=== PATIENT | male | born 1940 | race Caucasian/White ===

== ENCOUNTER 2017-03-29 06:37 | Observation (INO) ==
[2017-03-29] MEDS ORDERED: LACTATED RINGERS 1,000 ML IV ONE (06:59)
--- NOTE | 2017-03-29 07:03 | Emergency Department Note ---
Nausea/Vomiting/Diarrhea HPI - General Chief complaint: Nausea/Vomiting/Diarrhea Stated complaint: Nausea/Vomting since yesterday. Time Seen by Provider: 03/29/17 07:00 Source: patient Mode of arrival: EMS Limitations: no limitations - History of Present Illness HPI Narrative: Patient had 2 episodes of emesis last night. He also had a few episodes of vomiting the night before. He ate a good breakfast yesterday morning but then was more fatigued yesterday during the day, then last night vomited again. He is brought in by ambulance today, brother called EMS when he checked on him early this morning. He had vomited around his mouth and on his clothes. No diarrhea. 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.e denies abdominal pain, denies diarrhea, no fevers or chills, no chest pain or shortness of breath MD complaint: nausea, vomiting - Related Data Home Medications Medication Instructions Recorded Confirmed aspirin 81 mg tablet,delayed 81 mg PO QDAY tab 03/06/15 12/22/16 release cholecalciferol (vitamin D3) 1,000 1,000 unit PO QDAY cap 03/06/15 12/22/16 unit capsule clopidogrel 75 mg tablet 75 mg PO QDAY tab 03/06/15 12/22/16 finasteride 5 mg tablet 5 mg PO QDAY tab 03/06/15 12/22/16 levothyroxine 50 mcg capsule 50 mcg PO QDAY cap 03/06/15 12/22/16 multivitamin tablet 1 tab PO QDAY tab 03/06/15 12/22/16 nitroglycerin 0.4 mg sublingual 0.4 mg SUBLINGUAL Q5MIN PRN tab 03/06/15 tablet sitagliptin 100 mg tablet 100 mg PO QDAY tab 03/06/15 12/22/16 tamsulosin 0.4 mg capsule 0.4 mg PO QDAY cap 03/06/15 12/22/16 gabapentin 100 mg capsule 100 mg PO BID cap 05/14/15 12/22/16 insulin aspart 100 unit/mL 8 unit SUB-Q TID ml 05/14/15 12/22/16 subcutaneous solution insulin glargine 100 unit/mL 35 unit SUB-Q QDAY ml 05/14/15 12/22/16 subcutaneous solution pantoprazole 40 mg tablet,delayed PO 90 Days 12/22/16 12/22/16 release Previous Rx's Medication Instructions Recorded HYDROcodone/APAP 5/325MG [[place] 1 - 2 tab PO Q4HP PRN #30 tab 09/22/15 5/325Mg] furosemide 40 mg tablet 40 mg PO BID #180 tab 12/22/16 Allergies Allergy/AdvReac Type Severity Reaction Status Date / Time clindamycin Allergy Rash Verified 02/20/17 09:27 Review of Systems All systems ED: reviewed and negative except as stated. Constitutional: Denies: fever, chills Cardiovascular: Reports: dyspnea on exertion. Denies: chest pain, palpitations Respiratory: Denies: cough Gastrointestinal: Reports: nausea, vomiting. Denies: abdominal pain, diarrhea, constipation Genitourinary: Denies: as per HPI, dysuria Musculoskeletal: Reports: as per HPI. Denies: back pain Neurological: Reports: weakness. Denies: confusion Endocrine: Reports: fatigue Hematological/Lymphatic: Denies: easy bleeding Allergic/Immunologic: Denies: facial swelling Past Medical History - Past Medical History Source: old records reviewed Medical history: Reports: arthritis, coronary artery disease, diabetes, hyperlipidemia, hypertension, renal disease, thyroid disease, other Surgical history ED: Reports: coronary bypass (CABG), orthopedic, other Psychiatric history: Reports: no psych history Family history: Reports: no significant family history - Social History smoking status: Former smoker Alcohol use: Reports: Rarely Drug use: Reports: none Physical Exam - General Limitations: no limitations General appearance: alert, in no apparent distress - Head Head exam: atraumatic, normocephalic, normal inspection - Eye Eye exam: Present: normal appearance, PERRL, EOMI - ENT ENT exam: normal exam, normal oropharynx, mucous membranes moist - Neck Neck exam: Present: normal inspection, full ROM, trachea midline. Absent: tenderness, meningismus, thyromegaly - Chest Chest inspection: Present: normal inspection, symmetric chest wall rise - Respiratory Respiratory exam: Present: normal lung sounds bilaterally. Absent: respiratory distress, wheezes - Cardiovascular Cardiovascular exam: Present: regular rate, normal heart sounds - Abdominal Exam Abdominal exam: Present: soft, distention, tenderness, normal bowel sounds. Absent: guarding, rebound, rigidity Abdominal tenderness: Present: RUQ, mild - exam: Present: normal inspection - Extremities Exam Extremities exam: Present: normal inspection - Back Exam Back exam: Present: normal inspection, full ROM. Absent: CVA tenderness (R), CVA tenderness (L) - Neurological Exam Neurological exam: Present: alert, oriented X3, CN II-XII intact - Psychiatric Psychiatric exam: Present: normal affect - Skin Skin exam: Present: warm, dry, intact. Absent: rash, cyanosis, pallor Course - Reevaluation(s) Reevaluation #1: The gallbladder ultrasound appears to show acute cholecystitis with a lot of sludge in the gallbladder and thickening of the gallbladder wall. Also a little bit of fluid around the gallbladder. Impression is acute cholecystitis. I talked with Dr. Medellin and he will be admitted to the hospital on IV antibiotics. Vital Signs Temperature 98.4 F 03/29/17 06:38 Pulse Rate 54 L 03/29/17 06:38 Respiratory Rate 18 03/29/17 06:38 Blood Pressure 164/80 03/29/17 06:38 Pulse Oximetry (%) 99 03/29/17 06:38 Temperature 98.4 F 03/29/17 06:38 Pulse Rate 81 03/29/17 07:47 Respiratory Rate 18 03/29/17 06:38 Blood Pressure 168/82 03/29/17 08:17 Pulse Oximetry (%) 97 03/29/17 07:47 Nausea/Vomiting/Diarrhea - [facility] Narrative Medical decision making narrative: impression is acute cholecystitis - Lab Data Result diagrams: 03/29/17 07:14 03/29/17 07:14 Lab Results 03/29/17 03/29/17 Range/Units 07:14 07:14 WBC 14.8 H (4.5-11.0) K/mcL RBC 3.84 L (4.50-5.90) M/mcL Hgb 11.4 L (13.5-16.5) g/dL Hct 33.9 L (41.0-55.0) % MCV 88.3 (80.0-100.0) fL MCH 29.7 (26.0-34.0) pg MCHC 33.6 (31.0-36.0) g/dL RDW 16.2 H (11.5-14.5) % Plt Count 119 L (140-440) K/mcL MPV 9.7 (7.4-10.4) fL Gran % 88.3 H (38.0-78.0) % Lymph % (Auto) 4.9 L (15.5-49.0) % [place] % (Auto) 6.7 (1.0-12.0) % Eos % (Auto) 0 (0.0-7.0) % Baso % (Auto) 0.1 (0.0-2.0) % Gran # 13.1 H (1.8-8.0) K/mcL Lymph # (Auto) 0.7 L (1.5-4.8) K/mcL [place] # (Auto) 1.0 H (0.1-0.9) K/mcL Eos # (Auto) 0 (0.0-0.7) K/mcL Baso # (Auto) 0 (0.0-0.3) K/mcL Sodium 134 (133-145) mmol/L Potassium 4.3 (3.3-5.1) mmol/L Chloride 96 (96-108) mmol/L Carbon Dioxide 20 L (22-30) mmol/L Anion Gap 18.0 H (8-16) BUN 56 H (8-23) mg/dl Creatinine 2.0 H (0.7-1.2) mg/dl GFR Calculation 32 Glucose 335 H (70-105) mg/dL Calcium 8.9 (8.6-10.4) mg/dl Total Bilirubin 0.9 (0.0-1.0) mg/dL AST 14 (0-37) U/l ALT 12 (0-40) U/l Alkaline Phosphatase 72 (39-117) U/L C-Reactive Protein 7.7 H (0.0-0.8) mg/dl Total Protein 6.6 (5.9-8.4) gm/dL Albumin 3.7 (3.2-5.2) gm/dL Globulin 2.9 (2.2-3.7) gm/dL Albumin/Globulin Ratio 1.3 (1.0-2.3) Lipase 16 (7-60) U/L Disposition Pt seen by [facility]MAN/PA only: No Clinical Impression: Acute cholecystitis Disposition: Xfer As Outpt/Obs ([facility]) Condition: Fair Referrals: Regan Cannon MD [Primary Care Provider] -
[2017-03-29] MEDS ORDERED: ONDANSETRON 4 MG/2 ML VIAL IV ONE (07:05)
[2017-03-29 07:40] LABS: Basophils # (Auto) 0 K/mcL (0.0-0.3); Basophils % (Auto) 0.1 % (0.0-2.0); Eosinophils # (Auto) 0 K/mcL (0.0-0.7); Eosinophils % (Auto) 0 % (0.0-7.0); Granulocytes % (Auto) 88.3 % (38.0-78.0); Lymphocytes # (Auto) 0.7 K/mcL (1.5-4.8); Lymphocytes % (Auto) 4.9 % (15.5-49.0); Mean Cell Volume 88.3 fL (80.0-100.0); Mean Corpuscular HGB Conc 33.6 g/dL (31.0-36.0); Mean Corpuscular Hemoglobin 29.7 pg (26.0-34.0); Monocytes % (Auto) 6.7 % (1.0-12.0); Platelet Count 119 K/mcL (140-440); RBC 3.84 M/mcL (4.50-5.90); Red Cell Distribution Width 16.2 % (11.5-14.5)
[2017-03-29 07:58] LABS: ALT/SGPT 12 U/l (0-40); Albumin 3.7 gm/dL (3.2-5.2); Albumin/Globulin Ratio 1.3 (1.0-2.3); Alkaline Phosphatase 72 U/L (39-117); Blood Urea Nitrogen 56 mg/dl (8-23); C-Reactive Protein 7.7 mg/dl (0.0-0.8); Lipase 16 U/L (7-60)
[2017-03-29] MEDS ORDERED: ONDANSETRON 4 MG/2 ML VIAL IV PRN (08:52)
--- NOTE | 2017-03-29 09:07 | Ultrasound Report ---
CLINICAL INFORMATION: Right upper quadrant pain. Nausea and vomiting. TECHNIQUE: Grayscale and color flow Doppler spectral imaging COMPARISON: 09/18/2015 FINDINGS: Abnormal gallbladder. There is a large amount of echogenic material within the gallbladder lumen consistent with stones and sludge. There is some acoustic shadowing. There is no vascular mass. Gallbladder wall is thickened and measures 5 to 6 mm. There is mild pericholecystic fluid. No significantly dilated bile ducts. No intrahepatic bile duct dilatation. Common bile duct measures 6 mm maximally. Negative liver. No focal intrahepatic abnormality. Normal smooth liver contour. No evidence for cirrhosis. No ascites. Normal hepatopedal portal venous flow. Visualized portions of the pancreas are negative. IMPRESSION: 1. Abnormal gallbladder. Stones and sludge are identified. There is gallbladder wall thickening and mild pericholecystic fluid. Findings are consistent with cholecystitis 2. Interval worsening since 09/18/2015 Interpreted and Authenticated by: Cristian Byrd 03/29/17
[2017-03-29] MEDS: PIPERACILLIN SODIUM/TAZOBACTAM 3.375 GM in DEXTROSE 5% IN WATER 50 ML IV SCH ×3 (10:01→21:44)
[2017-03-29] MEDS ORDERED: DEXTROSE 50% 50 ML VIAL IV PRN (11:12)
[2017-03-29] MEDS: INSULIN LISPRO 1 UNIT/0.01 ML UNIT SQ SCH ×4 (11:35→23:57)
[2017-03-29] MEDS: LACTATED RINGERS 1,000 ML IV SCH ×4 (12:05→23:57)
--- NOTE | 2017-03-29 12:25 | XRay Report ---
CLINICAL INFORMATION: Preoperative chest x-ray TECHNIQUE: Semierect AP portable chest x-ray COMPARISON: 10/21/2016, 04/08/2016 FINDINGS: Previous median sternotomy Cardiomegaly. This is stable. No pulmonary edema. No pulmonary congestion. No focal pulmonary parenchymal infiltrate or mass. Lungs are negative. IMPRESSION: 1. Cardiomegaly. No pulmonary congestion or congestive heart failure 2. No acute abnormality. No interval change since 10/21/2016 Interpreted and Authenticated by: Cristian Byrd 03/29/17
[2017-03-29 15:30] LABS: Hemoglobin A1C 7.5 % HGB (4.0-6.0)
--- NOTE | 2017-03-29 16:29 | General Surg History&Physical ---
History of Present Illness Patient information: Note initiated : 03/29/17 at 4:27 pm Service Date, if different from initiated Date: [] Patient: Doni Ramirez 76 y/o M admitted on 03/29/17 for Nausea/Vomting since yesterday.. Chief Complaint: [] HPI: Mr. Ramirez is a 76 year old M admitted with a 2 day history of nausea and vomiting. He had multiple episodes of emesis of bile and food over the past 2 days. He has been unable to keep any food down. He had some epigastric and right upper quadrant pain which was exacerbated by eating. He has known gallstones from previous evaluation. Ultrasound done today confirms the presence of large volume of sludge and gallstones. He also has a thickened gallbladder wall and pericholecystic fluid with white blood count of 14,000. He has cholecystitis and is admitted for treatment. He also has significant dehydration in combination with chronic renal failure and will need rehydration prior to operative therapy. Review of Systems - Constitutional anorexia, fatigue, lethargy, malaise, weakness - EENT Eyes: bilateral: blurred vision, decreased vision Ears: bilateral: decreased hearing Nose, mouth and throat: abnormal hearing, dizziness, headache(s), neck pain - Cardiovascular dyspnea, edema, irregular heart rhythm, leg edema, leg ulcers, palpatations, pedal edema, slow heart rate - Respiratory dyspnea on exertion, chest congestion - Gastrointestinal abdominal pain, bloating, constipation, heartburn, nausea, vomiting - Genitourinary change in urinary stream, difficulty urinating, post void dribbling, urinary hesitancy, urinary incontinence - Musculoskeletal abnormal gait, back pain, joint swelling, muscle cramps, myalgias, numbness, radiating pain into limb, stiffness, tingling - Integumentary alopecia, dry skin, rash, skin ulcer, no changing lesions, no new lesions - Neurological abnormal hearing, numbness, sensory deficit, tingling, weakness - Psychiatric anxiety, depression - Endocrine fatigue - Hematologic/Lymphatic easy bleeding, easy bruising, no lymphadenopathy - Allergic/Immunologic no tongue swelling, no throat swelling, no uticaria, no wheezing, no lip swelling Past History Past medical history: Chronic atrial fibrillation Chronic bradycardia Coronary artery disease Diabetes mellitus type 2 Hypertension Severe peripheral vascular disease Chronic kidney disease stage III Splenomegaly Chronic anemia Thrombocytopenia Chronic ulcers right knee and left plantar surface Chronic urinary retention due to BPH Past surgical history: Angioplasty thrombolysis and stenting left lower extremity 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 Split thickness skin graft left foot and right lower extremity OTIF left hip ORIF right femur Appendectomy Coronary artery bypass graft 6 Past family history: Strong history of coronary artery disease Past social history: Former smoker Occasional alcohol use Denies drug use Medications and Allergies Home Medications Medication Instructions Recorded Confirmed Type aspirin 81 mg tablet,delayed 81 mg PO QDAY tab 03/06/15 03/29/17 History release cholecalciferol (vitamin D3) 1,000 1,000 unit PO QDAY cap 03/06/15 03/29/17 History unit capsule clopidogrel 75 mg tablet 75 mg PO QDAY tab 03/06/15 03/29/17 History finasteride 5 mg tablet 5 mg PO QDAY tab 03/06/15 03/29/17 History levothyroxine 50 mcg capsule 50 mcg PO QDAY cap 03/06/15 03/29/17 History multivitamin tablet 1 tab PO QDAY tab 03/06/15 03/29/17 History nitroglycerin 0.4 mg sublingual 0.4 mg SUBLINGUAL Q5MIN PRN tab 03/06/15 History tablet sitagliptin 100 mg tablet 100 mg PO QDAY tab 03/06/15 03/29/17 History tamsulosin 0.4 mg capsule 0.4 mg PO QDAY cap 03/06/15 03/29/17 History gabapentin 100 mg capsule 100 mg PO BID cap 05/14/15 03/29/17 History insulin aspart 100 unit/mL 8 unit SUB-Q TID ml 05/14/15 03/29/17 History subcutaneous solution insulin glargine 100 unit/mL 35 unit SUB-Q QDAY ml 05/14/15 03/29/17 History subcutaneous solution HYDROcodone/APAP 5/325MG [[place] 1 - 2 tab PO Q4HP PRN #30 tab 09/22/15 03/29/17 Rx 5/325Mg] furosemide 40 mg tablet 40 mg PO BID #180 tab 12/22/16 03/29/17 Rx pantoprazole 40 mg tablet,delayed 40 mg PO QDAY 90 Days 12/22/16 03/29/17 History release Carvedilol [Coreg] 3.125 mg PO BID 03/29/17 03/29/17 History Lisinopril [Zestril] 2.5 mg PO BID 03/29/17 03/29/17 History Allergies Allergy/AdvReac Type Severity Reaction Status Date / Time clindamycin Allergy Rash Verified 02/20/17 09:27 Exam Temp Pulse Resp BP Pulse Ox 97.6 F 58 L 20 142/83 95 03/29/17 16:00 03/29/17 10:02 03/29/17 16:00 03/29/17 16:00 03/29/17 16:00 - General physical appearance well developed, moderate distress, moderate pain, chronically ill, obese - Eyes normal ocular movement, other (Operative changes of both eyes) - ENT normal pinna, normal nares, normal mucosa, no hearing loss, no congestion, decreased hearing - Head Head exam IM: Present: atraumatic, normal inspection, normocephalic - Neck no masses, no bruits, trachea midline, no lymphadectomy, no venous distension, other (No bruit) - Cardiovascular Cardiovascular exam IM: Present: irregular rhythm, +S1, +S2, systolic murmur. Absent: JVD Intensity IM: 09/19 Cardiovascular: Absent peripheral pulses in upper extremities and lower extremities bilaterally - Respiratory normal expansion, normal respiratory effort, clear to percussion, clear to auscultation - Abdomen Abdomen: Present: soft, tender, bowel sounds, distended (Distended with right upper quadrant tenderness and epigastric tenderness) Hernia: Present: none, umbilical (Large umbilical hernia reducible) - Genitourinary Present: normal penis with no external lesions - Integumentary Present: no rash, no growths, no abnormal pigmentation, other (Chronic superficial ulcerations of both lower extremities in various stages of healing; open poorly healing ulceration right anterior knee; open ulceration distal aspect of transmetatarsal amputation on plantar surface with some purulent drainage) - Neurologic Present: normal coordination, other (Decreased sensation left leg) - Musculoskeletal Present: other (Transmetatarsal amputation left lower extremity below the knee amputation right lower extremity;) - Psychiatric Present: oriented to time, oriented to person, oriented to place, speech is normal, memory intact, other ( very flat affect and poor to respond ;somewhat withdrawn;) Assessment and Plan (1) Cholelithiasis and acute cholecystitis without obstruction will need operative therapy after dehydration has been stabilized Status: Acute (2) Chronic kidney disease, stage III (moderate) Exacerbation of chronic kidney disease due to recurrent nausea vomiting, antihypertensive medications, diuretics. And the patient will be slowly rehydrated; diuretics will be withheld prior to surgery Status: Chronic (3) Coronary artery disease Echocardiogram will be ordered Status: Chronic Qualifiers: Coronary Disease-Associated Artery/Lesion type: [place] artery [place] vs. transplanted heart: [place] heart Associated angina: without angina Qualified Code(s): I25.10 - Atherosclerotic heart disease of [place] coronary artery without angina pectoris (4) Diabetes mellitus Status: Chronic Comment: type 2 Qualifiers: Diabetes mellitus type: type 2 Diabetes mellitus complication status: with circulatory complication Diabetes mellitus complication detail: with other circulatory complications Diabetes mellitus terminal operations supervisor insulin use: unspecified mcc insulin use status Qualified Code(s): E11.59 - Type 2 diabetes mellitus with other circulatory complications (5) Hypertensive renal disease Status: Chronic Qualifiers: Hypertensive chronic kidney disease stage: stage 1-4 or unspecified chronic kidney disease Qualified Code(s): I12.9 - Hypertensive chronic kidney disease with stage 1 through stage 4 chronic kidney disease, or unspecified chronic kidney disease (6) PVD (peripheral vascular disease) Status: Chronic
[2017-03-29 20:19] LABS: Blood Urea Nitrogen 54 mg/dl (8-23)
[2017-03-30 01:56] LABS: Appearance,Urine HAZY; Bacteria,Urine FEW /hpf (0); Bilirubin,Urine NEG (NEG); Color,Urine YELLOW; Glucose,Urine (UA) 50 mg/dL (NEG); Leukocyte Esterase,Urine 500 /uL (NEG); Nitrate,Urine NEG (NEG); Protein,Urine 100 mg/dL (NEG); Specific Gravity,Urine 1.019 (1.000-1.035); Urine Blood 0.2 mg/dL (<0.03); Urine Budding Yeast FEW /hpf (0); Urine RBC 14 /hpf (0-1); Urine Squamous Epithelial Cell 8 /hpf (0-4); Urine Transitional Epi Cells < 1 /hpf (0-2); Urine WBC 86 /hpf (0-4); Urobilinogen,Urine NEG (NEG)
[2017-03-30] MEDS: LACTATED RINGERS 1,000 ML IV SCH ×7 (02:07→23:20)
[2017-03-30] MEDS: PIPERACILLIN SODIUM/TAZOBACTAM 3.375 GM in DEXTROSE 5% IN WATER 50 ML IV SCH ×3 (05:57→22:00)
[2017-03-30] MEDS ORDERED: DEXTROSE 50% 50 ML VIAL IV PRN (06:28)
[2017-03-30 07:01] LABS: Blood Urea Nitrogen 50 mg/dl (8-23)
[2017-03-30] MEDS: INSULIN LISPRO 1 UNIT/0.01 ML UNIT SQ SCH ×5 (09:42→21:09)
--- NOTE | 2017-03-30 16:39 | General Surgery Progress Note ---
Subjective Patient reports: feels better, still having pain, pain is less, tolerating liquids well, flatus, bowel movement, afebrile Narrative: Note initiated : 03/30/17 at 4:37 pm Service Date, if different from initiated Date: [] Patient: Doni Ramirez 76 y/o M admitted on 03/29/17 for Nausea/Vomting since yesterday.. Chief Complaint: [Patient feels much better. He has had minimal nausea and his pain has resolved. He has been afebrile. His urine output is decreased but his BUN and creatinine are improving. He does not complain of any shortness of breath or chest pain. His surgery has been delayed until tomorrow morning] Objective Temp Pulse Resp BP Pulse Ox 98.0 F 41 L 20 131/80 96 03/30/17 16:00 03/30/17 04:00 03/30/17 16:00 03/30/17 16:00 03/30/17 16:00 - Additional Data Intake & Output - Last 24 hours: Intake & Output 03/28/17 03/29/17 03/30/17 03/31/17 05:59 05:59 05:59 05:59 Intake Total 2420 / 3420 1120 / 1120 Output Total 2 / Balance 2413 / 3413 1118 / 1118 Weight 198 lb 198 lb - General physical appearance no distress, no pain, chronically ill, obese - Eyes PERRL - ENT no congestion - Neck no venous distension - Cardiovascular Cardiovascular exam: Present: bradycardia, irregular rhythm, +S1, +S2. Absent: JVD - Abdomen soft, non tender, bowel sounds, distended (Obese abdomen but nondistended; good active bowel sounds; nontender in epigastrium and right upper quadrant) - Integumentary no rash, no growths, no abnormal pigmentation - Neurologic normal coordination, normal sensation - Psychiatric oriented to time, oriented to person, oriented to place, speech is normal, memory intact - Labs 03/29/17 07:14 03/30/17 05:18 Diabetes panel 03/29/17 03/30/17 Range/Units 19:00 05:18 Sodium 135 135 (133-145) mmol/L Potassium 4.2 4.2 (3.3-5.1) mmol/L Chloride 99 100 (96-108) mmol/L Carbon Dioxide 22 24 (22-30) mmol/L BUN 54 H 50 H (8-23) mg/dl Creatinine 1.9 H 1.8 H (0.7-1.2) mg/dl Glucose 194 H 150 H (70-105) mg/dL Calcium 8.7 8.5 L (8.6-10.4) mg/dl Calcium panel 03/29/17 03/30/17 Range/Units 19:00 05:18 Calcium 8.7 8.5 L (8.6-10.4) mg/dl Pituitary panel 03/29/17 03/30/17 Range/Units 19:00 05:18 Sodium 135 135 (133-145) mmol/L Potassium 4.2 4.2 (3.3-5.1) mmol/L Chloride 99 100 (96-108) mmol/L Carbon Dioxide 22 24 (22-30) mmol/L BUN 54 H 50 H (8-23) mg/dl Creatinine 1.9 H 1.8 H (0.7-1.2) mg/dl Glucose 194 H 150 H (70-105) mg/dL Calcium 8.7 8.5 L (8.6-10.4) mg/dl Adrenal panel 03/29/17 03/30/17 Range/Units 19:00 05:18 Sodium 135 135 (133-145) mmol/L Potassium 4.2 4.2 (3.3-5.1) mmol/L Chloride 99 100 (96-108) mmol/L Carbon Dioxide 22 24 (22-30) mmol/L BUN 54 H 50 H (8-23) mg/dl Creatinine 1.9 H 1.8 H (0.7-1.2) mg/dl Glucose 194 H 150 H (70-105) mg/dL Calcium 8.7 8.5 L (8.6-10.4) mg/dl Assessment and Plan (1) Cholelithiasis and acute cholecystitis without obstruction Status: Acute Assessment and plan: We will proceed with laparoscopic cholecystectomy in the morning Current Visit: Yes (2) Chronic kidney disease, stage III (moderate) Status: Chronic Assessment and plan: BUN and creatinine have improved with rehydration Current Visit: No (3) Coronary artery disease Status: Chronic Current Visit: No (4) Diabetes mellitus Problem details: type 2 Status: Chronic Current Visit: No (5) Hypertensive renal disease Status: Chronic Current Visit: No (6) PVD (peripheral vascular disease) Status: Chronic Current Visit: No - Time Spent With Patient Total time spent is greater than 50% in coordination of care (as documented) at patient's floor/unit and/or counseling patient:
[2017-03-31 05:52] LABS: Basophils # (Auto) 0 K/mcL (0.0-0.3); Basophils % (Auto) 0.3 % (0.0-2.0); Eosinophils # (Auto) 0.2 K/mcL (0.0-0.7); Granulocytes % (Auto) 70.5 % (38.0-78.0); Lymphocytes # (Auto) 1.5 K/mcL (1.5-4.8); Lymphocytes % (Auto) 19.5 % (15.5-49.0); Mean Cell Volume 89.9 fL (80.0-100.0); Mean Corpuscular HGB Conc 33.4 g/dL (31.0-36.0); Monocytes # (Auto) 0.6 K/mcL (0.1-0.9); Monocytes % (Auto) 7.7 % (1.0-12.0); Platelet Count 109 K/mcL (140-440); RBC 3.69 M/mcL (4.50-5.90); Red Cell Distribution Width 16.1 % (11.5-14.5)
[2017-03-31] MEDS: PIPERACILLIN SODIUM/TAZOBACTAM 3.375 GM in DEXTROSE 5% IN WATER 50 ML IV SCH ×3 (06:00→21:09)
[2017-03-31 06:21] LABS: ALT/SGPT 13 U/l (0-40); Albumin/Globulin Ratio 1.2 (1.0-2.3); Alkaline Phosphatase 62 U/L (39-117); Bilirubin,Direct < 0.2 mg/dL (0.0-0.3); Blood Urea Nitrogen 38 mg/dl (8-23); Gamma Glutamyl Transpeptidase 18 U/L (8-61); Magnesium 1.9 mg/dL (1.6-2.5); Uric Acid 7.6 mg/dL (2.5-8.0)
[2017-03-31] MEDS ORDERED: GLYCOPYRROLATE 0.2 MG/ML VIAL IV ONE (07:55)
[2017-03-31] MEDS ORDERED: LIDOCAINE HCL/PF 100 MG/5 ML SYRINGE IV ONE (07:55)
[2017-03-31] MEDS ORDERED: SUCCINYLCHOLINE 20 MG/ML ML IV ONE (07:55)
[2017-03-31] MEDS ORDERED: ROCURONIUM 10 MG/ML ML IV ONE (07:55)
[2017-03-31] MEDS ORDERED: ETOMIDATE 20 MG/10 ML VIAL IV ONE (07:55)
[2017-03-31] MEDS ORDERED: ONDANSETRON 4 MG/2 ML VIAL IV ONE (07:55)
[2017-03-31] MEDS ORDERED: KETAMINE 100 MG/ML ML IV ONE (07:55)
[2017-03-31] MEDS ORDERED: MIDAZOLAM 2 MG/2 ML VIAL IV ONE (07:55)
[2017-03-31] MEDS ORDERED: EPINEPHrine 1 MG/ML (1:1000) VIAL IV ONE (07:55)
[2017-03-31] MEDS ORDERED: PROPOFOL 200 MG/20 ML VIAL IV ONE (07:55)
[2017-03-31] MEDS ORDERED: fentaNYL 250 MCG/5 ML VIAL IV ONE (07:55)
[2017-03-31] MEDS ORDERED: DEXAMETHASONE 10 MG/ML VIAL IV ONE (07:55)
[2017-03-31] MEDS ORDERED: BENZOCAINE/MENTHOL 1 LOZENGE PO PRN (08:19)
[2017-03-31] MEDS ORDERED: IPRATROPIUM/ALBUTEROL 3 ML AMPUL.NEB NEB PRN (08:19)
[2017-03-31] MEDS ORDERED: PROMETHAZINE 25 MG/ML VIAL IV PRN (08:19)
[2017-03-31] MEDS ORDERED: LACTATED RINGERS 250 ML IV PRN (08:19)
[2017-03-31] MEDS ORDERED: FLUMAZENIL 0.1 MG/ML ML IV PRN (08:19)
[2017-03-31] MEDS ORDERED: diphenhydrAMINE 50 MG/ML VIAL IV PRN (08:19)
[2017-03-31] MEDS ORDERED: HYDROmorphone 2 MG/ML SYRINGE IV PRN ×2 (08:19→13:23)
[2017-03-31] MEDS ORDERED: METHOCARBAMOL 1,000 MG/10 ML VIAL IV PRN (08:19)
[2017-03-31] MEDS ORDERED: ONDANSETRON 4 MG/2 ML VIAL IV PRN ×2 (08:19→10:01)
[2017-03-31] MEDS ORDERED: ATROPINE SULFATE 0.4 MG/ML VIAL IV PRN (08:19)
[2017-03-31] MEDS ORDERED: fentaNYL 100 MCG/2 ML VIAL IV PRN (08:19)
[2017-03-31] MEDS ORDERED: ePHEDrine 50 MG/ML AMPUL IV PRN (08:19)
[2017-03-31] MEDS ORDERED: MEPERIDINE 25 MG/ML SYRINGE IV PRN (08:19)
[2017-03-31] MEDS ORDERED: NALOXONE HCL 0.4 MG/ML VIAL IV PRN (08:19)
[2017-03-31] MEDS ORDERED: LACTATED RINGERS 1,000 ML IV SCH ×2 (08:30→18:45)
--- NOTE | 2017-03-31 08:50 | Brief Operative Note ---
Date of procedure: 03/31/17 Pre-op diagnosis: acute cholecystitis with cholelithiasis Post-op diagnosis: same Procedure: laparoscopic cholecystectomy Grafts/Implants: No Anesthesia: GETA Findings: severe inflammation with thickened gallbladder Complications: none Surgeon: Joseph Medellin Estimated blood loss (cc): 10 Specimens Removed/Pathology: other (gallbladder) Condition: stable Disposition: PACU
[2017-03-31] MEDS ORDERED: DEXTROSE 50% 50 ML VIAL IV PRN ×2 (10:01)
[2017-03-31] MEDS: LACTATED RINGERS 1,000 ML IV SCH ×4 (10:05→18:38)
[2017-03-31] MEDS: INSULIN LISPRO 1 UNIT/0.01 ML UNIT SQ SCH ×4 (10:06→21:08)
[2017-03-31] MEDS ORDERED: chlordiazePOXIDE 25 MG CAPSULE PO PRN (13:23)
[2017-03-31] MEDS: CARVEDILOL 3.125 MG TABLET PO SCH (18:09)
--- NOTE | 2017-03-31 18:44 | General Surgery Consult Note ---
History of Present Illness Patient information: Note initiated : 03/31/17 at 6:42 pm Service Date, if different from initiated Date: [] Patient: Doni Ramirez 76 y/o M admitted on 03/29/17 for Nausea/Vomting since yesterday.. Chief Complaint: [] Consult date: 03/31/17 Requesting physician: Joseph Medellin (wound care) History of present illness: I know this patient from before. He is well established with the wound care clinic. Currently, patient has an open wound on the anterior aspect of his right knee AND left foot plantar neuropathic ulcer. Patient has had all toes amputated. this time around, and was admitted to the hospital with acute abdominal pain and cholecystitis. He subsequently, underwent laparoscopic cholecystectomy. Patient's right anterior knee and left plantar ulcers are stable. I concur with ongoing treatment for same. I have reviewed his records, seen him before and after his cholecystectomy. I spoke at length with patient and his brother . Plan on seeing h im for f/u at the wound care clinic after his recovery from this operation, Medications and Allergies Home Medications Medication Instructions Recorded Confirmed Type aspirin 81 mg tablet,delayed 81 mg PO QDAY tab 03/06/15 03/29/17 History release cholecalciferol (vitamin D3) 1,000 1,000 unit PO QDAY cap 03/06/15 03/29/17 History unit capsule clopidogrel 75 mg tablet 75 mg PO QDAY tab 03/06/15 03/29/17 History finasteride 5 mg tablet 5 mg PO QDAY tab 03/06/15 03/29/17 History levothyroxine 50 mcg capsule 50 mcg PO QDAY cap 03/06/15 03/29/17 History multivitamin tablet 1 tab PO QDAY tab 03/06/15 03/29/17 History nitroglycerin 0.4 mg sublingual 0.4 mg SUBLINGUAL Q5MIN PRN tab 03/06/15 History tablet sitagliptin 100 mg tablet 100 mg PO QDAY tab 03/06/15 03/29/17 History tamsulosin 0.4 mg capsule 0.4 mg PO QDAY cap 03/06/15 03/29/17 History gabapentin 100 mg capsule 100 mg PO BID cap 05/14/15 03/29/17 History insulin aspart 100 unit/mL 8 unit SUB-Q TID ml 05/14/15 03/29/17 History subcutaneous solution insulin glargine 100 unit/mL 35 unit SUB-Q QDAY ml 05/14/15 03/29/17 History subcutaneous solution HYDROcodone/APAP 5/325MG [[place] 1 - 2 tab PO Q4HP PRN #30 tab 09/22/15 03/29/17 Rx 5/325Mg] furosemide 40 mg tablet 40 mg PO BID #180 tab 12/22/16 03/29/17 Rx pantoprazole 40 mg tablet,delayed 40 mg PO QDAY 90 Days 12/22/16 03/29/17 History release Carvedilol [Coreg] 3.125 mg PO BID 03/29/17 03/29/17 History Lisinopril [Zestril] 2.5 mg PO BID 03/29/17 03/29/17 History Allergies Allergy/AdvReac Type Severity Reaction Status Date / Time clindamycin Allergy Mild Rash Verified 03/31/17 13:40 Exam Temp Pulse Resp BP Pulse Ox 97.7 F 58 L 20 160/71 96 03/31/17 16:00 03/31/17 09:50 03/31/17 16:00 03/31/17 16:00 03/31/17 16:00 Results - Labs 04/01/17 03:45 04/01/17 06:13 Abnormal lab results 03/31/17 03/31/17 Range/Units 04:51 04:51 RBC 3.69 L (4.50-5.90) M/mcL Hgb 11.1 L (13.5-16.5) g/dL Hct 33.1 L (41.0-55.0) % RDW 16.1 H (11.5-14.5) % Plt Count 109 L (140-440) K/mcL BUN 38 H (8-23) mg/dl Creatinine 1.6 H (0.7-1.2) mg/dl Glucose 134 H (70-105) mg/dL Calcium 8.5 L (8.6-10.4) mg/dl Total Protein 5.5 L (5.9-8.4) gm/dL Albumin 3.0 L (3.2-5.2) gm/dL Diabetes panel 03/31/17 Range/Units 04:51 Sodium 138 (133-145) mmol/L Potassium 3.9 (3.3-5.1) mmol/L Chloride 102 (96-108) mmol/L Carbon Dioxide 23 (22-30) mmol/L BUN 38 H (8-23) mg/dl Creatinine 1.6 H (0.7-1.2) mg/dl Glucose 134 H (70-105) mg/dL Calcium 8.5 L (8.6-10.4) mg/dl AST 15 (0-37) U/l ALT 13 (0-40) U/l Alkaline Phosphatase 62 (39-117) U/L Total Protein 5.5 L (5.9-8.4) gm/dL Albumin 3.0 L (3.2-5.2) gm/dL Triglycerides 124 (<150) mg/dl Calcium panel 03/31/17 Range/Units 04:51 Calcium 8.5 L (8.6-10.4) mg/dl Phosphorus 2.8 (2.7-4.5) mg/dL Albumin 3.0 L (3.2-5.2) gm/dL Pituitary panel 03/31/17 Range/Units 04:51 Sodium 138 (133-145) mmol/L Potassium 3.9 (3.3-5.1) mmol/L Chloride 102 (96-108) mmol/L Carbon Dioxide 23 (22-30) mmol/L BUN 38 H (8-23) mg/dl Creatinine 1.6 H (0.7-1.2) mg/dl Glucose 134 H (70-105) mg/dL Calcium 8.5 L (8.6-10.4) mg/dl Adrenal panel 03/31/17 Range/Units 04:51 Sodium 138 (133-145) mmol/L Potassium 3.9 (3.3-5.1) mmol/L Chloride 102 (96-108) mmol/L Carbon Dioxide 23 (22-30) mmol/L BUN 38 H (8-23) mg/dl Creatinine 1.6 H (0.7-1.2) mg/dl Glucose 134 H (70-105) mg/dL Calcium 8.5 L (8.6-10.4) mg/dl Total Bilirubin 0.5 (0.0-1.0) mg/dL AST 15 (0-37) U/l ALT 13 (0-40) U/l Alkaline Phosphatase 62 (39-117) U/L Total Protein 5.5 L (5.9-8.4) gm/dL Albumin 3.0 L (3.2-5.2) gm/dL All other labs normal. Assessment and Plan (1) Osteomyelitis of ankle or foot Status: Chronic Priority: Medium Comment: Wound care / dressings and IV antibiotics. 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
[2017-03-31] MEDS: HYDROmorphone 2 MG/ML SYRINGE IM PRN (20:38)
[2017-03-31] MEDS: GABAPENTIN 100 MG CAPSULE PO SCH (20:47)
[2017-04-01] MEDS: HYDROmorphone 2 MG/ML SYRINGE IM PRN (03:27)
[2017-04-01 05:53] LABS: Mean Cell Volume 90.6 fL (80.0-100.0); Mean Corpuscular HGB Conc 33.5 g/dL (31.0-36.0); Mean Corpuscular Hemoglobin 30.3 pg (26.0-34.0); Platelet Count 135 K/mcL (140-440); RBC 3.63 M/mcL (4.50-5.90); Red Cell Distribution Width 16.4 % (11.5-14.5)
[2017-04-01] MEDS ORDERED: HYDROcodone/APAP 5/325MG TABLET PO PRN ×2 (06:26→15:00)
[2017-04-01] MEDS ORDERED: LEVOFLOXACIN 750 MG TABLET PO ONE (06:30)
[2017-04-01 06:33] LABS: Anisocytosis 1+ (NONE SEEN); Band Neutrophils % 2 % (0-10); Basophils % (Manual) 1 % (0-2); Lymphocytes % 15 % (15-49); Monocytes % (Manual) 7 % (1-12); Ovalocytes 1+ (NONE SEEN); Platelet Estimate DECREASED (NORMAL); RBC Morphology ABNORM (NORMAL); Segmented Neutrophils % 75 % (38-78)
[2017-04-01 07:26] LABS: ALT/SGPT 19 U/l (0-40); Albumin 2.7 gm/dL (3.2-5.2); Alkaline Phosphatase 53 U/L (39-117); Bilirubin,Direct < 0.2 mg/dL (0.0-0.3); Blood Urea Nitrogen 34 mg/dl (8-23); Gamma Glutamyl Transpeptidase 17 U/L (8-61); Magnesium 1.9 mg/dL (1.6-2.5); Uric Acid 7.5 mg/dL (2.5-8.0)
[2017-04-01] MEDS ORDERED: PANTOPRAZOLE 40 MG TABLET PO SCH (07:30)
[2017-04-01] MEDS ORDERED: LEVOTHYROXINE 50 MCG TABLET PO SCH (07:30)
[2017-04-01] MEDS ORDERED: TAMSULOSIN 0.4 MG CAPSULE PO SCH (09:00)
[2017-04-01] MEDS ORDERED: FINASTERIDE 5 MG TABLET PO SCH (09:00)
[2017-04-01] MEDS ORDERED: CLOPIDOGREL 75 MG TABLET PO SCH (09:00)
--- NOTE | 2017-04-01 13:38 | Surgical Pathology Report ---
HISTOLOGY SPECIMEN MICROSCOPIC DIAGNOSIS GALLBLADDER, CHOLECYSTECTOMY: -- ACUTE AND CHRONIC CHOLECYSTITIS WITH CHOLELITHIASIS. -- SEROSAL ADHESIONS. ([facility]) CLINICAL HISTORY Vomiting. PROCEDURAL IMPRESSION Cholecystitis; cholelithiasis. GROSS DESCRIPTION Received in formalin labeled gallbladder, is a purple-[place] gallbladder with an overlying layer of fat. It is 7.0 x 2.4 x 2.3 cm. There are multiple metal clips identified; however, there is not a clip on the duct. The specimen contains black-brown sludge consisting of stones from less than 0.1 to 0.1 cm in greatest dimension. The mucosa is scott and rough surfaced. The wall is up to 0.3 cm thick. Procurement Buyer sections submitted - one cassette. ([facility]) Electronically Signed by: Violeta Busby D.O.
[2017-04-01] MEDS: GABAPENTIN 100 MG CAPSULE PO SCH (13:46)
[2017-04-01] MEDS: CARVEDILOL 3.125 MG TABLET PO SCH (13:48)
[2017-04-01] MEDS: INSULIN LISPRO 1 UNIT/0.01 ML UNIT SQ SCH ×2 (13:48→16:11)
[2017-04-01] MEDS ORDERED: NITROGLYCERIN 0.4 MG TAB.SUBL SL PRN (15:00)
--- NOTE | 2017-04-01 15:14 | General Surgery Progress Note ---
Subjective Patient reports: feels better, still having pain, tolerating a regular diet, flatus, bowel movement, afebrile Narrative: Note initiated : 04/01/17 at 3:11 pm Service Date, if different from initiated Date: [] Patient: Doni Ramirez 76 y/o M admitted on 03/29/17 for Nausea/Vomting since yesterday.. Chief Complaint: [Patient is stable. He appears to be more agitated than usual but his vital signs are stable. He complains of shortness of breath but his oxygen saturation is 94-96% on room air and his respiratory rate is 16-18 lying flat in bed. He does not have any rales rhonchi or wheezes. He denies abdominal pain and he has tolerated his diet without difficulty.] Objective Temp Pulse Resp BP Pulse Ox 97.7 F 44 L 20 160/75 94 04/01/17 12:00 04/01/17 04:00 04/01/17 12:00 04/01/17 12:00 04/01/17 12:00 - Additional Data Intake & Output - Last 24 hours: Intake & Output 03/30/17 03/31/17 04/01/17 04/02/17 05:59 05:59 05:59 05:59 Intake Total 2420 / 3420 3507 / 3507 1775 / 1775 120 / 120 Output Total 1075 / 1075 Balance 2413 / 3413 3504 / 3504 700 / 700 120 / 120 Weight 198 lb 199 lb 202 lb - General physical appearance no distress, moderate pain - Eyes PERRL - ENT no congestion - Neck no venous distension - Respiratory clear to auscultation - Cardiovascular Cardiovascular exam: Present: irregular rhythm, +S1, +S2. Absent: JVD - Abdomen soft, distended (Abdomen is mildly distended but soft; he has good active bowel sounds. His incisions look good) Hernia: umbilical - Integumentary no rash, no growths, no abnormal pigmentation - Psychiatric oriented to time, oriented to person, oriented to place, speech is normal, memory intact - Labs 04/01/17 03:45 04/01/17 06:13 Diabetes panel 04/01/17 04/01/17 Range/Units 03:45 06:13 Sodium Not Reportable 137 Potassium Not Reportable 4.3 Chloride Not Reportable 103 Carbon Dioxide Not Reportable 23 BUN Not Reportable 34 H Creatinine Not Reportable 1.7 H Glucose TNP 180 H Calcium Not Reportable 8.5 L AST Not Reportable 19 ALT Not Reportable 19 Alkaline Phosphatase Not Reportable 53 Total Protein Not Reportable 5.3 L Albumin Not Reportable 2.7 L Triglycerides Not Reportable 99 Calcium panel 04/01/17 04/01/17 Range/Units 03:45 06:13 Calcium Not Reportable 8.5 L Phosphorus Not Reportable 2.9 Albumin Not Reportable 2.7 L Pituitary panel 04/01/17 04/01/17 Range/Units 03:45 06:13 Sodium Not Reportable 137 Potassium Not Reportable 4.3 Chloride Not Reportable 103 Carbon Dioxide Not Reportable 23 BUN Not Reportable 34 H Creatinine Not Reportable 1.7 H Glucose TNP 180 H Calcium Not Reportable 8.5 L Adrenal panel 04/01/17 04/01/17 Range/Units 03:45 06:13 Sodium Not Reportable 137 Potassium Not Reportable 4.3 Chloride Not Reportable 103 Carbon Dioxide Not Reportable 23 BUN Not Reportable 34 H Creatinine Not Reportable 1.7 H Glucose TNP 180 H Calcium Not Reportable 8.5 L Total Bilirubin Not Reportable 0.6 AST Not Reportable 19 ALT Not Reportable 19 Alkaline Phosphatase Not Reportable 53 Total Protein Not Reportable 5.3 L Albumin Not Reportable 2.7 L Assessment and Plan (1) Cholelithiasis and acute cholecystitis without obstruction Status: Acute Assessment and plan: Patient is stable for discharge home Current Visit: Yes (2) Chronic kidney disease, stage III (moderate) Status: Chronic Assessment and plan: BUN and creatinine have improved with rehydration Current Visit: No (3) Coronary artery disease Status: Chronic Current Visit: No (4) Diabetes mellitus Problem details: type 2 Status: Chronic Current Visit: No (5) Hypertensive renal disease Status: Chronic Current Visit: No (6) PVD (peripheral vascular disease) Status: Chronic Current Visit: No - Time Spent With Patient Total time spent is greater than 50% in coordination of care (as documented) at patient's floor/unit and/or counseling patient:
[2017-04-01] MEDS ORDERED: PNEUMOCOCCAL 23-VAL P-SAC VAC 0.5 ML VIAL IM ONE (15:45)
[2017-04-01] MEDS ORDERED: INSULIN LISPRO 1 UNIT/0.01 ML UNIT SQ SCH (17:30)
[2017-04-01] MEDS ORDERED: LISINOPRIL 5 MG TABLET PO SCH (21:00)
[2017-04-01] MEDS ORDERED: FUROSEMIDE 40 MG TABLET PO SCH (21:00)
[2017-04-02] MEDS ORDERED: FINASTERIDE 5 MG TABLET PO SCH (09:00)
[2017-04-02] MEDS ORDERED: VITAMIN D3 1,000 UNIT TABLET PO SCH (09:00)
[2017-04-02] MEDS ORDERED: INSULIN GLARGINE, HUMAN 1 UNIT/0.01 ML SQ SCH (09:00)
[2017-04-02] MEDS ORDERED: ASPIRIN 81 MG TAB.CHEW PO SCH (09:00)
[2017-04-02] MEDS ORDERED: sitaGLIPtin 100 MG TABLET PO SCH (09:00)
[2017-04-02] MEDS ORDERED: MULTIVIT,THER IRON,CA,FA & MIN 1 TABLET PO SCH (09:00)
== END 2017-04-01 16:55 | disposition home or self-care (01) ==
LOC: MEDSUR 06:37 → ED 06:37 → MEDSUR 10:00
PROVIDERS: ADMIT Family Medicine Adult Medicine; ATTEND Family Medicine Adult Medicine

== ENCOUNTER 2017-06-05 09:29 | Inpatient (IN) ==
[2017-06-05] MEDS ORDERED: MAGNESIUM SULFATE 2 GM/50 ML BAG IV ONE (09:39)
[2017-06-05] MEDS ORDERED: PIPERACILLIN SODIUM/TAZOBACTAM 4.5 GM in DEXTROSE 5% IN WATER 50 ML IV ONE (09:42)
--- NOTE | 2017-06-05 09:46 | Emergency Department Note ---
Altered Mental Status HPI - General Chief Complaint: Altered Mental Status Stated Complaint: altered mental Source: EMS Mode of arrival: EMS Limitations: no limitations - History of Present Illness HPI Narrative: Patient presents from home, currently under the care of his brother. Currently receiving antibiotic therapy for left foot infection. Patient apparently increasingly confused and weak, unable to care for self at home. Incontinent of urine. Patient unable to give history, mumbling. Brought in by ambulance - Related Data Home Medications Medication Instructions Recorded Confirmed aspirin 81 mg tablet,delayed 81 mg PO QDAY tab 03/06/15 04/14/17 release cholecalciferol (vitamin D3) 1,000 1,000 unit PO QDAY cap 03/06/15 04/14/17 unit capsule clopidogrel 75 mg tablet 75 mg PO QDAY tab 03/06/15 04/14/17 finasteride 5 mg tablet 5 mg PO QDAY tab 03/06/15 04/14/17 levothyroxine 50 mcg capsule 50 mcg PO QDAY cap 03/06/15 04/14/17 multivitamin tablet 1 tab PO QDAY tab 03/06/15 04/14/17 nitroglycerin 0.4 mg sublingual 0.4 mg SUBLINGUAL Q5MIN PRN tab 03/06/15 tablet sitagliptin 100 mg tablet 100 mg PO QDAY tab 03/06/15 04/14/17 tamsulosin 0.4 mg capsule 0.4 mg PO QDAY cap 03/06/15 04/14/17 gabapentin 100 mg capsule 100 mg PO BID cap 05/14/15 04/14/17 insulin aspart 100 unit/mL 8 unit SUB-Q TID ml 05/14/15 04/14/17 subcutaneous solution insulin glargine 100 unit/mL 35 unit SUB-Q QDAY ml 05/14/15 04/14/17 subcutaneous solution pantoprazole 40 mg tablet,delayed 40 mg PO QDAY 90 Days 12/22/16 04/14/17 release ferrous sulfate 325 mg (65 mg 325 mg PO QDAY 04/14/17 04/14/17 iron) tablet Previous Rx's Medication Instructions Recorded HYDROcodone/APAP 5/325MG [[place] 1 - 2 tab PO Q4HP PRN #30 tab 09/22/15 5/325Mg] furosemide 40 mg tablet 40 mg PO BID #180 tab 04/10/17 Allergies Allergy/AdvReac Type Severity Reaction Status Date / Time clindamycin Allergy Mild Rash Verified 04/14/17 08:43 Review of Systems All systems ED: reviewed and negative except as stated. Past Medical History - Past Medical History Attestation: Yes: The following information was validated with the patient. Source: old records reviewed Medical history: Reports: arthritis, coronary artery disease, diabetes, hyperlipidemia, hypertension, renal disease, thyroid disease, other Surgical history ED: Reports: coronary bypass (CABG), orthopedic, other Psychiatric history: Reports: no psych history - Social History smoking status: Never smoker Alcohol use: Reports: Rarely Drug use: Reports: none Physical Exam - General Limitations: no limitations General appearance: obtunded - Head Head exam: atraumatic, normocephalic - Eye Eye exam: Present: normal appearance, PERRL - ENT ENT exam: normal exam, mucous membranes moist - Neck Neck exam: Present: normal inspection. Absent: lymphadenopathy - Chest Chest inspection: Present: normal inspection - Respiratory Respiratory exam: Present: normal lung sounds bilaterally. Absent: respiratory distress - Cardiovascular Cardiovascular exam: Present: regular rate, irregular rhythm - Abdominal Exam Abdominal exam: Present: soft, hernia (periumbilical, soft). Absent: tenderness - Extremities Exam Extremities exam: Present: other (right BKA; right midfoot amputation, bandaged with dried blood, pretibial with warmth erythema, 2+ edema, numerous shallow ulcers, several superficial abrasions hemostatic) - Back Exam Back exam: Present: normal inspection - Neurological Exam Neurological exam: Absent: alert, oriented X3 - Skin Skin exam: Absent: cyanosis, mottled Course - Reevaluation(s) Reevaluation #1: more alert,interactive.; POLST form completed, DNR with limited discussed with , willing for admission Time: 12:28 Vital Signs Temperature 101.3 F H 06/05/17 09:31 Pulse Rate 113 H 06/05/17 09:31 Respiratory Rate 27 H 06/05/17 09:31 Blood Pressure 173/74 06/05/17 09:31 Pulse Oximetry (%) 92 06/05/17 09:31 Temperature 100.2 F H 06/05/17 12:19 Pulse Rate 65 06/05/17 12:19 Respiratory Rate 30 H 06/05/17 12:19 Blood Pressure 148/66 06/05/17 12:19 Pulse Oximetry (%) 95 06/05/17 12:19 Altered Mental Status - Lab Data Result diagrams: 06/05/17 09:40 06/05/17 09:40 Lab Results 06/05/17 06/05/17 06/05/17 Range/Units 09:40 09:40 09:40 WBC 14.9 H (4.5-11.0) K/mcL RBC 3.90 L (4.50-5.90) M/mcL Hgb 11.2 L (13.5-16.5) g/dL Hct 33.8 L (41.0-55.0) % POC Hct 36.0 L (41.0-55.0) % MCV 86.7 (80.0-100.0) fL MCH 28.7 (26.0-34.0) pg MCHC 33.1 (31.0-36.0) g/dL RDW 17.8 H (11.5-14.5) % Plt Count 162 (140-440) K/mcL MPV 9.2 (7.4-10.4) fL Gran % 89.6 H (38.0-78.0) % Lymph % (Auto) 3.8 L (15.5-49.0) % [place] % (Auto) 4.8 (1.0-12.0) % Eos % (Auto) 1.8 (0.0-7.0) % Baso % (Auto) 0 (0.0-2.0) % Gran # 13.4 H (1.8-8.0) K/mcL Lymph # (Auto) 0.6 L (1.5-4.8) K/mcL [place] # (Auto) 0.7 (0.1-0.9) K/mcL Eos # (Auto) 0.3 (0.0-0.7) K/mcL Baso # (Auto) 0 (0.0-0.3) K/mcL ABG Methemoglobin (0.4-1.5) % VBG pH (7.32-7.42) U VBG pCO2 (41.0-51.0) mmHg VBG pO2 (25-40) mmHg VBG HCO3 (24.0-28.0) mmol/L VBG Total CO2 (25.0-29.0) mmol/L VBG O2 Saturation (40.0-70.0) % VBG Base Excess (-2.0-2.0) VBG Lactic Acid 2.0 (0.5-2.2) mmol/L Carboxyhemoglobin (0.0-1.5) % THgb Total Hemoglobin (13.5-16.5) gm/dL O2 Delivery Level POC Sodium 140 (133-145) mmol/L Sodium 140 (133-145) mmol/L POC Potassium 3.9 (3.3-5.1) mmol/L Potassium 3.9 (3.3-5.1) mmol/L POC Chloride 106 (96-108) mmol/L Chloride 102 (96-108) mmol/L Carbon Dioxide 18 L (22-30) mmol/L POC Total CO2 20 L (22-30) mmol/L Anion Gap 20.0 H (8-16) POC BUN 36 H (8-23) mg/dl BUN 41 H (8-23) mg/dl Creatinine 1.8 H (0.7-1.2) mg/dl POC Creatinine 1.7 H (0.7-1.2) mg/dl GFR Calculation 36 Glucose 355 H (70-105) mg/dL POC Glucose 341 H (70-105) mg/dL Calcium 8.9 (8.6-10.4) mg/dl POC WB Ioniz Calcium 1.15 L (1.16-1.32) mmol/L Total Bilirubin 1.0 (0.0-1.0) mg/dL AST 15 (0-37) U/l ALT 12 (0-40) U/l Alkaline Phosphatase 72 (39-117) U/L Troponin T (0-0.03) ng/ml Total Protein 7.0 (5.9-8.4) gm/dL Albumin 3.6 (3.2-5.2) gm/dL Globulin 3.4 (2.2-3.7) gm/dL Albumin/Globulin Ratio 1.1 (1.0-2.3) Urine Color Urine Appearance Urine pH (5.0-9.0) Ur Specific [place] (1.000-1.035) Urine Protein (NEG) mg/dL Urine Glucose (UA) (NEG) mg/dL Urine Ketones (NEG) mg/dL Urine Occult Blood (<0.03) mg/dL Urine Nitrate (NEG) Urine Bilirubin (NEG) mg/dL Urine Urobilinogen (NEG) mg/dL Ur Leukocyte Esterase (NEG) /uL Urine RBC (0-1) /hpf Urine WBC (0-4) /hpf Ur Squamous Epith Cells (0-4) /hpf Urine Bacteria (0) /hpf Urine Mucus (0) /hpf Ur Culture Indicated? 06/05/17 06/05/17 06/05/17 Range/Units 09:40 10:20 11:37 WBC (4.5-11.0) K/mcL RBC (4.50-5.90) M/mcL Hgb (13.5-16.5) g/dL Hct (41.0-55.0) % POC Hct (41.0-55.0) % MCV (80.0-100.0) fL MCH (26.0-34.0) pg MCHC (31.0-36.0) g/dL RDW (11.5-14.5) % Plt Count (140-440) K/mcL MPV (7.4-10.4) fL Gran % (38.0-78.0) % Lymph % (Auto) (15.5-49.0) % [place] % (Auto) (1.0-12.0) % Eos % (Auto) (0.0-7.0) % Baso % (Auto) (0.0-2.0) % Gran # (1.8-8.0) K/mcL Lymph # (Auto) (1.5-4.8) K/mcL [place] # (Auto) (0.1-0.9) K/mcL Eos # (Auto) (0.0-0.7) K/mcL Baso # (Auto) (0.0-0.3) K/mcL ABG Methemoglobin 0.3 L (0.4-1.5) % VBG pH 7.45 H (7.32-7.42) U VBG pCO2 25.8 L (41.0-51.0) mmHg VBG pO2 122 H (25-40) mmHg VBG HCO3 17.7 L (24.0-28.0) mmol/L VBG Total CO2 18.5 L (25.0-29.0) mmol/L VBG O2 Saturation 93.2 H (40.0-70.0) % VBG Base Excess -5.0 L (-2.0-2.0) VBG Lactic Acid (0.5-2.2) mmol/L Carboxyhemoglobin 5.2 H (0.0-1.5) % THgb Total Hemoglobin 10.8 L (13.5-16.5) gm/dL O2 Delivery Level Not Reportable POC Sodium (133-145) mmol/L Sodium (133-145) mmol/L POC Potassium (3.3-5.1) mmol/L Potassium (3.3-5.1) mmol/L POC Chloride (96-108) mmol/L Chloride (96-108) mmol/L Carbon Dioxide (22-30) mmol/L POC Total CO2 (22-30) mmol/L Anion Gap (8-16) POC BUN (8-23) mg/dl BUN (8-23) mg/dl Creatinine (0.7-1.2) mg/dl POC Creatinine (0.7-1.2) mg/dl GFR Calculation Glucose (70-105) mg/dL POC Glucose (70-105) mg/dL Calcium (8.6-10.4) mg/dl POC WB Ioniz Calcium (1.16-1.32) mmol/L Total Bilirubin (0.0-1.0) mg/dL AST (0-37) U/l ALT (0-40) U/l Alkaline Phosphatase (39-117) U/L Troponin T 0.05 H* (0-0.03) ng/ml Total Protein (5.9-8.4) gm/dL Albumin (3.2-5.2) gm/dL Globulin (2.2-3.7) gm/dL Albumin/Globulin Ratio (1.0-2.3) Urine Color Yellow Urine Appearance Hazy Urine pH 5.0 (5.0-9.0) Ur Specific [place] 1.016 (1.000-1.035) Urine Protein >=500 A (NEG) mg/dL Urine Glucose (UA) >=500 A (NEG) mg/dL Urine Ketones Neg (NEG) mg/dL Urine Occult Blood 0.2 A (<0.03) mg/dL Urine Nitrate Neg (NEG) Urine Bilirubin Neg (NEG) mg/dL Urine Urobilinogen Neg (NEG) mg/dL Ur Leukocyte Esterase Neg (NEG) /uL Urine RBC 7 H (0-1) /hpf Urine WBC 2 (0-4) /hpf Ur Squamous Epith Cells < 1 (0-4) /hpf Urine Bacteria 0 (0) /hpf Urine Mucus Few (0) /hpf Ur Culture Indicated? No - Radiology Data Radiology results reviewed: Yes I reviewed the patient's radiology results. no acute findings on chest x-ray - EKG Data EKG attestation: Yes I reviewed and interpreted this EKG. EKG results narrative: runs of PVCs Critical Care Time Critical Care Time: Yes Total Critical Care Time: 60 (acute delirium consistent with early sepsis, ectopy) Disposition Pt seen by [facility] only: No Clinical Impression: SIRS (systemic inflammatory response syndrome), Acute delirium Cellulitis Qualifiers: Site of cellulitis: extremity Site of cellulitis of extremity: lower extremity Laterality: left Qualified Code(s): L03.116 - Cellulitis of left lower limb Summary: patient high risk for doing poorly, already on daptomycin and failing; cultures ordered prior to antibiotics; considered for vancomycin, deferred to admitting physician Disposition: Xfer As Inpt ([facility]) Condition: Serious Referrals: Regan Cannon MD [Primary Care Provider] -
--- NOTE | 2017-06-05 10:04 | XRay Report ---
CLINICAL INFORMATION: CHF COMPARISON: 06/03/2017 FINDINGS: The heart is mildly enlarged - decreased slightly. Mediastinum is unremarkable. Pulmonary vessels have returned to near normal in caliber. There is only minimal residual interstitial edema. No infiltrates or effusions IMPRESSION: Near complete resolution in CHF Interpreted and Authenticated by: Cristian Johnson 06/05/17
[2017-06-05 10:20] LABS: Basophils # (Auto) 0 K/mcL (0.0-0.3); Basophils % (Auto) 0 % (0.0-2.0); Eosinophils # (Auto) 0.3 K/mcL (0.0-0.7); Eosinophils % (Auto) 1.8 % (0.0-7.0); Granulocytes % (Auto) 89.6 % (38.0-78.0); Lymphocytes # (Auto) 0.6 K/mcL (1.5-4.8); Lymphocytes % (Auto) 3.8 % (15.5-49.0); Mean Cell Volume 86.7 fL (80.0-100.0); Mean Corpuscular HGB Conc 33.1 g/dL (31.0-36.0); Mean Corpuscular Hemoglobin 28.7 pg (26.0-34.0); Monocytes # (Auto) 0.7 K/mcL (0.1-0.9); Monocytes % (Auto) 4.8 % (1.0-12.0); Platelet Count 162 K/mcL (140-440); Red Cell Distribution Width 17.8 % (11.5-14.5)
[2017-06-05] MEDS ORDERED: 0.9 % SODIUM CHLORIDE 1,000 ML IV ONE (10:37)
[2017-06-05 10:46] LABS: ALT/SGPT 12 U/l (0-40); Albumin 3.6 gm/dL (3.2-5.2); Albumin/Globulin Ratio 1.1 (1.0-2.3); Alkaline Phosphatase 72 U/L (39-117); Blood Urea Nitrogen 41 mg/dl (8-23)
[2017-06-05 10:46] LABS: ABG Methemoglobin 0.3 % (0.4-1.5); VBG HCO3 17.7 mmol/L (24.0-28.0); VBG Oxygen Saturation 93.2 % (40.0-70.0); VBG PCO2 25.8 mmHg (41.0-51.0); VBG PH 7.45 U (7.32-7.42); VBG PO2 122 mmHg (25-40); VBG Total CO2 18.5 mmol/L (25.0-29.0)
[2017-06-05 12:09] LABS: Appearance,Urine HAZY; Bacteria,Urine 0 /hpf (0); Bilirubin,Urine NEG (NEG); Color,Urine YELLOW; Glucose,Urine (UA) >=500 mg/dL (NEG); Leukocyte Esterase,Urine NEG /uL (NEG); Mucus,Urine FEW /hpf (0); Nitrate,Urine NEG (NEG); Protein,Urine >=500 mg/dL (NEG); Specific Gravity,Urine 1.016 (1.000-1.035); Urine Blood 0.2 mg/dL (<0.03); Urine RBC 7 /hpf (0-1); Urine Squamous Epithelial Cell < 1 /hpf (0-4); Urine WBC 2 /hpf (0-4); Urobilinogen,Urine NEG (NEG)
[2017-06-05] MEDS: GENTAMICIN SULFATE 40 MG, CLINDAMYCIN 300 MG, BACITRACIN 25,000 UNIT in SODIUM CHLORIDE... IRR SCH ×3 (13:35→21:18)
--- NOTE | 2017-06-05 14:40 | Internal Med History&Physical ---
Medical - H&P: HPI Patient information: Note initiated : 06/05/17 at 2:32 pm Service Date, if different from initiated Date: [] Patient: Doni Ramirez 77 y/o M admitted on for altered mental. Chief Complaint: [] History of present illness: Mr. Ramirez is a 77 year old with a history of type 2 diabetes, hypertension, chronic kidney disease, peripheral vascular disease, coronary disease who was treated recently for cellulitis. He also had a laparoscopic cholecystectomy in March. He has a chronic right knee ulcer as well as a left foot plantar neuropathic ulcer. He is generally followed at wound care. Today, his brother had him brought to the emergency room, for increasing confusion and high fever. ER evaluation showed leukocytosis, confusion, fever, consistent with SIRS syndrome. Patient is now admitted for further evaluation and treatment. By the time I got to see the patient, his brother had unfortunately gone home. The patient remains fairly lethargic and unable to answer most questions. On arrival, he was complaining of left-sided chest discomfort, which she could not really describe very well. He was given 2 sublingual nitroglycerin, after which he said the pain resolved. He is unable otherwise to tell me if he has recently had fever or chills, cough , chest pain or palpitations, shortness of breath, GI or symptoms. While he was in the emergency room he was noted to have lots of ectopy on his heart monitor. Medical History Arthritis of left wrist (Acute) Cholecystitis, acute (Acute) Colvin catheter in place prior to arrival (Acute) Fracture of femur (Acute) s/p IM nguyen right femur. wound care consult for wound management to right anterior knee (existing wound on admit) as well as chronic wound managment to left lower extremity. . Gallstones (Acute) w/out mention of obstruction Hyperkalemia (Acute) Incomplete bladder emptying (Acute) 10/02/14 Splenomegaly (Acute) UTI (urinary tract infection), bacterial (Acute) Urinary incontinence (Acute) Anemia (Chronic) Hb above threshold for VENESSA monitor Chronic kidney disease, stage III (moderate) (Chronic) Most recent s.creat is 1.8 which equals to egfr of 37ml/min per MDRD equation Baseline s.creat is 1.2-1.3-1.5-1.6-1.4-1.6-1.8 he has near nephrotic range proteinuria he has h/o uncontrolled DM type 2 with secondary complications as risk factor for renal disease Coronary artery disease (Chronic) Diabetes mellitus (Chronic) type 2 Edema (Chronic) Gross hematuria (Chronic) Hyperlipidemia (Chronic) Hypertension (Chronic) Hypothyroidism (acquired) (Chronic) PVD (peripheral vascular disease) (Chronic) Secondary hyperparathyroidism of renal origin (Chronic) Urinary retention (Chronic) 06/29/14--Dr. Lincoln Abdominal pain (Resolved) Anemia (Resolved) Fluid overload (Resolved) Hip fracture (Resolved) Surgical History Amputated toe (Acute) bilateral toes H/O knee surgery (Acute) History of appendectomy (Acute) H/O coronary artery bypass surgery (Chronic) 6 coronary bypasses Medication List aspirin 81 mg PO QDAY cholecalciferol (vitamin D3) 1,000 units PO QDAY clopidogrel 75 mg PO QDAY finasteride 5 mg PO QDAY furosemide 40 mg PO BID gabapentin 100 mg PO BID hydrocodone-acetaminophen 5-325 mg 1 - 2 tabs PO Q4HP PRN insulin aspart 8 units Sub-Q TID insulin glargine 35 units Sub-Q QDAY levothyroxine 50 mcg PO QDAY multivitamin tablet 1 tab PO QDAY nitroglycerin 0.4 mg Sublingual Q5MIN PRN pantoprazole 40 mg PO 90 days sitagliptin 100 mg PO QDAY tamsulosin 0.4 mg PO QDAY Ferrous sulfate 325 mg daily Allergies/Adverse Reaction clindamycin Allergy (Verified 02/20/17 09:27) Rash Family History Father Myocardial Infarction Mother Myocardial Infarction Social history: Patient reportedly lives with his brother who also has his POA.. He was a previous smoker, but quit in 1976. He does not use alcohol. Medical - H&P: Meds Home Medications Medication Instructions Recorded Confirmed Type aspirin 81 mg tablet,delayed 81 mg PO QDAY tab 03/06/15 06/05/17 History release cholecalciferol (vitamin D3) 1,000 1,000 unit PO QDAY cap 03/06/15 06/05/17 History unit capsule clopidogrel 75 mg tablet 75 mg PO QHS tab 03/06/15 06/05/17 History finasteride 5 mg tablet 5 mg PO QDAY tab 03/06/15 06/05/17 History levothyroxine 50 mcg capsule 50 mcg PO QDAY cap 03/06/15 06/05/17 History multivitamin tablet 1 tab PO QDAY tab 03/06/15 06/05/17 History nitroglycerin 0.4 mg sublingual 0.4 mg SUBLINGUAL Q5MIN PRN tab 03/06/15 History tablet sitagliptin 100 mg tablet 100 mg PO QDAY tab 03/06/15 06/05/17 History tamsulosin 0.4 mg capsule 0.4 mg PO QDAY cap 03/06/15 06/05/17 History gabapentin 100 mg capsule 100 mg PO BID cap 05/14/15 06/05/17 History insulin aspart 100 unit/mL 8 unit SUB-Q ACHS ml 05/14/15 06/05/17 History subcutaneous solution insulin glargine 100 unit/mL 35 unit SUB-Q QDAY ml 05/14/15 06/05/17 History subcutaneous solution HYDROcodone/APAP 5/325MG [[place] 1 - 2 tab PO Q4HP PRN #30 tab 09/22/15 06/05/17 Rx 5/325Mg] furosemide 40 mg tablet 40 mg PO BID #180 tab 12/22/16 06/05/17 Rx pantoprazole 40 mg tablet,delayed 40 mg PO QDAY 90 Days 12/22/16 06/05/17 History release ferrous sulfate 325 mg (65 mg 325 mg PO QDAY 04/14/17 06/05/17 History iron) tablet Allergies Allergy/AdvReac Type Severity Reaction Status Date / Time clindamycin Allergy Mild Rash Verified 04/14/17 08:43 Medical - H&P: Exam - Constitutional Vitals: Temp Pulse Resp BP Pulse Ox 98.6 F 64 31 H 147/92 100 06/05/17 14:01 06/05/17 14:01 06/05/17 14:01 06/05/17 14:01 06/05/17 14:01 On arrival, temperature 101.3, heart rate 113, respiratory rate 16-27, blood pressure 173/74, O2 saturation 92% on room air On exam, he is a fairly lethargic elderly man, who will sometimes give 1 word answers when questioned, but otherwise keeps his eyes closed and grimaces. Head: Normocephalic atraumatic. Eyes: Pupils are pinpoint, EOMI, anicteric. Ears: Canals are occluded by cerumen bilaterally. Pharynx: Mucosa is markedly dry. He is edentulous. Neck: Appears supple, without obvious JVD, thyromegaly, bruits, lymphadenopathy. Cardiac exam: Shows regular rate and rhythm with normal S1 and S2. No murmurs, rubs, gallops are noted. lungs: Are clear to auscultation, without obvious rales, rhonchi, wheezes. Abdomen: Is soft, without apparent tenderness. Bowel sounds are active. No masses are appreciated. Abdomen is protuberant. 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 This was just recently bandaged. There is apparently a depression bandage to help shrink the stump, placed by or so. Left lower extremity: The foot is bandaged. Wounds were extensively examined, irrigated, and then redressed by in the emergency room. His are not unwrapped. neurologic exam: Patient is fairly attended. He does not answer questions well enough to ascertain his mental status. Motor exam appears grossly nonfocal. Medical - H&P: Reslt - Labs CBC & Chem 7: 06/05/17 09:40 06/05/17 09:40 Labs: Short CBC 06/05/17 Range/Units 09:40 WBC 14.9 H (4.5-11.0) K/mcL Hgb 11.2 L (13.5-16.5) g/dL Hct 33.8 L (41.0-55.0) % Plt Count 162 (140-440) K/mcL BMP 06/05/17 09:40 Sodium 140 Potassium 3.9 Chloride 102 Carbon Dioxide 18 L BUN 41 H Creatinine 1.8 H Glucose 355 H Calcium 8.9 Cardiac Enzymes 06/05/17 Range/Units 09:40 Troponin T 0.05 H* (0-0.03) ng/ml Liver Function 06/05/17 Range/Units 09:40 Total Bilirubin 1.0 (0.0-1.0) mg/dL AST 15 (0-37) U/l ALT 12 (0-40) U/l Alkaline Phosphatase 72 (39-117) U/L Albumin 3.6 (3.2-5.2) gm/dL Urine 06/05/17 Range/Units 11:37 Urine Color Yellow Urine Appearance Hazy Urine pH 5.0 (5.0-9.0) Ur Specific [place] 1.016 (1.000-1.035) Urine Protein >=500 A (NEG) mg/dL Urine Glucose (UA) >=500 A (NEG) mg/dL June 05: CBC: White blood cell count 14,900, hemoglobin 11, hematocrit 33.8, RDW 17, absolute granulocyte count 13,400, lymphocyte count 600 Venous blood gas: PH 7.45 CO2 25, PO2 122, lactic acid normal at 2.0 Chemistry panel: Bicarb is low at 18, anion gap elevated at 20, BUN 41, creatinine 1.8, glucose 355, ionized calcium low at 1.15 Troponin is elevated at 0.05 Urinalysis: Shows greater than 500 mg of protein, greater than 500 glucose, negative nitrites and negative leukocyte esterase. Chest x-ray shows mild cardiomegaly. CHF seen on June 03, shows near complete resolution. Next EKG: Is probable atrial fibrillation at a rate of 72, left axis deviation, probable old anteroseptal TX, PVCs noted, no significant ST-T changes when compared to his last EKG from March 30, 2017. Frequent ventricular ectopy was noted on arrival to the emergency room. - ABG Interpretation ABG results: 06/05/17 10:20 ABG Methemoglobin 0.3 L VBG pH 7.45 H VBG pCO2 25.8 L VBG pO2 122 H VBG HCO3 17.7 L VBG Total CO2 18.5 L VBG O2 Saturation 93.2 H VBG Base Excess -5.0 L Medical - H&P: A/P - Narrative A/P Narrative: #1. Infectious disease. Patient presents with signs and symptoms of SIRS syndrome, presumably due to ongoing left diabetic foot infection. He also presents with medical delirium. -blood and wound cultures pending. -Cover with Zosyn and vancomycin, regarding diabetic foot infection. would also like to continue with daptomycin. -Presenting lactic acid is normal. Check follow-up pro-calcitonin. -Wound care consult, with wound care to follow regarding irrigations and dressings. Infection is likely due to ongoing wounds of both lower extremities , complicated by peripheral vascular disease and diabetes. 2. Neurologic. Patient appears to be suffering with medical delirium. 3. Endocrine. History of type 2 diabetes. Patient presents with hyperglycemia. -IV fluids. -Accu-Cheks and sliding scale insulin. -hypothyroidism. Continue levothyroxine. 4. Cardiac. History of coronary artery disease. Probable recent CHF. -Coronary artery disease. Patient has chest pain on arrival. This resolves after 2 sublingual nitroglycerin. Believe he has a history of intermittent angina at home. Second troponin did bump a little, but again is unclear how to interpret this in the setting of his renal failure. I have added nitroglycerin paste, and 1 loading dose of Lovenox. He will continue with aspirin and Plavix. He is not currently on a beta-ilia, apparently had some difficulties with bradycardia in the past. We may need to retry a beta-ilia if he continues to have ectopy and/or angina. EKG does not appear to show acute changes. -Hypertension. Continue aspirin. Resume Lasix once blood pressure is stable and renal function is to baseline. 5. Vascular. Known vascular disease, likely contributing to poor wound healing. Continue Plavix and aspirin. 6. Renal. History of stage III kidney disease, followed by Dr. Brown. Creatinine is slightly elevated over his baseline. Also previous history of hyperkalemia. -IV fluids. Continue to monitor. -Patient also has secondary hyperparathyroidism. 7. . History of urine retention. Also history of UTI. Next line check post void residuals, and/or place a Colvin catheter. 8. DVT prophylaxis: Continue aspirin and Plavix. Consider adding low-dose heparin until more mobile. 9. CODE STATUS: The patient's brother apparently signed a post form asking for DNR today. 10. GI. Status post recent laparoscopic cholecystectomy March 29, 2017. Approximately 75 minutes has been spent so far today, reviewing the patient's case with the ER MD, interviewing and examining him, reviewing test results and ordering more tests, and reviewing plan of care with staff.
--- NOTE | 2017-06-05 15:47 | General Surgery Consult Note ---
History of Present Illness Patient information: Note initiated : 06/05/17 at 3:41 pm Service Date, if different from initiated Date: [] Patient: Doni Ramirez 77 y/o M admitted on for altered mental. Chief Complaint: [] Consult date: 06/05/17 (Wound care consult. ) Requesting physician: Harshad Lincoln (SEPSIS, Cellulitis Left foot and leg. ) History of present illness: I saw Mr. Doni Pruitt in the ER along with ALEXANDER Salinas, caring for this patient. Patient is well known to staff at this hospital. He is currently seen in ER for SEPSIS with cellulitis of Left for ulcers at site of TMA and proximal lower leg. He is status post RIGHT anterior knee ( BKA Stump ) wound related plastic surgery at [facility] in [place], [place] by Dr. Lilly. Patient is an insulin dependent diabetic. He recently underwent Debridement of LEFT foot and leg wounds in the wound center. He was started on IV Daptomycin after insertion of a MED line. Patient was admitted via ER with SEPSIS syndrome with low grade fever and leukocytosis. Zosyn was added to IV antibiotic regime od Daptomycin. Patient admitted to ICU for management of other medical problems and on going wound care treatment. Medications and Allergies Home Medications Medication Instructions Recorded Confirmed Type aspirin 81 mg tablet,delayed 81 mg PO QDAY tab 03/06/15 06/05/17 History release cholecalciferol (vitamin D3) 1,000 1,000 unit PO QDAY cap 03/06/15 06/05/17 History unit capsule clopidogrel 75 mg tablet 75 mg PO QHS tab 03/06/15 06/05/17 History finasteride 5 mg tablet 5 mg PO QDAY tab 03/06/15 06/05/17 History levothyroxine 50 mcg capsule 50 mcg PO QDAY cap 03/06/15 06/05/17 History multivitamin tablet 1 tab PO QDAY tab 03/06/15 06/05/17 History nitroglycerin 0.4 mg sublingual 0.4 mg SUBLINGUAL Q5MIN PRN tab 03/06/15 History tablet sitagliptin 100 mg tablet 100 mg PO QDAY tab 03/06/15 06/05/17 History tamsulosin 0.4 mg capsule 0.4 mg PO QDAY cap 03/06/15 06/05/17 History gabapentin 100 mg capsule 100 mg PO BID cap 05/14/15 06/05/17 History insulin aspart 100 unit/mL 8 unit SUB-Q ACHS ml 05/14/15 06/05/17 History subcutaneous solution insulin glargine 100 unit/mL 35 unit SUB-Q QDAY ml 05/14/15 06/05/17 History subcutaneous solution HYDROcodone/APAP 5/325MG [[place] 1 - 2 tab PO Q4HP PRN #30 tab 09/22/15 06/05/17 Rx 5/325Mg] furosemide 40 mg tablet 40 mg PO BID #180 tab 12/22/16 06/05/17 Rx pantoprazole 40 mg tablet,delayed 40 mg PO QDAY 90 Days 12/22/16 06/05/17 History release ferrous sulfate 325 mg (65 mg 325 mg PO QDAY 04/14/17 06/05/17 History iron) tablet Allergies Allergy/AdvReac Type Severity Reaction Status Date / Time clindamycin Allergy Mild Rash Verified 04/14/17 08:43 Exam Temp Pulse Resp BP Pulse Ox 100.8 F H 63 32 H 143/67 98 06/05/17 15:01 06/05/17 15:31 06/05/17 15:31 06/05/17 15:31 06/05/17 15:31 - General physical appearance well developed, well nourished, moderate distress, no pain - Eyes PERRL, normal ocular movement - ENT normal pinna, normal nares, normal mucosa, nasal discharge, other (Stuffy nose.) - Head Head exam IM: Present: atraumatic, normal inspection, normocephalic - Neck no masses, no bruits, trachea midline, no lymphadectomy, no venous distension - Cardiovascular Cardiovascular exam IM: Present: bradycardia - Respiratory normal expansion, normal respiratory effort, other (Decreased AE at the bases) - Abdomen Abdomen: Present: soft, non tender, bowel sounds - Genitourinary Present: normal penis with no external lesions, other (Colvin catheter draining light yellow urine. ) - Integumentary Present: other (Cellulitis LEFT leg with thick callosity around ulcer site of LEFT TMA amputation. Cellulitis extends up to mid third of leg. ) - Neurologic Present: normal coordination, other (Right BK amputation and diabetic neuroathy) - Musculoskeletal Present: other (RIght BKA and LEFT foot TMA with open neuropathic / pressure ulcer mid portion of scar, Adherent eschar and Grade 2 Velazquez Ulcer dorsal surface of left foot and lulcer lower anterior Left leg) - Psychiatric Present: oriented to time, oriented to person, oriented to place, speech is normal, memory intact Results - Labs 06/06/17 04:00 06/06/17 04:00 Abnormal lab results 06/05/17 06/05/17 06/05/17 Range/Units 09:40 09:40 09:40 WBC 14.9 H (4.5-11.0) K/mcL RBC 3.90 L (4.50-5.90) M/mcL Hgb 11.2 L (13.5-16.5) g/dL Hct 33.8 L (41.0-55.0) % POC Hct 36.0 L (41.0-55.0) % RDW 17.8 H (11.5-14.5) % Gran % 89.6 H (38.0-78.0) % Lymph % (Auto) 3.8 L (15.5-49.0) % Gran # 13.4 H (1.8-8.0) K/mcL Lymph # (Auto) 0.6 L (1.5-4.8) K/mcL ABG Methemoglobin (0.4-1.5) % VBG pH (7.32-7.42) U VBG pCO2 (41.0-51.0) mmHg VBG pO2 (25-40) mmHg VBG HCO3 (24.0-28.0) mmol/L VBG Total CO2 (25.0-29.0) mmol/L VBG O2 Saturation (40.0-70.0) % VBG Base Excess (-2.0-2.0) Carboxyhemoglobin (0.0-1.5) % THgb Total Hemoglobin (13.5-16.5) gm/dL Carbon Dioxide 18 L (22-30) mmol/L POC Total CO2 20 L (22-30) mmol/L Anion Gap 20.0 H (8-16) POC BUN 36 H (8-23) mg/dl BUN 41 H (8-23) mg/dl Creatinine 1.8 H (0.7-1.2) mg/dl POC Creatinine 1.7 H (0.7-1.2) mg/dl Glucose 355 H (70-105) mg/dL POC Glucose 341 H (70-105) mg/dL POC WB Ioniz Calcium 1.15 L (1.16-1.32) mmol/L Troponin T 0.05 H* (0-0.03) ng/ml Urine Protein (NEG) mg/dL Urine Glucose (UA) (NEG) mg/dL Urine Occult Blood (<0.03) mg/dL Urine RBC (0-1) /hpf 06/05/17 06/05/17 Range/Units 10:20 11:37 WBC (4.5-11.0) K/mcL RBC (4.50-5.90) M/mcL Hgb (13.5-16.5) g/dL Hct (41.0-55.0) % POC Hct (41.0-55.0) % RDW (11.5-14.5) % Gran % (38.0-78.0) % Lymph % (Auto) (15.5-49.0) % Gran # (1.8-8.0) K/mcL Lymph # (Auto) (1.5-4.8) K/mcL ABG Methemoglobin 0.3 L (0.4-1.5) % VBG pH 7.45 H (7.32-7.42) U VBG pCO2 25.8 L (41.0-51.0) mmHg VBG pO2 122 H (25-40) mmHg VBG HCO3 17.7 L (24.0-28.0) mmol/L VBG Total CO2 18.5 L (25.0-29.0) mmol/L VBG O2 Saturation 93.2 H (40.0-70.0) % VBG Base Excess -5.0 L (-2.0-2.0) Carboxyhemoglobin 5.2 H (0.0-1.5) % THgb Total Hemoglobin 10.8 L (13.5-16.5) gm/dL Carbon Dioxide (22-30) mmol/L POC Total CO2 (22-30) mmol/L Anion Gap (8-16) POC BUN (8-23) mg/dl BUN (8-23) mg/dl Creatinine (0.7-1.2) mg/dl POC Creatinine (0.7-1.2) mg/dl Glucose (70-105) mg/dL POC Glucose (70-105) mg/dL POC WB Ioniz Calcium (1.16-1.32) mmol/L Troponin T (0-0.03) ng/ml Urine Protein >=500 A (NEG) mg/dL Urine Glucose (UA) >=500 A (NEG) mg/dL Urine Occult Blood 0.2 A (<0.03) mg/dL Urine RBC 7 H (0-1) /hpf Diabetes panel 06/05/17 Range/Units 09:40 Sodium 140 (133-145) mmol/L Potassium 3.9 (3.3-5.1) mmol/L Chloride 102 (96-108) mmol/L Carbon Dioxide 18 L (22-30) mmol/L BUN 41 H (8-23) mg/dl Creatinine 1.8 H (0.7-1.2) mg/dl Glucose 355 H (70-105) mg/dL Calcium 8.9 (8.6-10.4) mg/dl AST 15 (0-37) U/l ALT 12 (0-40) U/l Alkaline Phosphatase 72 (39-117) U/L Total Protein 7.0 (5.9-8.4) gm/dL Albumin 3.6 (3.2-5.2) gm/dL Calcium panel 06/05/17 Range/Units 09:40 Calcium 8.9 (8.6-10.4) mg/dl Albumin 3.6 (3.2-5.2) gm/dL Pituitary panel 06/05/17 Range/Units 09:40 Sodium 140 (133-145) mmol/L Potassium 3.9 (3.3-5.1) mmol/L Chloride 102 (96-108) mmol/L Carbon Dioxide 18 L (22-30) mmol/L BUN 41 H (8-23) mg/dl Creatinine 1.8 H (0.7-1.2) mg/dl Glucose 355 H (70-105) mg/dL Calcium 8.9 (8.6-10.4) mg/dl Adrenal panel 06/05/17 Range/Units 09:40 Sodium 140 (133-145) mmol/L Potassium 3.9 (3.3-5.1) mmol/L Chloride 102 (96-108) mmol/L Carbon Dioxide 18 L (22-30) mmol/L BUN 41 H (8-23) mg/dl Creatinine 1.8 H (0.7-1.2) mg/dl Glucose 355 H (70-105) mg/dL Calcium 8.9 (8.6-10.4) mg/dl Total Bilirubin 1.0 (0.0-1.0) mg/dL AST 15 (0-37) U/l ALT 12 (0-40) U/l Alkaline Phosphatase 72 (39-117) U/L Total Protein 7.0 (5.9-8.4) gm/dL Albumin 3.6 (3.2-5.2) gm/dL All other labs normal. Assessment and Plan (1) SIRS (systemic inflammatory response syndrome) Assessment: SIRS CSSSI left foot and leg with cellulitis and DM Velazquez 2 DFU. Other co morbid medical problems, IDDM, CRF, ASHD Bed/ wheelchair confinement Plan: IV antibiotics, Local wound care. Dressing changes TID GCB dressings along with MIST therpy using VASHE. Treatment plan discussed with Hospitalist Dr. Ramos and nursing staff. Following patient along with Hospitalist Physician. Status: Acute Priority: High Comment: SIRS, OPEN wounds Left foot DM Velazquez 2 TMA stump and dorsal surfqce of left foot and ulcer up to sub cuatneous adipoe tissue anterior lower leg . CELLULITIS foot and leg
[2017-06-05] MEDS ORDERED: MAGNESIUM HYDROXIDE 30 ML ORAL.SUSP PO PRN (17:26)
[2017-06-05] MEDS ORDERED: DEXTROSE 31 GM ORAL.SUSP PO PRN (17:26)
[2017-06-05] MEDS ORDERED: NITROGLYCERIN 0.4 MG TAB.SUBL SL PRN (17:26)
[2017-06-05] MEDS ORDERED: ALBUTEROL SULFATE 2.5 MG/3 ML NEBULIZER NEB PRN (17:26)
[2017-06-05] MEDS ORDERED: ONDANSETRON 4 MG/2 ML VIAL IV PRN (17:26)
[2017-06-05] MEDS ORDERED: DEXTROSE 50% 50 ML VIAL IV PRN (17:26)
[2017-06-05] MEDS ORDERED: POTASSIUM CHLORIDE 20 MEQ in 0.9 % SODIUM CHLORIDE 1,000 ML IV SCH (17:26)
[2017-06-05] MEDS ORDERED: INSULIN ASPART SUB-Q SCH (17:26)
[2017-06-05] MEDS ORDERED: DOCUSATE SODIUM 100 MG CAPSULE PO PRN (17:26)
[2017-06-05] MEDS ORDERED: VANCOMYCIN PER PHARMACY IV ONE (17:26)
[2017-06-05] MEDS ORDERED: NALOXONE HCL 0.4 MG/ML VIAL IV PRN (17:26)
[2017-06-05] MEDS ORDERED: NITROGLYCERIN 0.4 MG TAB.SUBL SL ONE ×3 (17:30→20:03)
[2017-06-05] MEDS: INSULIN LISPRO 1 UNIT/0.01 ML UNIT SQ SCH ×2 (18:53→21:28)
[2017-06-05] MEDS: PIPERACILLIN SODIUM/TAZOBACTAM 3.375 GM in DEXTROSE 5% IN WATER 50 ML IV SCH (18:53)
[2017-06-05] MEDS ORDERED: NITROGLYCERIN 1 GM OINT.TOP TD ONE (19:29)
[2017-06-05] MEDS ORDERED: ENOXAPARIN 100 MG/ML SYRINGE SQ ONE (19:30)
[2017-06-05] MEDS ORDERED: VANCOMYCIN 1,500 MG in 0.9 % SODIUM CHLORIDE 500 ML IV ONE (20:30)
[2017-06-05] MEDS ORDERED: VANCOMYCIN 500 MG VIAL ONE (20:34)
[2017-06-05] MEDS: NACL 0.9% W/KCL 20MEQ 1,000 ML IV SCH (21:17)
[2017-06-05] MEDS: CLOPIDOGREL 75 MG TABLET PO SCH (21:18)
[2017-06-05] MEDS: GABAPENTIN 100 MG CAPSULE PO SCH (21:18)
[2017-06-05] MEDS: ACETAMINOPHEN 325 MG TABLET PO PRN (22:37)
[2017-06-05] MEDS ORDERED: PIPERACILLIN SODIUM/TAZOBACTAM 3.375 GM VIAL IV ONE (23:52)
[2017-06-06] MEDS: PIPERACILLIN SODIUM/TAZOBACTAM 3.375 GM in DEXTROSE 5% IN WATER 50 ML IV SCH ×4 (00:12→20:06)
[2017-06-06] MEDS: NACL 0.9% W/KCL 20MEQ 1,000 ML IV SCH ×3 (04:25→17:09)
[2017-06-06] MEDS ORDERED: PIPERACILLIN SODIUM/TAZOBACTAM 3.375 GM VIAL IV ONE (04:45)
[2017-06-06 05:14] LABS: Basophils # (Auto) 0 K/mcL (0.0-0.3); Basophils % (Auto) 0.2 % (0.0-2.0); Eosinophils # (Auto) 0.5 K/mcL (0.0-0.7); Eosinophils % (Auto) 4.8 % (0.0-7.0); Granulocytes % (Auto) 77.7 % (38.0-78.0); Lymphocytes % (Auto) 10.7 % (15.5-49.0); Mean Cell Volume 86.8 fL (80.0-100.0); Mean Corpuscular HGB Conc 32.9 g/dL (31.0-36.0); Mean Corpuscular Hemoglobin 28.6 pg (26.0-34.0); Monocytes # (Auto) 0.6 K/mcL (0.1-0.9); Monocytes % (Auto) 6.6 % (1.0-12.0); Platelet Count 122 K/mcL (140-440); RBC 3.39 M/mcL (4.50-5.90)
[2017-06-06 05:27] LABS: ALT/SGPT 13 U/l (0-40); Albumin < 1.0 gm/dL (3.2-5.2); Albumin/Globulin Ratio 0.2 (1.0-2.3); Alkaline Phosphatase < 5 U/L (39-117); Bilirubin,Direct 0.3 mg/dL (0.0-0.3); Blood Urea Nitrogen 43 mg/dl (8-23); Gamma Glutamyl Transpeptidase 20 U/L (8-61); Magnesium 2.2 mg/dL (1.6-2.5); Uric Acid 9.3 mg/dL (2.5-8.0)
[2017-06-06] MEDS ORDERED: VANCOMYCIN PER PHARMACY IV SCH (07:15)
[2017-06-06] MEDS: LEVOTHYROXINE 50 MCG TABLET PO SCH (07:30)
[2017-06-06] MEDS: INSULIN LISPRO 1 UNIT/0.01 ML UNIT SQ SCH ×4 (09:50→20:21)
[2017-06-06] MEDS: ASPIRIN 81 MG TAB.CHEW PO SCH (09:51)
[2017-06-06] MEDS: sitaGLIPtin 50 MG TABLET PO SCH (09:51)
[2017-06-06] MEDS: TAMSULOSIN 0.4 MG CAPSULE PO SCH (09:51)
[2017-06-06] MEDS: FERROUS SULFATE 325 MG TABLET PO SCH (09:51)
[2017-06-06] MEDS: HEPARIN 5,000 UNIT/ML VIAL SQ SCH ×2 (09:51→20:21)
[2017-06-06] MEDS: MULTIVIT,THER IRON,CA,FA & MIN 1 TABLET PO SCH (09:51)
[2017-06-06] MEDS: VITAMIN D3 1,000 UNIT TABLET PO SCH (09:52)
[2017-06-06] MEDS: GABAPENTIN 100 MG CAPSULE PO SCH ×2 (09:52→20:20)
[2017-06-06] MEDS: FINASTERIDE 5 MG TABLET PO SCH (09:52)
[2017-06-06] MEDS: INSULIN GLARGINE, HUMAN 1 UNIT/0.01 ML SQ SCH (09:52)
[2017-06-06] MEDS: GENTAMICIN SULFATE 40 MG, CLINDAMYCIN 300 MG, BACITRACIN 25,000 UNIT in SODIUM CHLORIDE... IRR SCH ×3 (09:53→21:05)
--- NOTE | 2017-06-06 13:03 | General Surgery Progress Note ---
Subjective Narrative: Note initiated : 06/06/17 at 1:00 pm Service Date, if different from initiated Date: [] Patient: Doni Ramirez 77 y/o M admitted on 06/05/17 for altered mental. Chief Complaint: [] Patient seen in ICU 120 / D Progress reviewed with Kaylee MUNOZ and Dr. Ramos Hospitalist . Objective Temp Pulse Resp BP Pulse Ox 99.1 F H 65 22 147/65 99 06/06/17 12:20 06/05/17 20:05 06/06/17 12:20 06/06/17 12:20 06/06/17 12:29 T max 99.1 F, Bradycardia, O2 sat 92 % BP Stable , Clear urine Dressings Right BKA stump and left foot and leg are CDI. Wound care and dressings per scheduled protocol. Labs checked: Leucocytosis improving , Cr 2.2 , Elevated troponin ( Monitored ) - Additional Data Intake & Output - Last 24 hours: Intake & Output 06/04/17 06/05/17 06/06/17 06/07/17 05:59 05:59 05:59 05:59 Intake Total 1510 / 2610 Output Total 250 / 250 Balance 1260 / 2360 Weight 198 lb 3.2 oz - Labs 06/06/17 04:00 06/06/17 04:00 Diabetes panel 06/06/17 Range/Units 04:00 Sodium 135 (133-145) mmol/L Potassium 4.3 (3.3-5.1) mmol/L Chloride 101 (96-108) mmol/L Carbon Dioxide 18 L (22-30) mmol/L BUN 43 H (8-23) mg/dl Creatinine 2.2 H (0.7-1.2) mg/dl Glucose 375 H (70-105) mg/dL Calcium 8.1 L (8.6-10.4) mg/dl AST 17 (0-37) U/l ALT 13 (0-40) U/l Alkaline Phosphatase < 5 L (39-117) U/L Total Protein 5.9 (5.9-8.4) gm/dL Albumin < 1.0 L (3.2-5.2) gm/dL Triglycerides 79 (<150) mg/dl Calcium panel 06/06/17 Range/Units 04:00 Calcium 8.1 L (8.6-10.4) mg/dl Phosphorus 3.3 (2.7-4.5) mg/dL Albumin < 1.0 L (3.2-5.2) gm/dL Pituitary panel 06/06/17 Range/Units 04:00 Sodium 135 (133-145) mmol/L Potassium 4.3 (3.3-5.1) mmol/L Chloride 101 (96-108) mmol/L Carbon Dioxide 18 L (22-30) mmol/L BUN 43 H (8-23) mg/dl Creatinine 2.2 H (0.7-1.2) mg/dl Glucose 375 H (70-105) mg/dL Calcium 8.1 L (8.6-10.4) mg/dl Adrenal panel 06/06/17 Range/Units 04:00 Sodium 135 (133-145) mmol/L Potassium 4.3 (3.3-5.1) mmol/L Chloride 101 (96-108) mmol/L Carbon Dioxide 18 L (22-30) mmol/L BUN 43 H (8-23) mg/dl Creatinine 2.2 H (0.7-1.2) mg/dl Glucose 375 H (70-105) mg/dL Calcium 8.1 L (8.6-10.4) mg/dl Total Bilirubin 0.9 (0.0-1.0) mg/dL AST 17 (0-37) U/l ALT 13 (0-40) U/l Alkaline Phosphatase < 5 L (39-117) U/L Total Protein 5.9 (5.9-8.4) gm/dL Albumin < 1.0 L (3.2-5.2) gm/dL Assessment and Plan (1) SIRS (systemic inflammatory response syndrome) Problem details: SIRS, OPEN wounds Left foot DM Velazquez 2 TMA stump and dorsal surfqce of left foot and ulcer up to sub cuatneous adipoe tissue anterior lower leg . CELLULITIS foot and leg Status: Acute Current Visit: Yes - Time Spent With Patient Total time spent is greater than 50% in coordination of care (as documented) at patient's floor/unit and/or counseling patient: Assessment: Patient is stable from wound care point of view. Plan: Continue with current antibiotics and local wound care. f 15 - 24 minutes
--- NOTE | 2017-06-06 13:24 | Internal Med Progress Note ---
Medical - PN: Subj Patient information: Note initiated : 06/06/17 at 1:24 pm Patient: Doni Ramirez 77 y/o M admitted on 06/05/17 for altered mental. Interval history: June 05, 2017: History of present illness: Mr. Ramirez is a 77 year old with a history of type 2 diabetes, hypertension, chronic kidney disease, peripheral vascular disease, coronary disease who was treated recently for cellulitis. He also had a laparoscopic cholecystectomy in March. He has a chronic right knee ulcer as well as a left foot plantar neuropathic ulcer. He is generally followed at wound care. Today, his brother had him brought to the emergency room, for increasing confusion and high fever. ER evaluation showed leukocytosis, confusion, fever, consistent with SIRS syndrome. Patient is now admitted for further evaluation and treatment. By the time I got to see the patient, his brother had unfortunately gone home. The patient remains fairly lethargic and unable to answer most questions. On arrival, he was complaining of left-sided chest discomfort, which she could not really describe very well. He was given 2 sublingual nitroglycerin, after which he said the pain resolved. He is unable otherwise to tell me if he has recently had fever or chills, cough , chest pain or palpitations, shortness of breath, GI or symptoms. While he was in the emergency room he was noted to have lots of ectopy on his heart monitor. June 06: This morning, the patient is much more awake and alert. He says he is feeling much better. His brother is in the room with him, and says he seems almost back to normal. The brother tells me that at home the patient was running a fever, had poor appetite, and became quite confused yesterday. He tells me that they have been fighting ulcers on his right knee as well as his left foot for several months. The right knee ulcer is being managed by plastic surgery, and is now casted with a compression dressing. The brother says that has been looking really good lately. The left foot, has an ulcer of the foot stump, at the site of the previous amputation. This ulcer has had more drainage and redness lately. There is also a shallow ulcer on the foot dorsum as well as a shallow ulcer on the craig, which have been clean, but also not healing. The patient's brother states that the patient uses this left foot to bear all of his weight to stand and pivot, to help him with transfers. He agrees that this is probably preventing healing. The brother acts as the full-time caregiver. Today, the patient is awake and alert. He says he is feeling much better, and is hungry. He denies headaches or dizziness, sore throat or cough, chest pain or palpitations, shortness of breath, GI or symptoms. - Constitutional Vitals: Vital Signs Temp Pulse Resp BP Pulse Ox 99.1 F H 65 22 147/65 99 06/06/17 12:20 06/05/17 20:05 06/06/17 12:20 06/06/17 12:20 06/06/17 12:29 Period Temp Pulse Resp BP Sys/Idxon Pulse Ox Last 24 Hr 98.7 F-100.3 F 52-71 20-22 111-152/44-96 93-100 Intake and Output 06/05/17 06/06/17 06/06/17 21:59 05:59 13:59 Intake Total 1510 / 1510 Output Total 250 / 250 Balance 1260 / 1260 Weight 198 lb 3.2 oz Intake & Output: Intake & Output 06/05/17 06/06/17 06/06/17 21:59 05:59 13:59 Intake Total 1510 / 1510 Output Total 250 / 250 Balance 1260 / 1260 Weight 198 lb 3.2 oz Intake: IV 1510 / 1510 Vancomycin 1,500 mg In 500 / 500 Sodium Chloride 0.9% 500 ml @ 333.3 mls/hr IV ONCE ONE Rx#:[id number] Output: Urine Catheter Amount 250 / 250 The patient is sitting up in bed, eating breakfast. T-max last night was 100.8. Current temperature is 97.8. Heart rate dips down into the 30s during sleep, and tends to run in the 50s while awake. He does not appear to have symptoms related to this. Respiratory rate is 20. Blood pressure 156/80. O2 saturation is 100% on 1.5 L O2. On exam, neck shows no obvious lymphadenopathy or JVD. Cardiac exam shows regular rate and rhythm. Lungs appear clear to auscultation. Abdomen: Is soft and nontender without obvious masses. 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 It has a soft cast in place. Left leg, is undressed. There is a large ulcer at the site of the previous metatarsal amputation. There is yellowish white tissue noted in the wound. There is no obvious drainage. The distal foot is somewhat pink. There is a second ulcer on the left foot dorsum, which is shallow, and appears clean and dry. There is a third ulcer on the left craig, which is also fairly shallow, clean and dry. Neurologic: The patient is awake and alert. He answers questions appropriately , but does not appear quite as engaged as he should be. His brother does most of the talking. Medical - PN: Obj Da - Labs CBC & Chem 7: 06/06/17 04:00 06/06/17 04:00 Labs: Abnormal Lab Results 06/06/17 06/06/17 06/06/17 04:00 04:00 04:00 RBC 3.39 L Hgb 9.7 L Hct 29.4 L RDW 18.0 H Plt Count 122 L Lymph % (Auto) 10.7 L Lymph # (Auto) 1.0 L Carbon Dioxide 18 L BUN 43 H Creatinine 2.2 H Glucose 375 H Uric Acid 9.3 H Calcium 8.1 L Alkaline Phosphatase < 5 L Troponin T 0.10 H* Albumin < 1.0 L Globulin 4.9 H Albumin/Globulin Ratio 0.2 L 06/05/17 17:33 RBC Hgb Hct RDW Plt Count Lymph % (Auto) Lymph # (Auto) Carbon Dioxide BUN Creatinine Glucose Uric Acid Calcium Alkaline Phosphatase Troponin T 0.07 H* Albumin Globulin Albumin/Globulin Ratio June 06: Blood cultures are negative so far. June 05: CBC: White blood cell count 14,900, hemoglobin 11, hematocrit 33.8, RDW 17, absolute granulocyte count 13,400, lymphocyte count 600 Venous blood gas: PH 7.45 CO2 25, PO2 122, lactic acid normal at 2.0 Chemistry panel: Bicarb is low at 18, anion gap elevated at 20, BUN 41, creatinine 1.8, glucose 355, ionized calcium low at 1.15 Troponin is elevated at 0.05 Urinalysis: Shows greater than 500 mg of protein, greater than 500 glucose, negative nitrites and negative leukocyte esterase. Chest x-ray shows mild cardiomegaly. CHF seen on June 03, shows near complete resolution. Next EKG: Is probable atrial fibrillation at a rate of 72, left axis deviation, probable old anteroseptal MN, PVCs noted, no significant ST-T changes when compared to his last EKG from March 30, 2017. Frequent ventricular ectopy was noted on arrival to the emergency room. Meds: Medications Acetaminophen (Tylenol) 650 mg PO Q6HP PRN PRN Reason: PAIN/FEVER > 101 Last Admin: 06/05/17 22:37 Dose: 650 mg Albuterol Sulfate (Ventolin) 2.5 mg NEB Q4HRT PRN PRN Reason: Shortness Of Breath Or Wheezing Aspirin (Aspirin) 81 mg PO DAILY [facility] Last Admin: 06/06/17 09:51 Dose: 81 mg Clopidogrel Bisulfate (Plavix) 75 mg PO QHS [facility] Last Admin: 06/05/17 21:18 Dose: Not Given Dextrose (Dextrose 50%) 0 ml IV UD PRN PRN Reason: Hypoglycemia Diagnostic Test (Pha) (Accu-Chek) 1 each FS ACHS [facility] Last Admin: 06/06/17 08:38 Dose: 1 each Docusate Sodium (Colace) 100 mg PO BID PRN PRN Reason: Constipation Ferrous Sulfate (Ferrous Sulfate) 325 mg PO [facility] Last Admin: 06/06/17 09:51 Dose: 325 mg Finasteride (Proscar) 5 mg PO QDAY [facility] Last Admin: 06/06/17 09:52 Dose: 5 mg Gabapentin (Neurontin) 100 mg PO BID [facility] Last Admin: 06/06/17 09:52 Dose: 100 mg Glucose (Insta-Glucose) 15 gm PO PRN PRN PRN Reason: Hypoglycemia Heparin Sodium (Porcine) (Heparin) 5,000 unit SQ Q12 [facility] Last Admin: 06/06/17 09:51 Dose: 5,000 unit Gentamicin Sulfate 40 mg/Clindamycin Phosphate 300 mg/Bacitracin 25,000 unit/ Sodium Chloride 503 mls @ 500 mls/hr IRR TID [facility] Last Admin: 06/06/17 09:53 Dose: 500 mls/hr Piperacillin Sod/Tazobactam (Sod 3.375 gm/ Dextrose) 50 mls @ 100 mls/hr IV Q6H [facility] Last Admin: 06/06/17 05:14 Dose: Not Given Potassium Chloride/Sodium Chloride (Nacl 0.9% W/Kcl 20meq 1000ml) 1,000 mls @ 100 mls/hr IV .Q10H [facility] Last Admin: 06/06/17 06:14 Dose: Not Given Insulin Glargine (Lantus) 35 unit SQ QDAY [facility] Last Admin: 06/06/17 09:52 Dose: 35 unit Insulin Human Lispro (Humalog) 0 unit SQ ACHS [facility] PRN Reason: Protocol Last Admin: 06/06/17 09:50 Dose: 8 unit Iron Carb/Multivit/[place]/Folic Acid (Multivitamin W/Minerals) 1 tab PO DAILY [facility] Last Admin: 06/06/17 09:51 Dose: 1 tab Levothyroxine Sodium (Synthroid) 50 mcg PO QAMAC [facility] Last Admin: 06/06/17 07:30 Dose: 50 mcg Magnesium Hydroxide (Milk Of Magnesia) 30 ml PO DAILYP PRN PRN Reason: Constipation Morphine Sulfate (Morphine) 2 mg IV Q1HP PRN PRN Reason: Pain Naloxone HCl (Narcan) 0.1 mg IV Q2MIN PRN PRN Reason: Opiate Reversal Nitroglycerin (Nitrostat) 0.4 mg SL Q5MIN PRN PRN Reason: chest pain Last Admin: 06/05/17 17:30 Dose: 0.4 mg Ondansetron HCl (Zofran) 4 mg IV Q4HP PRN PRN Reason: Nausea And Vomiting Last Admin: 06/06/17 06:14 Dose: 4 mg Sitagliptin Phosphate (Januvia) 50 mg PO DAILY [facility] Last Admin: 06/06/17 09:51 Dose: 50 mg Tamsulosin HCl (Flomax) 0.4 mg PO QDAY [facility] Last Admin: 06/06/17 09:51 Dose: 0.4 mg Vancomycin HCl (Vancomycin Per Pharmacy) 1 order IV UD [facility] Vitamin D (Vitamin D3) 1,000 unit PO DAILY [facility] Last Admin: 06/06/17 09:52 Dose: 1,000 unit Medical - PN: A/P - Time Spent With Patient Total time spent is greater than 50% in coordination of care (as documented) at patient's floor/unit and/or counseling patient: Greater than 35 minutes - Narrative A/P Narrative: #1. Infectious disease. Patient presents with signs and symptoms of SIRS syndrome, presumably due to ongoing left diabetic foot infection. He also presents with medical delirium. -Clinically he is markedly improved today. Confusion seems to be mostly cleared. Fever is decreasing. -Continue IV Zosyn and vancomycin. - of wound care is following as well. We are to continue with local wound care, until he decides about debridement, although patient may need further amputation. Infection is likely due to ongoing wounds of both lower extremities, complicated by peripheral vascular disease and diabetes. 2. Neurologic. Medical delirium is clearing. 3. Endocrine. History of type 2 diabetes. Patient presents with hyperglycemia. -IV fluids. Accu-Cheks continue to run rather high, ranging from 225-88. Increase sliding scale. Continue Lantus and Januvia. -hypothyroidism. Continue levothyroxine. 4. Cardiac. History of coronary artery disease. Probable recent CHF. -Coronary artery disease. Patient has chest pain on arrival. This resolved after 2 sublingual nitroglycerin. Believe he has a history of intermittent angina at home. Second and third troponin did trend upwards, but again is unclear how to interpret this in the setting of his renal failure. I have added nitroglycerin paste, and 1 loading dose of Lovenox. He will continue with aspirin and Plavix. He is not currently on a beta-ilia, apparently had some difficulties with bradycardia in the past. He does not appear to be having any more angina today. I reviewed with the patient and with his brother that he may have had a small cardiac events, or unstable angina, last night. Clinically he appears stable today. The brother does say though, that if the patient becomes unstable from a cardiac standpoint , that they would still want him to be transferred somewhere where arnp could do any procedures that might be necessary to keep him going. He says they are really not at the point of wanting to withdraw care in any way. -We discussed that with his bradycardia, he will likely need a pacemaker, to allow us to reinstitute a beta-ilia, to give him further cardiac protection. -Continue to monitor heart rhythm tonight. If he has further cardiac symptoms, I will need to call another hospital for a cardiac consult. EKG does not appear to show acute changes. -Hypertension. Continue aspirin. Resume Lasix once blood pressure is stable and renal function is to baseline. 5. Vascular. Known vascular disease, likely contributing to poor wound healing. Continue Plavix and aspirin. 6. Renal. History of stage III kidney disease, followed by Dr. Brown. Creatinine is slightly elevated over his baseline. Also previous history of hyperkalemia. -IV fluids. Continue to monitor. -Patient also has secondary hyperparathyroidism. 7. . History of urine retention. Also history of UTI. check post void residuals, and/or place a Colvin catheter. 8. DVT prophylaxis: Continue aspirin and Plavix. Consider adding low-dose heparin until more mobile. 9. CODE STATUS: The patient's brother apparently signed a post form asking for DNR today. 10. GI. Status post recent laparoscopic cholecystectomy March 29, 2017. Medical - PN: Qual - VTE Deep Vein Thrombosis/Pulmonary Embolism Present on Admission: No
[2017-06-06] MEDS: CLOPIDOGREL 75 MG TABLET PO SCH (20:20)
[2017-06-06] MEDS ORDERED: VANCOMYCIN 500 MG VIAL ONE (20:51)
[2017-06-06] MEDS ORDERED: VANCOMYCIN 1,000 MG in 0.9 % SODIUM CHLORIDE 250 ML IV ONE (21:00)
[2017-06-07] MEDS: PIPERACILLIN SODIUM/TAZOBACTAM 3.375 GM in DEXTROSE 5% IN WATER 50 ML IV SCH ×3 (00:03→12:08)
[2017-06-07] MEDS: NACL 0.9% W/KCL 20MEQ 1,000 ML IV SCH ×4 (04:20→16:39)
[2017-06-07 05:36] LABS: Basophils # (Auto) 0 K/mcL (0.0-0.3); Basophils % (Auto) 0.3 % (0.0-2.0); Eosinophils # (Auto) 0.5 K/mcL (0.0-0.7); Eosinophils % (Auto) 6.3 % (0.0-7.0); Granulocytes % (Auto) 69.2 % (38.0-78.0); Lymphocytes # (Auto) 1.2 K/mcL (1.5-4.8); Lymphocytes % (Auto) 16.9 % (15.5-49.0); Mean Cell Volume 87.9 fL (80.0-100.0); Mean Corpuscular HGB Conc 32.3 g/dL (31.0-36.0); Mean Corpuscular Hemoglobin 28.4 pg (26.0-34.0); Monocytes # (Auto) 0.5 K/mcL (0.1-0.9); Monocytes % (Auto) 7.3 % (1.0-12.0); Platelet Count 124 K/mcL (140-440); RBC 3.37 M/mcL (4.50-5.90); Red Cell Distribution Width 18.3 % (11.5-14.5)
[2017-06-07 06:01] LABS: ALT/SGPT 42 U/l (0-40); Albumin 2.8 gm/dL (3.2-5.2); Albumin/Globulin Ratio 0.9 (1.0-2.3); Alkaline Phosphatase 49 U/L (39-117); Bilirubin,Direct 0.2 mg/dL (0.0-0.3); Blood Urea Nitrogen 55 mg/dl (8-23); Gamma Glutamyl Transpeptidase 18 U/L (8-61); Magnesium 2.3 mg/dL (1.6-2.5)
[2017-06-07] MEDS: INSULIN LISPRO 1 UNIT/0.01 ML UNIT SQ SCH ×4 (08:22→21:15)
[2017-06-07] MEDS: LEVOTHYROXINE 50 MCG TABLET PO SCH (08:23)
[2017-06-07] MEDS: ASPIRIN 81 MG TAB.CHEW PO SCH (09:54)
[2017-06-07] MEDS: GABAPENTIN 100 MG CAPSULE PO SCH ×2 (09:54→21:14)
[2017-06-07] MEDS: FINASTERIDE 5 MG TABLET PO SCH (09:54)
[2017-06-07] MEDS: FERROUS SULFATE 325 MG TABLET PO SCH (09:54)
[2017-06-07] MEDS: TAMSULOSIN 0.4 MG CAPSULE PO SCH (09:54)
[2017-06-07] MEDS: VITAMIN D3 1,000 UNIT TABLET PO SCH (09:54)
[2017-06-07] MEDS: sitaGLIPtin 50 MG TABLET PO SCH (09:54)
[2017-06-07] MEDS: HEPARIN 5,000 UNIT/ML VIAL SQ SCH ×2 (09:55→21:14)
[2017-06-07] MEDS: MULTIVIT,THER IRON,CA,FA & MIN 1 TABLET PO SCH (09:55)
[2017-06-07] MEDS: INSULIN GLARGINE, HUMAN 1 UNIT/0.01 ML SQ SCH (09:55)
[2017-06-07] MEDS: GENTAMICIN SULFATE 40 MG, CLINDAMYCIN 300 MG, BACITRACIN 25,000 UNIT in SODIUM CHLORIDE... IRR SCH ×3 (10:00→21:20)
--- NOTE | 2017-06-07 11:59 | Internal Med Progress Note ---
Medical - PN: Subj Patient information: Note initiated : 06/07/17 at 11:58 am Patient: Doni Ramirez 77 y/o M admitted on 06/05/17 for altered mental. Interval history: June 05, 2017: History of present illness: Mr. Ramirez is a 77 year old with a history of type 2 diabetes, hypertension, chronic kidney disease, peripheral vascular disease, coronary disease who was treated recently for cellulitis. He also had a laparoscopic cholecystectomy in March. He has a chronic right knee ulcer as well as a left foot plantar neuropathic ulcer. He is generally followed at wound care. Today, his brother had him brought to the emergency room, for increasing confusion and high fever. ER evaluation showed leukocytosis, confusion, fever, consistent with SIRS syndrome. Patient is now admitted for further evaluation and treatment. By the time I got to see the patient, his brother had unfortunately gone home. The patient remains fairly lethargic and unable to answer most questions. On arrival, he was complaining of left-sided chest discomfort, which she could not really describe very well. He was given 2 sublingual nitroglycerin, after which he said the pain resolved. He is unable otherwise to tell me if he has recently had fever or chills, cough , chest pain or palpitations, shortness of breath, GI or symptoms. While he was in the emergency room he was noted to have lots of ectopy on his heart monitor. June 06: This morning, the patient is much more awake and alert. He says he is feeling much better. His brother is in the room with him, and says he seems almost back to normal. The brother tells me that at home the patient was running a fever, had poor appetite, and became quite confused yesterday. He tells me that they have been fighting ulcers on his right knee as well as his left foot for several months. The right knee ulcer is being managed by plastic surgery, and is now casted with a compression dressing. The brother says that has been looking really good lately. The left foot, has an ulcer of the foot stump, at the site of the previous amputation. This ulcer has had more drainage and redness lately. There is also a shallow ulcer on the foot dorsum as well as a shallow ulcer on the craig, which have been clean, but also not healing. The patient's brother states that the patient uses this left foot to bear all of his weight to stand and pivot, to help him with transfers. He agrees that this is probably preventing healing. The brother acts as the full-time caregiver. Today, the patient is awake and alert. He says he is feeling much better, and is hungry. He denies headaches or dizziness, sore throat or cough, chest pain or palpitations, shortness of breath, GI or symptoms. June 07: Today, the patient says he is feeling quite well. He denies significant pain in his foot. He has not had any further chest pain. He otherwise denies fever chills, chest pain or cough, palpitations, abdominal pain, nausea or vomiting, diarrhea or constipation. He still has his Colvin catheter in place, and says he would like to keep that in place, so he does not have to get in and out of bed so often, regarding his foot ulcer. - Constitutional Vitals: Vital Signs Temp Pulse Resp BP Pulse Ox 97.5 F 42 L 20 132/84 100 06/07/17 08:00 06/07/17 04:00 06/07/17 08:00 06/07/17 08:00 06/07/17 09:07 Period Temp Pulse Resp BP Sys/Dixon Pulse Ox Last 24 Hr 96.3 F-99.1 F 42-52 17-22 132-156/65-84 95-100 Intake and Output 06/06/17 06/07/17 06/07/17 21:59 05:59 13:59 Intake Total 1640 / 1640 1200 / 1200 280 / 280 Output Total 175 / 175 300 / 300 Balance 1465 / 1465 900 / 900 280 / 280 Weight 204 lb 204 lb Patient Weight 06/08/17 05:59 Weight 204 lb Intake & Output: Intake & Output 06/06/17 06/07/17 06/07/17 21:59 05:59 13:59 Intake Total 1640 / 1640 1200 / 1200 280 / 280 Output Total 175 / 175 300 / 300 Balance 1465 / 1465 900 / 900 280 / 280 Weight 204 lb 204 lb Intake: IV 1100 / 1100 1050 / 1050 NaCl 0.9% W/KCl 20Meq 1000 / 1000 1000 / 1000 1000ML 1,000 ml @ 100 mls /hr IV .Q10H [facility] Rx#: [id number] Zosyn 3.375 gm In 100 / 100 50 / 50 Dextrose 5% in Water 50 ml @ 100 mls/hr IV Q6H [facility] Rx#:[id number] Oral 540 / 540 150 / 150 280 / 280 Output: Urine Catheter Amount 175 / 175 300 / 300 Other: Meal Breakfast Percent of Meal Consumed 100% Feeding Ability Independent Respiratory rate ranges from 20-28. Blood pressure 145/77. O2 saturation 97% on 2 L. During sleep, cut patient continues to drop his heart rate into the 30s. A 1.99 second pause was noted on telemetry last night. Intake and output show that he is about 5 L ahead on fluids. He is awake and alert, and quite pleasant. Neck is supple without obvious lymphadenopathy or JVD. Cardiac exam shows regular rate and rhythm. Lungs are essentially clear to auscultation. Abdomen: Is soft and nontender. Extremities: Right lower extremity remains casted. Distal stump looks fine. Left foot was just re-bandaged by the nurse. Dressing is clean and dry. No significant erythema is noted today. Neurologic: Patient is alert and appears more oriented and more engaged today. Motor exam is grossly nonfocal. Medical - PN: Obj Da - Labs CBC & Chem 7: 06/07/17 04:00 06/07/17 04:00 Labs: Abnormal Lab Results 06/07/17 06/07/17 06/06/17 04:00 04:00 13:55 RBC 3.37 L Hgb 9.6 L Hct 29.6 L RDW 18.3 H Plt Count 124 L Lymph % (Auto) Lymph # (Auto) 1.2 L Carbon Dioxide 20 L BUN 55 H Creatinine 3.3 H Glucose 124 H Uric Acid 9.0 H Calcium 8.2 L ALT 42 H Alkaline Phosphatase Troponin T Albumin 2.8 L Globulin Albumin/Globulin Ratio 0.9 L Random Vancomycin 11.0 H 06/06/17 06/06/17 06/06/17 04:00 04:00 04:00 RBC 3.39 L Hgb 9.7 L Hct 29.4 L RDW 18.0 H Plt Count 122 L Lymph % (Auto) 10.7 L Lymph # (Auto) 1.0 L Carbon Dioxide 18 L BUN 43 H Creatinine 2.2 H Glucose 375 H Uric Acid 9.3 H Calcium 8.1 L ALT Alkaline Phosphatase < 5 L Troponin T 0.10 H* Albumin < 1.0 L Globulin 4.9 H Albumin/Globulin Ratio 0.2 L Random Vancomycin 06/05/17 17:33 RBC Hgb Hct RDW Plt Count Lymph % (Auto) Lymph # (Auto) Carbon Dioxide BUN Creatinine Glucose Uric Acid Calcium ALT Alkaline Phosphatase Troponin T 0.07 H* Albumin Globulin Albumin/Globulin Ratio Random Vancomycin June 07: Left foot wound Gram stain: Shows a few polys, no organisms. June 06: Blood cultures are negative so far. June 05: CBC: White blood cell count 14,900, hemoglobin 11, hematocrit 33.8, RDW 17, absolute granulocyte count 13,400, lymphocyte count 600 Venous blood gas: PH 7.45 CO2 25, PO2 122, lactic acid normal at 2.0 Chemistry panel: Bicarb is low at 18, anion gap elevated at 20, BUN 41, creatinine 1.8, glucose 355, ionized calcium low at 1.15 Troponin is elevated at 0.05, 0.07, 0.10 Urinalysis: Shows greater than 500 mg of protein, greater than 500 glucose, negative nitrites and negative leukocyte esterase. Chest x-ray shows mild cardiomegaly. CHF seen on June 03, shows near complete resolution. EKG: Is probable atrial fibrillation at a rate of 72, left axis deviation, probable old anteroseptal AK, PVCs noted, no significant ST-T changes when compared to his last EKG from March 30, 2017. Frequent ventricular ectopy was noted on arrival to the emergency room. Meds: Medications Acetaminophen (Tylenol) 650 mg PO Q6HP PRN PRN Reason: PAIN/FEVER > 101 Last Admin: 06/05/17 22:37 Dose: 650 mg Hydrocodone Bitart/Acetaminophen ([place] 5/325mg) 1 tab PO Q4HP PRN PRN Reason: Pain Albuterol Sulfate (Ventolin) 2.5 mg NEB Q4HRT PRN PRN Reason: Shortness Of Breath Or Wheezing Aspirin (Aspirin) 81 mg PO DAILY [facility] Last Admin: 06/07/17 09:54 Dose: 81 mg Clopidogrel Bisulfate (Plavix) 75 mg PO QHS [facility] Last Admin: 06/06/17 20:20 Dose: 75 mg Dextrose (Dextrose 50%) 0 ml IV UD PRN PRN Reason: Hypoglycemia Diagnostic Test (Pha) (Accu-Chek) 1 each FS ACHS [facility] Last Admin: 06/07/17 08:22 Dose: 1 each Docusate Sodium (Colace) 100 mg PO BID PRN PRN Reason: Constipation Ferrous Sulfate (Ferrous Sulfate) 325 mg PO QAMCC [facility] Last Admin: 06/07/17 09:54 Dose: 325 mg Finasteride (Proscar) 5 mg PO QDAY [facility] Last Admin: 06/07/17 09:54 Dose: 5 mg Furosemide (Lasix) 40 mg PO BID [facility] Gabapentin (Neurontin) 100 mg PO BID [facility] Last Admin: 06/07/17 09:54 Dose: 100 mg Glucose (Insta-Glucose) 15 gm PO PRN PRN PRN Reason: Hypoglycemia Heparin Sodium (Porcine) (Heparin) 5,000 unit SQ Q12 [facility] Last Admin: 06/07/17 09:55 Dose: 5,000 unit Gentamicin Sulfate 40 mg/Clindamycin Phosphate 300 mg/Bacitracin 25,000 unit/ Sodium Chloride 503 mls @ 500 mls/hr IRR TID [facility] Last Admin: 06/06/17 21:05 Dose: 500 mls/hr Piperacillin Sod/Tazobactam (Sod 3.375 gm/ Dextrose) 50 mls @ 100 mls/hr IV Q6H [facility] Last Admin: 06/07/17 05:10 Dose: 100 mls/hr Potassium Chloride/Sodium Chloride (Nacl 0.9% W/Kcl 20meq 1000ml) 1,000 mls @ 100 mls/hr IV .Q10H [facility] Last Admin: 06/07/17 04:20 Dose: 100 mls/hr Insulin Glargine (Lantus) 35 unit SQ QDAY [facility] Last Admin: 06/07/17 09:55 Dose: 35 unit Insulin Human Lispro (Humalog) 0 unit SQ [facility] PRN Reason: Protocol Last Admin: 06/07/17 08:22 Dose: Not Given Iron Carb/Multivit/Leshara/Folic Acid (Multivitamin W/Minerals) 1 tab PO DAILY [facility] Last Admin: 06/07/17 09:55 Dose: 1 tab Levothyroxine Sodium (Synthroid) 50 mcg PO QAMAC [facility] Last Admin: 06/07/17 08:23 Dose: 50 mcg Magnesium Hydroxide (Milk Of Magnesia) 30 ml PO DAILYP PRN PRN Reason: Constipation Morphine Sulfate (Morphine) 2 mg IV Q1HP PRN PRN Reason: Pain Naloxone HCl (Narcan) 0.1 mg IV Q2MIN PRN PRN Reason: Opiate Reversal Nitroglycerin (Nitrostat) 0.4 mg SL Q5MIN PRN PRN Reason: chest pain Last Admin: 06/05/17 17:30 Dose: 0.4 mg Ondansetron HCl (Zofran) 4 mg IV Q4HP PRN PRN Reason: Nausea And Vomiting Last Admin: 06/06/17 06:14 Dose: 4 mg Pantoprazole Sodium (Protonix) 40 mg PO ACB [facility] Sitagliptin Phosphate (Januvia) 50 mg PO DAILY [facility] Last Admin: 06/07/17 09:54 Dose: 50 mg Tamsulosin HCl (Flomax) 0.4 mg PO QDAY [facility] Last Admin: 06/07/17 09:54 Dose: 0.4 mg Vancomycin HCl (Vancomycin Per Pharmacy) 1 order IV UD [facility] Vitamin D (Vitamin D3) 1,000 unit PO DAILY [facility] Last Admin: 06/07/17 09:54 Dose: 1,000 unit Medical - PN: A/P - Time Spent With Patient Total time spent is greater than 50% in coordination of care (as documented) at patient's floor/unit and/or counseling patient: 25 - 35 minutes - Narrative A/P Narrative: #1. Infectious disease. Patient presents with signs and symptoms of SIRS syndrome, presumably due to ongoing left diabetic foot infection. He also presents with medical delirium. -Clinically he is markedly improved today. Confusion seems to be mostly cleared. Fever resolved. -Continue IV Zosyn and vancomycin. - of wound care is following as well. We are to continue with local wound care, until he decides about debridement, although patient may need further amputation. Infection is likely due to ongoing wounds of both lower extremities, complicated by peripheral vascular disease and diabetes. 2. Neurologic. Medical delirium is clearing. 3. Endocrine. History of type 2 diabetes. Patient presents with hyperglycemia. -IV fluids. Accu-Cheks continue to run rather high, ranging from 225-88. Increase sliding scale. Continue Lantus and Januvia. -hypothyroidism. Continue levothyroxine. 4. Cardiac. History of coronary artery disease. Probable recent CHF. -Coronary artery disease. Patient had chest pain on arrival. This resolved after 2 sublingual nitroglycerin. Believe he has a history of intermittent angina at home. Second and third troponin did trend upwards, but again is unclear how to interpret this in the setting of his renal failure. . He will continue with aspirin and Plavix. -Consider checking follow-up echocardiogram tomorrow, to see if he has new wall motion abnormalities are significantly depressed ejection fraction. He is not currently on a beta-ilia, apparently had some difficulties with bradycardia in the past. He continues to have bradycardia, particularly during sleep. I will try to touch base with his liner roll changer tomorrow, about whether or not we should go ahead with a pacemaker, so that we could add back a beta-ilia for coronary ischemia issues. (The brother does say that if the patient becomes unstable from a cardiac standpoint, that they would still want him to be transferred somewhere where liner roll changer could do any procedures that might be necessary to keep him going. He says they are really not at the point of wanting to withdraw care in any way. We discussed that with his bradycardia, he will likely need a pacemaker, to allow us to reinstitute a beta-ilia, to give him further cardiac protection.) -Continue to monitor heart rhythm tonight. If he has further cardiac symptoms, I will need to call another hospital for a cardiac consult. -Hypertension. Continue aspirin. Resume Lasix once blood pressure is stable and renal function is to baseline. 5. Vascular. Known vascular disease, likely contributing to poor wound healing. Continue Plavix and aspirin. 6. Renal. History of stage III kidney disease, followed by Dr. Brown. Renal function looks worse again today. He has received quite a bit of fluid resuscitation. I will repeat this in the morning, and if creatinine continues to trend up, ask for nephrology consult. -Patient also has secondary hyperparathyroidism. 7. . History of urine retention. Also history of UTI. Colvin catheter is in place, and patient requests that we leave it in place, so that he does not have to get up and down to urinate. He would like to keep his foot elevated, and I suspect would prefer that he stay nonweightbearing. 8. DVT prophylaxis: Continue aspirin and Plavix. Added low-dose heparin until more mobile. 9. CODE STATUS: The patient's brother apparently signed a polst form asking for DNR . 10. GI. Status post recent laparoscopic cholecystectomy March 29, 2017. Medical - PN: Qual - VTE Deep Vein Thrombosis/Pulmonary Embolism Present on Admission: No
[2017-06-07] MEDS: ACETAMINOPHEN 325 MG TABLET PO PRN (16:14)
[2017-06-07] MEDS: PIPERACILLIN SODIUM/TAZOBACTAM 2.25 GM in DEXTROSE 5% IN WATER 50 ML IV SCH (17:30)
[2017-06-07] MEDS ORDERED: VANCOMYCIN 500 MG in 0.9 % SODIUM CHLORIDE 100 ML IV ONE (21:00)
[2017-06-07] MEDS: CLOPIDOGREL 75 MG TABLET PO SCH (21:14)
[2017-06-07] MEDS: FUROSEMIDE 40 MG TABLET PO SCH (21:18)
[2017-06-08] MEDS: PIPERACILLIN SODIUM/TAZOBACTAM 2.25 GM in DEXTROSE 5% IN WATER 50 ML IV SCH ×5 (00:20→23:39)
[2017-06-08] MEDS: HYDROcodone/APAP 5/325MG TABLET PO PRN ×2 (00:53→15:40)
[2017-06-08 06:57] LABS: Basophils # (Auto) 0 K/mcL (0.0-0.3); Basophils % (Auto) 0.3 % (0.0-2.0); Eosinophils # (Auto) 0.6 K/mcL (0.0-0.7); Granulocytes % (Auto) 67.7 % (38.0-78.0); Lymphocytes # (Auto) 1.2 K/mcL (1.5-4.8); Lymphocytes % (Auto) 15.7 % (15.5-49.0); Mean Cell Volume 86.7 fL (80.0-100.0); Mean Corpuscular HGB Conc 32.9 g/dL (31.0-36.0); Mean Corpuscular Hemoglobin 28.5 pg (26.0-34.0); Monocytes # (Auto) 0.6 K/mcL (0.1-0.9); Monocytes % (Auto) 8.3 % (1.0-12.0); Platelet Count 138 K/mcL (140-440); RBC 3.39 M/mcL (4.50-5.90); Red Cell Distribution Width 17.6 % (11.5-14.5)
[2017-06-08 07:17] LABS: ALT/SGPT 36 U/l (0-40); Alkaline Phosphatase 45 U/L (39-117); Bilirubin,Direct < 0.2 mg/dL (0.0-0.3); Blood Urea Nitrogen 56 mg/dl (8-23); Gamma Glutamyl Transpeptidase 18 U/L (8-61); Magnesium 2.3 mg/dL (1.6-2.5); Uric Acid 8.1 mg/dL (2.5-8.0)
[2017-06-08] MEDS: PANTOPRAZOLE 40 MG TABLET PO SCH (07:20)
[2017-06-08] MEDS: INSULIN LISPRO 1 UNIT/0.01 ML UNIT SQ SCH ×4 (07:34→20:31)
[2017-06-08] MEDS: LEVOTHYROXINE 50 MCG TABLET PO SCH (07:41)
[2017-06-08] MEDS: INSULIN GLARGINE, HUMAN 1 UNIT/0.01 ML SQ SCH (09:37)
[2017-06-08] MEDS: HEPARIN 5,000 UNIT/ML VIAL SQ SCH ×2 (09:37→20:32)
[2017-06-08] MEDS: GABAPENTIN 100 MG CAPSULE PO SCH ×2 (09:38→20:31)
[2017-06-08] MEDS: FINASTERIDE 5 MG TABLET PO SCH (09:38)
[2017-06-08] MEDS: MULTIVIT,THER IRON,CA,FA & MIN 1 TABLET PO SCH (09:38)
[2017-06-08] MEDS: sitaGLIPtin 50 MG TABLET PO SCH (09:43)
[2017-06-08] MEDS: FERROUS SULFATE 325 MG TABLET PO SCH (09:44)
[2017-06-08] MEDS: TAMSULOSIN 0.4 MG CAPSULE PO SCH (09:44)
[2017-06-08] MEDS: VITAMIN D3 1,000 UNIT TABLET PO SCH (09:44)
[2017-06-08] MEDS: ASPIRIN 81 MG TAB.CHEW PO SCH (09:44)
[2017-06-08] MEDS: FUROSEMIDE 40 MG TABLET PO SCH ×2 (09:44→20:31)
[2017-06-08] MEDS: GENTAMICIN SULFATE 40 MG, CLINDAMYCIN 300 MG, BACITRACIN 25,000 UNIT in SODIUM CHLORIDE... IRR SCH ×3 (11:30→21:18)
[2017-06-08] MEDS: COLLAGENASE TOP OINT TUBE 30GM TOPICAL SCH (11:30)
--- NOTE | 2017-06-08 13:17 | General Surgery Progress Note ---
Subjective Patient reports: other (Tired and sleepy at times. No other complaints. Wound dressings done daily. ) Narrative: Note initiated : 06/08/17 at 1:05 pm Service Date, if different from initiated Date: [] Patient: Doni Ramirez 77 y/o M admitted on 06/05/17 for Altered Mental/Left Diabetic Foot Infection. Chief Complaint: [] Objective Temp Pulse Resp BP Pulse Ox 98.0 F 51 L 20 149/51 96 06/08/17 11:25 06/08/17 04:00 06/08/17 11:25 06/08/17 11:25 06/08/17 11:25 No fever VSS. Bradycardia and juanita gain with some SOB but NO orthopnea, Decreased lung sounds at bases. Wounds examined with Isabel MUNOZ. Wound Care In [place]. Right leg dressing CDI with post splint in place. Surgery done by Dr. Lilly at [facility]. LLE. KNEE and upper leg abrasions are CDI. Lower anterior leg and anterior foot pressure and neuropathic ulcers are cover with Adherent black eschar over 30 % of wound bed. Cellulitis Left leg and foot has improved significantly and wound bed and periwound skin and sub q areas is clean and responding well to local wound care and MIST therapy daily. ECHO cardiogram done today. Checked findings with pbx technician. Reviewed with Dr. Cervantes, Hospitalist physician. << EF about 25 % FORMAL report awaited. Lab results: Microbiology MDRO on systemic antibiotics and local wound care. Responding to treatment. LABS : Leucocytosis resolved. Elevated Troponin and increasing creatinine with juanita gain and ECHO findings concerning for Right sided CHF. - Additional Data Intake & Output - Last 24 hours: Intake & Output 06/06/17 06/07/17 06/08/17 06/09/17 05:59 05:59 05:59 05:59 Intake Total 1510 / 2610 2890 / 2890 2130 / 2130 1340 / 1340 Output Total 250 / 250 475 / 475 1025 / 1025 1000 / 1000 Balance 1260 / 2360 2415 / 2415 1105 / 1105 340 / 340 Weight 198 lb 3.2 oz 204 lb 213 lb 7.2 oz - Labs 06/08/17 04:00 06/08/17 04:00 Diabetes panel 06/08/17 Range/Units 04:00 Sodium 135 (133-145) mmol/L Potassium 5.0 (3.3-5.1) mmol/L Chloride 102 (96-108) mmol/L Carbon Dioxide 19 L (22-30) mmol/L BUN 56 H (8-23) mg/dl Creatinine 3.1 H (0.7-1.2) mg/dl Glucose 117 H (70-105) mg/dL Calcium 8.1 L (8.6-10.4) mg/dl AST 25 (0-37) U/l ALT 36 (0-40) U/l Alkaline Phosphatase 45 (39-117) U/L Total Protein 6.0 (5.9-8.4) gm/dL Albumin 3.0 L (3.2-5.2) gm/dL Triglycerides 98 (<150) mg/dl Calcium panel 06/08/17 Range/Units 04:00 Calcium 8.1 L (8.6-10.4) mg/dl Phosphorus 3.2 (2.7-4.5) mg/dL Albumin 3.0 L (3.2-5.2) gm/dL Pituitary panel 06/08/17 Range/Units 04:00 Sodium 135 (133-145) mmol/L Potassium 5.0 (3.3-5.1) mmol/L Chloride 102 (96-108) mmol/L Carbon Dioxide 19 L (22-30) mmol/L BUN 56 H (8-23) mg/dl Creatinine 3.1 H (0.7-1.2) mg/dl Glucose 117 H (70-105) mg/dL Calcium 8.1 L (8.6-10.4) mg/dl Adrenal panel 06/08/17 Range/Units 04:00 Sodium 135 (133-145) mmol/L Potassium 5.0 (3.3-5.1) mmol/L Chloride 102 (96-108) mmol/L Carbon Dioxide 19 L (22-30) mmol/L BUN 56 H (8-23) mg/dl Creatinine 3.1 H (0.7-1.2) mg/dl Glucose 117 H (70-105) mg/dL Calcium 8.1 L (8.6-10.4) mg/dl Total Bilirubin 0.5 (0.0-1.0) mg/dL AST 25 (0-37) U/l ALT 36 (0-40) U/l Alkaline Phosphatase 45 (39-117) U/L Total Protein 6.0 (5.9-8.4) gm/dL Albumin 3.0 L (3.2-5.2) gm/dL Assessment and Plan (1) SIRS (systemic inflammatory response syndrome) Problem details: SIRS, OPEN wounds Left foot DM Velazquez 2 TMA stump and dorsal surfqce of left foot and ulcer up to sub cuatneous adipoe tissue anterior lower leg . CELLULITIS foot and leg Status: Acute Current Visit: Yes - Narrative A/P Narrative: Assessment: Satisfactory progress from wound care point of view. Labs , ECHO findings and weight gain with elevated creatinine concerning for CKD and CHF. Vancomycin dose adjusted by Pharmacy per protocol. PLAN : Will check with Dr. Lilly about wound care and dressing change of right BKA stump site LEFT leg and foot wound care discussed with nursing staff. Orders reviewed and agreed. Continue current treatment. Will follow for wound care services, along with Hospitalist Physician. - Time Spent With Patient Total time spent is greater than 50% in coordination of care (as documented) at patient's floor/unit and/or counseling patient: 25 - 35 minutes
[2017-06-08] MEDS ORDERED: FUROSEMIDE 40 MG/4 ML VIAL IV ONE (15:26)
[2017-06-08] MEDS: NACL 0.9% W/KCL 20MEQ 1,000 ML IV SCH (15:49)
--- NOTE | 2017-06-08 17:52 | Internal Med Progress Note ---
Medical - PN: Subj Patient information: Note initiated : 06/08/17 at 5:50 pm Service Date, if different from initiated Date: [] Patient: Doni Ramirez 77 y/o M admitted on 06/05/17 for Altered Mental/Left Diabetic Foot Infection. Chief Complaint: [] Interval history: June 05, 2017: History of present illness: Mr. Ramirez is a 77 year old with a history of type 2 diabetes, hypertension, chronic kidney disease, peripheral vascular disease, coronary disease who was treated recently for cellulitis. He also had a laparoscopic cholecystectomy in March. He has a chronic right knee ulcer as well as a left foot plantar neuropathic ulcer. He is generally followed at wound care. Today, his brother had him brought to the emergency room, for increasing confusion and high fever. ER evaluation showed leukocytosis, confusion, fever, consistent with SIRS syndrome. Patient is now admitted for further evaluation and treatment. By the time I got to see the patient, his brother had unfortunately gone home. The patient remains fairly lethargic and unable to answer most questions. On arrival, he was complaining of left-sided chest discomfort, which she could not really describe very well. He was given 2 sublingual nitroglycerin, after which he said the pain resolved. He is unable otherwise to tell me if he has recently had fever or chills, cough , chest pain or palpitations, shortness of breath, GI or symptoms. While he was in the emergency room he was noted to have lots of ectopy on his heart monitor. June 06: This morning, the patient is much more awake and alert. He says he is feeling much better. His brother is in the room with him, and says he seems almost back to normal. The brother tells me that at home the patient was running a fever, had poor appetite, and became quite confused yesterday. He tells me that they have been fighting ulcers on his right knee as well as his left foot for several months. The right knee ulcer is being managed by plastic surgery, and is now casted with a compression dressing. The brother says that has been looking really good lately. The left foot, has an ulcer of the foot stump, at the site of the previous amputation. This ulcer has had more drainage and redness lately. There is also a shallow ulcer on the foot dorsum as well as a shallow ulcer on the craig, which have been clean, but also not healing. The patient's brother states that the patient uses this left foot to bear all of his weight to stand and pivot, to help him with transfers. He agrees that this is probably preventing healing. The brother acts as the full-time caregiver. Today, the patient is awake and alert. He says he is feeling much better, and is hungry. He denies headaches or dizziness, sore throat or cough, chest pain or palpitations, shortness of breath, GI or symptoms. June 07: Today, the patient says he is feeling quite well. He denies significant pain in his foot. He has not had any further chest pain. He otherwise denies fever chills, chest pain or cough, palpitations, abdominal pain, nausea or vomiting, diarrhea or constipation. He still has his Colvin catheter in place, and says he would like to keep that in place, so he does not have to get in and out of bed so often, regarding his foot ulcer. June 08: Patient seen examined, no acute compalints, no acute ovenight events, patient does get intermittently cofused and agitated. The patient today denies any chest pain, no shortness of breath, no headache, no GI symptoms Discussed care plan with surgery who has advised local wound treatment and IV antibiotics, will need antibiotics x 2 weeks Patient can do this at home as per his brother, but we will have to tailor the antibiotics to once dailyu regimes. Patient trop is trending down to 0.06 echo done result pending. His creat is better, but he seems to have some fluid overload. IV lasix x 1 given. Pertinent ROS: Denies headache, dizziness Denies chest pain, palpitations Denies cough or shortness of breath Denies abdominal pain, nausea or vomiting. - Constitutional Vitals: Vital Signs Temp Pulse Resp BP Pulse Ox 98.0 F 51 L 24 H 109/92 88 L 06/08/17 16:21 06/08/17 04:00 06/08/17 16:21 06/08/17 16:21 06/08/17 16:21 Period Temp Pulse Resp BP Sys/Dixon Pulse Ox Last 24 Hr 97.5 F-99.2 F 44-51 16- 109-155/51-120 88-100 Intake and Output 06/08/17 06/08/17 06/08/17 05:59 13:59 21:59 Intake Total 800 / 800 2390 / 2390 Output Total 625 / 625 1000 / 1000 1200 / 1200 Balance 175 / 175 1390 / 1390 -1200 / -1200 Intake & Output: Intake & Output 06/08/17 06/08/17 06/08/17 05:59 13:59 21:59 Intake Total 800 / 800 2390 / 2390 Output Total 625 / 625 1000 / 1000 1200 / 1200 Balance 175 / 175 1390 / 1390 -1200 / -1200 Intake: IV 150 / 150 2150 / 2150 NaCl 0.9% W/KCl 20Meq 1000 / 1000 1000ML 1,000 ml @ 50 mls/ hr IV .Q20H [facility] Rx#: [id number] Zosyn 2.25 gm In Dextrose 50 / 50 100 / 100 5% in Water 50 ml @ 100 mls/hr IV Q6H [facility] Rx#: [id number] Oral 650 / 650 240 / 240 Output: Urine Catheter Amount 625 / 625 1000 / 1000 1200 / 1200 Other: Meal Nourishment/Supplement Breakfast Percent of Meal Consumed 100% 100% Feeding Ability Assist with Tray Set Up Assist with Tray Set Up # Bowel Movements 1 # of times incontinent of 1 1 Bowels Exam: Constitutional; Afebrile, cooperative, alert, not in distress. Eyes- No icterus, , No periorbital swelling Ears- Ext ear normal, hearing normal to conversation. Neck- Midline trachea, supple Respiratory system: Air Entry equal on both sides, No crackles or wheezing, no rhonchi. CVS- Rate rhythm regular, S1,S2 heard, no gallop, no rub. Abdomen- Soft nontender abdomen, no organomegaly, no tenderness, no guarding or rigidity, [employer]- AOOx2, moving all extremities, no gross focal deficit noted. edema on dependent region Medical - PN: Obj Da - Labs CBC & Chem 7: 06/08/17 04:00 06/08/17 04:00 Labs: Abnormal Lab Results 06/08/17 06/08/17 06/08/17 14:15 04:00 04:00 RBC Hgb Hct RDW Plt Count Lymph % (Auto) Eos % (Auto) Lymph # (Auto) Carbon Dioxide 19 L BUN 56 H Creatinine 3.1 H Glucose 117 H Uric Acid 8.1 H Calcium 8.1 L ALT Alkaline Phosphatase Troponin T 0.06 H* Albumin 3.0 L Globulin Albumin/Globulin Ratio Vancomycin Trough Random Vancomycin 15.0 H 06/08/17 06/07/17 06/07/17 04:00 14:00 04:00 RBC 3.39 L Hgb 9.7 L Hct 29.4 L RDW 17.6 H Plt Count 138 L Lymph % (Auto) Eos % (Auto) 8.0 H Lymph # (Auto) 1.2 L Carbon Dioxide 20 L BUN 55 H Creatinine 3.3 H Glucose 124 H Uric Acid 9.0 H Calcium 8.2 L ALT 42 H Alkaline Phosphatase Troponin T Albumin 2.8 L Globulin Albumin/Globulin Ratio 0.9 L Vancomycin Trough 16.0 H Random Vancomycin 06/07/17 06/06/17 06/06/17 04:00 13:55 04:00 RBC 3.37 L Hgb 9.6 L Hct 29.6 L RDW 18.3 H Plt Count 124 L Lymph % (Auto) Eos % (Auto) Lymph # (Auto) 1.2 L Carbon Dioxide BUN Creatinine Glucose Uric Acid Calcium ALT Alkaline Phosphatase Troponin T 0.10 H* Albumin Globulin Albumin/Globulin Ratio Vancomycin Trough Random Vancomycin 11.0 H 06/06/17 06/06/17 06/05/17 04:00 04:00 17:33 RBC 3.39 L Hgb 9.7 L Hct 29.4 L RDW 18.0 H Plt Count 122 L Lymph % (Auto) 10.7 L Eos % (Auto) Lymph # (Auto) 1.0 L Carbon Dioxide 18 L BUN 43 H Creatinine 2.2 H Glucose 375 H Uric Acid 9.3 H Calcium 8.1 L ALT Alkaline Phosphatase < 5 L Troponin T 0.07 H* Albumin < 1.0 L Globulin 4.9 H Albumin/Globulin Ratio 0.2 L Vancomycin Trough Random Vancomycin Meds: Medications Acetaminophen (Tylenol) 650 mg PO Q6HP PRN PRN Reason: PAIN/FEVER > 101 Last Admin: 06/07/17 16:14 Dose: 650 mg Hydrocodone Bitart/Acetaminophen (Harrison 5/325mg) 1 tab PO Q4HP PRN PRN Reason: Pain Last Admin: 06/08/17 15:40 Dose: 1 tab Albuterol Sulfate (Ventolin) 2.5 mg NEB Q4HRT PRN PRN Reason: Shortness Of Breath Or Wheezing Aspirin (Aspirin) 81 mg PO DAILY [facility] Last Admin: 06/08/17 09:44 Dose: 81 mg Clopidogrel Bisulfate (Plavix) 75 mg PO QHS [facility] Last Admin: 06/07/17 21:14 Dose: 75 mg Collagenase (Santyl Top Oint) 1 dose TOPICAL DAILY [facility] Last Admin: 06/08/17 11:30 Dose: 1 dose Dextrose (Dextrose 50%) 0 ml IV UD PRN PRN Reason: Hypoglycemia Diagnostic Test (Pha) (Accu-Chek) 1 each FS ACHS [facility] Last Admin: 06/08/17 16:44 Dose: 1 each Docusate Sodium (Colace) 100 mg PO BID PRN PRN Reason: Constipation Ferrous Sulfate (Ferrous Sulfate) 325 mg PO QAC [facility] Last Admin: 06/08/17 09:44 Dose: 325 mg Finasteride (Proscar) 5 mg PO QDAY [facility] Last Admin: 06/08/17 09:38 Dose: 5 mg Furosemide (Lasix) 40 mg PO BID [facility] Last Admin: 06/08/17 09:44 Dose: 40 mg Gabapentin (Neurontin) 100 mg PO BID [facility] Last Admin: 06/08/17 09:38 Dose: 100 mg Glucose (Insta-Glucose) 15 gm PO PRN PRN PRN Reason: Hypoglycemia Heparin Sodium (Porcine) (Heparin) 5,000 unit SQ Q12 [facility] Last Admin: 06/08/17 09:37 Dose: 5,000 unit Gentamicin Sulfate 40 mg/Clindamycin Phosphate 300 mg/Bacitracin 25,000 unit/ Sodium Chloride 503 mls @ 500 mls/hr IRR TID [facility] Last Admin: 06/08/17 16:35 Dose: Not Given Piperacillin Sod/Tazobactam (Sod 2.25 gm/ Dextrose) 50 mls @ 100 mls/hr IV Q6H [facility] Last Infusion: 06/08/17 12:38 Dose: Infused Potassium Chloride/Sodium Chloride (Nacl 0.9% W/Kcl 20meq 1000ml) 1,000 mls @ 50 mls/hr IV .Q20H [facility] Last Admin: 06/08/17 15:49 Dose: 50 mls/hr Vancomycin HCl 500 mg/ Sodium (Chloride) 100 mls @ 100 mls/hr IV DAILY [facility] Insulin Glargine (Lantus) 35 unit SQ QDAY [facility] Last Admin: 06/08/17 09:37 Dose: 35 unit Insulin Human Lispro (Humalog) 0 unit SQ ACHS [facility] PRN Reason: Protocol Last Admin: 06/08/17 16:49 Dose: 3 unit Iron Carb/Multivit/[place]/Folic Acid (Multivitamin W/Minerals) 1 tab PO DAILY [facility] Last Admin: 06/08/17 09:38 Dose: 1 tab Levothyroxine Sodium (Synthroid) 50 mcg PO QAMAC [facility] Last Admin: 06/08/17 07:41 Dose: 50 mcg Magnesium Hydroxide (Milk Of Magnesia) 30 ml PO DAILYP PRN PRN Reason: Constipation Morphine Sulfate (Morphine) 2 mg IV Q1HP PRN PRN Reason: Pain Naloxone HCl (Narcan) 0.1 mg IV Q2MIN PRN PRN Reason: Opiate Reversal Nitroglycerin (Nitrostat) 0.4 mg SL Q5MIN PRN PRN Reason: chest pain Last Admin: 06/05/17 17:30 Dose: 0.4 mg Ondansetron HCl (Zofran) 4 mg IV Q4HP PRN PRN Reason: Nausea And Vomiting Last Admin: 06/06/17 06:14 Dose: 4 mg Pantoprazole Sodium (Protonix) 40 mg PO ACB [facility] Last Admin: 06/08/17 07:20 Dose: 40 mg Sitagliptin Phosphate (Januvia) 25 mg PO DAILY [facility] Last Admin: 06/08/17 09:43 Dose: 25 mg Sodium Chloride (Saline Flush) 10 ml IV Q12 [facility] Tamsulosin HCl (Flomax) 0.4 mg PO QDAY [facility] Last Admin: 06/08/17 09:44 Dose: 0.4 mg Vancomycin HCl (Vancomycin Per Pharmacy) 1 order IV UD [facility] Vitamin D (Vitamin D3) 1,000 unit PO DAILY [facility] Last Admin: 06/08/17 09:44 Dose: 1,000 unit Medical - PN: A/P - Time Spent With Patient Total time spent is greater than 50% in coordination of care (as documented) at patient's floor/unit and/or counseling patient: (1) SIRS (systemic inflammatory response syndrome) Problem details: SIRS, OPEN wounds Left foot DM Velazquez 2 TMA stump and dorsal surfqce of left foot and ulcer up to sub cuatneous adipoe tissue anterior lower leg . CELLULITIS foot and leg Status: Acute Current Visit: Yes (2) Cellulitis Status: Acute Current Visit: Yes (3) Renal insufficiency Status: Chronic Current Visit: No (4) Edema Status: Chronic Current Visit: No (5) Chronic kidney disease, stage III (moderate) Status: Chronic Current Visit: No (6) Diabetes mellitus Problem details: type 2 Status: Chronic Current Visit: No (7) Coronary artery disease Status: Chronic Current Visit: No - Narrative A/P Narrative: #1. Infectious disease. Patient presents with signs and symptoms of SIRS syndrome, presumably due to ongoing left diabetic foot infection. He also presented with medical delirium. -Clinically he much better. Confusion seems to be mostly cleared. Fever resolved. -Continue IV Zosyn and vancomycin. total of 14 days of ABX as per Dr Michael. - of wound care is following as well. We are to continue with local wound care for now. Infection is likely due to ongoing wounds of both lower extremities, complicated by peripheral vascular disease and diabetes. 2. Neurologic. Medical delirium is clearing. 3. Endocrine. History of type 2 diabetes. Patient presents with hyperglycemia. -IV fluids. Accu-Cheks continue to run rather high, ranging from 225. Increase sliding scale to medium. Continue Lantus and Januvia. -hypothyroidism. Continue levothyroxine. 4. Cardiac. History of coronary artery disease. Probable recent CHF. edema noted on dependent regions, IV lasix given. -Coronary artery disease. Patient had chest pain on arrival. This resolved after 2 sublingual nitroglycerin. Believe he has a history of intermittent angina at home. Second and third troponin did trend upwards, but again is unclear how to interpret this in the setting of his renal failure. today trop is trending down. . He will continue with aspirin and Plavix. -Consider checking follow-up echocardiogram, to see if he has new wall motion abnormalities are significantly depressed ejection fraction. He is not currently on a beta-ilia, apparently had some difficulties with bradycardia in the past. He continues to have bradycardia, particularly during sleep. consider touching base with his rocket test fire worker once echo result is available. about whether or not we should go ahead with a pacemaker, so that we could add back a beta-ilia for coronary ischemia issues. (The brother does say that if the patient becomes unstable from a cardiac standpoint, that they would still want him to be transferred somewhere where rocket test fire worker could do any procedures that might be necessary to keep him going. He says they are really not at the point of wanting to withdraw care in any way. We discussed that with his bradycardia, he will likely need a pacemaker, to allow us to reinstitute a beta-ilia, to give him further cardiac protection.) -Continue to monitor heart rhythm tonight. If he has further cardiac symptoms, I will need to call another hospital for a cardiac consult. -Hypertension. Continue aspirin. Resume Lasix once blood pressure is stable and renal function is to baseline. 5. Vascular. Known vascular disease, likely contributing to poor wound healing. Continue Plavix and aspirin. 6. Renal. History of Chronic kidney disease stage III kidney disease, followed by Dr. Brown. Renal function looks somewhat better today monitor renal function Consult dr Brown if worsneing renal function. 7. . History of urine retention. Also history of UTI. Colvin catheter is in place, and patient requests that we leave it in place, so that he does not have to get up and down to urinate. He would like to keep his foot elevated, and I suspect would prefer that he stay nonweightbearing. 8. DVT prophylaxis: Continue aspirin and Plavix. Added low-dose heparin until more mobile. 9. CODE STATUS: The patient's brother apparently signed a polst form asking for DNR . 10. GI. Status post recent laparoscopic cholecystectomy March 29, 2017. . Medical - PN: Qual - VTE Deep Vein Thrombosis/Pulmonary Embolism Present on Admission: No
[2017-06-08] MEDS: VANCOMYCIN 500 MG in 0.9 % SODIUM CHLORIDE 100 ML IV SCH (18:47)
[2017-06-08] MEDS: CLOPIDOGREL 75 MG TABLET PO SCH (20:31)
[2017-06-08] MEDS: 0.9 % SODIUM CHLORIDE 10 ML SYRINGE IV SCH (21:02)
[2017-06-08] MEDS: ATORVASTATIN 20 MG TABLET PO SCH (21:05)
[2017-06-09] MEDS: HYDROcodone/APAP 5/325MG TABLET PO PRN ×3 (05:03→19:19)
[2017-06-09] MEDS: PIPERACILLIN SODIUM/TAZOBACTAM 2.25 GM in DEXTROSE 5% IN WATER 50 ML IV SCH ×4 (05:20→23:41)
[2017-06-09 06:25] LABS: Basophils # (Auto) 0 K/mcL (0.0-0.3); Basophils % (Auto) 0.6 % (0.0-2.0); Eosinophils # (Auto) 0.3 K/mcL (0.0-0.7); Eosinophils % (Auto) 6.2 % (0.0-7.0); Granulocytes % (Auto) 63.1 % (38.0-78.0); Lymphocytes # (Auto) 1.2 K/mcL (1.5-4.8); Lymphocytes % (Auto) 22.1 % (15.5-49.0); Mean Cell Volume 86.6 fL (80.0-100.0); Mean Corpuscular HGB Conc 32.8 g/dL (31.0-36.0); Mean Corpuscular Hemoglobin 28.5 pg (26.0-34.0); Monocytes # (Auto) 0.4 K/mcL (0.1-0.9); Platelet Count 131 K/mcL (140-440); Red Cell Distribution Width 18.3 % (11.5-14.5)
[2017-06-09 06:32] LABS: ALT/SGPT 28 U/l (0-40); Albumin 2.5 gm/dL (3.2-5.2); Albumin/Globulin Ratio 0.9 (1.0-2.3); Alkaline Phosphatase 44 U/L (39-117); Bilirubin,Direct < 0.2 mg/dL (0.0-0.3); Blood Urea Nitrogen 46 mg/dl (8-23); Gamma Glutamyl Transpeptidase 18 U/L (8-61); Magnesium 1.8 mg/dL (1.6-2.5); Uric Acid 6.8 mg/dL (2.5-8.0)
[2017-06-09 06:32] LABS: HDL Cholesterol 15 mg/dl (>40); LDL Cholesterol,Calculated 64 mg/dl (SEE CHART)
[2017-06-09] MEDS: PANTOPRAZOLE 40 MG TABLET PO SCH (06:53)
[2017-06-09] MEDS: LEVOTHYROXINE 50 MCG TABLET PO SCH (06:53)
[2017-06-09] MEDS: INSULIN LISPRO 1 UNIT/0.01 ML UNIT SQ SCH ×4 (07:30→20:55)
[2017-06-09] MEDS: ASPIRIN 81 MG TAB.CHEW PO SCH (09:02)
[2017-06-09] MEDS: FUROSEMIDE 40 MG/4 ML VIAL IV SCH ×2 (09:02→17:44)
[2017-06-09] MEDS: FERROUS SULFATE 325 MG TABLET PO SCH (09:02)
[2017-06-09] MEDS: MULTIVIT,THER IRON,CA,FA & MIN 1 TABLET PO SCH (09:02)
[2017-06-09] MEDS: TAMSULOSIN 0.4 MG CAPSULE PO SCH (09:02)
[2017-06-09] MEDS: ACETAMINOPHEN 325 MG TABLET PO PRN (09:03)
[2017-06-09] MEDS: HEPARIN 5,000 UNIT/ML VIAL SQ SCH ×2 (09:03→20:55)
[2017-06-09] MEDS: GABAPENTIN 100 MG CAPSULE PO SCH ×2 (09:03→20:57)
[2017-06-09] MEDS: 0.9 % SODIUM CHLORIDE 10 ML SYRINGE IV SCH ×3 (09:04→20:58)
[2017-06-09] MEDS: FINASTERIDE 5 MG TABLET PO SCH (09:04)
[2017-06-09] MEDS: VITAMIN D3 1,000 UNIT TABLET PO SCH (09:04)
[2017-06-09] MEDS: sitaGLIPtin 50 MG TABLET PO SCH (09:04)
[2017-06-09] MEDS: NACL 0.9% W/KCL 20MEQ 1,000 ML IV SCH (09:05)
[2017-06-09] MEDS: INSULIN GLARGINE, HUMAN 1 UNIT/0.01 ML SQ SCH (09:05)
[2017-06-09] MEDS: GENTAMICIN SULFATE 40 MG, CLINDAMYCIN 300 MG, BACITRACIN 25,000 UNIT in SODIUM CHLORIDE... IRR SCH (09:59)
--- NOTE | 2017-06-09 10:33 | Internal Med Progress Note ---
Medical - PN: Subj Patient information: Note initiated : 06/09/17 at 10:32 am Patient: Doni Ramirez 77 y/o M admitted on 06/05/17 for Altered Mental/Left Diabetic Foot Infection. Interval history: June 05, 2017: History of present illness: Mr. Ramirez is a 77 year old with a history of type 2 diabetes, hypertension, chronic kidney disease, peripheral vascular disease, coronary disease who was treated recently for cellulitis. He also had a laparoscopic cholecystectomy in March. He has a chronic right knee ulcer as well as a left foot plantar neuropathic ulcer. He is generally followed at wound care. Today, his brother had him brought to the emergency room, for increasing confusion and high fever. ER evaluation showed leukocytosis, confusion, fever, consistent with SIRS syndrome. Patient is now admitted for further evaluation and treatment. By the time I got to see the patient, his brother had unfortunately gone home. The patient remains fairly lethargic and unable to answer most questions. On arrival, he was complaining of left-sided chest discomfort, which she could not really describe very well. He was given 2 sublingual nitroglycerin, after which he said the pain resolved. He is unable otherwise to tell me if he has recently had fever or chills, cough , chest pain or palpitations, shortness of breath, GI or symptoms. While he was in the emergency room he was noted to have lots of ectopy on his heart monitor. June 06: This morning, the patient is much more awake and alert. He says he is feeling much better. His brother is in the room with him, and says he seems almost back to normal. The brother tells me that at home the patient was running a fever, had poor appetite, and became quite confused yesterday. He tells me that they have been fighting ulcers on his right knee as well as his left foot for several months. The right knee ulcer is being managed by plastic surgery, and is now casted with a compression dressing. The brother says that has been looking really good lately. The left foot, has an ulcer of the foot stump, at the site of the previous amputation. This ulcer has had more drainage and redness lately. There is also a shallow ulcer on the foot dorsum as well as a shallow ulcer on the craig, which have been clean, but also not healing. The patient's brother states that the patient uses this left foot to bear all of his weight to stand and pivot, to help him with transfers. He agrees that this is probably preventing healing. The brother acts as the full-time caregiver. Today, the patient is awake and alert. He says he is feeling much better, and is hungry. He denies headaches or dizziness, sore throat or cough, chest pain or palpitations, shortness of breath, GI or symptoms. June 07: Today, the patient says he is feeling quite well. He denies significant pain in his foot. He has not had any further chest pain. He otherwise denies fever chills, chest pain or cough, palpitations, abdominal pain, nausea or vomiting, diarrhea or constipation. He still has his Colvin catheter in place, and says he would like to keep that in place, so he does not have to get in and out of bed so often, regarding his foot ulcer. June 08: Patient seen examined, no acute compalints, no acute ovenight events, patient does get intermittently cofused and agitated. The patient today denies any chest pain, no shortness of breath, no headache, no GI symptoms Discussed care plan with surgery who has advised local wound treatment and IV antibiotics, will need antibiotics x 2 weeks Patient can do this at home as per his brother, but we will have to tailor the antibiotics to once dailyu regimes. Patient trop is trending down to 0.06 echo done result pending. His creat is better, but he seems to have some fluid overload. IV lasix x 1 given. June 09: The patient has had some confusion intermittently. This morning, he is awake and alert, but still seems a bit confused. Nurses are noting that when he falls asleep, he tends to develop Abelino-Miranda respirations, and then significant bradycardia follows, with heart rates down into the 30s. This resolves if he awakens. At this time, he is awake. He does not entirely recall why he is here. He denies fever chills, chest pain or palpitations, shortness of breath, abdominal pain, nausea or vomiting, diarrhea or constipation. He continues with a Colvin catheter, more for his convenience, so he can stay off of his foot. He denies significant foot pain. - Constitutional Vitals: Vital Signs Temp Pulse Resp BP Pulse Ox 97.9 F 51 L 20 140/50 100 06/09/17 07:36 06/08/17 04:00 06/09/17 07:36 06/09/17 07:36 06/09/17 07:36 Period Temp Pulse Resp BP Sys/Dixon Pulse Ox Last 24 Hr 97.9 F-98.6 F 16-24 109-152/50-120 88-100 Intake and Output 06/08/17 06/09/17 06/09/17 21:59 05:59 13:59 Intake Total 1051 / 1051 50 / 50 50 / 50 Output Total 1200 / 1200 4000 / 4000 575 / 575 Balance -149 / -149 -3950 / -3950 -525 / -525 Weight 215 lb 1.6 oz 206 lb 8 oz Patient Weight 06/10/17 05:59 Weight 206 lb 8 oz Intake & Output: Intake & Output 06/08/17 06/09/17 06/09/17 21:59 05:59 13:59 Intake Total 1051 / 1051 50 / 50 50 / 50 Output Total 1200 / 1200 4000 / 4000 575 / 575 Balance -149 / -149 -3950 / -3950 -525 / -525 Weight 215 lb 1.6 oz 206 lb 8 oz Intake: IV 251 / 251 50 / 50 50 / 50 NaCl 0.9% W/KCl 20Meq 101 / 101 1000ML 1,000 ml @ 50 mls/ hr IV .Q20H [facility] Rx#: [id number] Zosyn 2.25 gm In Dextrose 50 / 50 50 / 50 50 / 50 5% in Water 50 ml @ 100 mls/hr IV Q6H [facility] Rx#: [id number] Vancomycin 500 mg In 100 / 100 Sodium Chloride 0.9% 100 ml @ 100 mls/hr IV DAILY [facility] Rx#:[id number] Oral 800 / 800 Output: Urine Catheter Amount 1200 / 1200 4000 / 4000 575 / 575 Other: # of times incontinent of 1 Bowels On exam, he is awake but slightly confused. He is not in any acute distress. He is afebrile. Heart rates when awake are ranging from 53 -62. Heart rates dropped into the 30s and 40s when asleep. He then exhibits Abelino-Miranda respirations. Current O2 saturation is 100% on 1-2 L nasal cannula. He does drop as low as 88% on room air. He was given IV Lasix yesterday, and put out over 6000 mL of urine. I's and O' s are negative for 2700 mL over the last 24 hours. Neck is supple without obvious lymphadenopathy or JVD. Cardiac exam shows a somewhat irregularly irregular rhythm. Lungs: Clear to auscultation. Abdomen is soft and nontender. Extremities: Right lower extremity remains casted. Distal stump looks fine. Left foot was just re-bandaged by the nurse. Dressing is clean and dry. No significant erythema is noted today. Neurologic: Patient is awake, but quite forgetful. He has no gross speech or motor deficits. Medical - PN: Obj Da - Labs CBC & Chem 7: 06/09/17 03:45 06/09/17 03:45 Labs: Abnormal Lab Results 06/09/17 06/09/17 06/09/17 04:00 03:45 03:45 RBC 3.30 L Hgb 9.4 L Hct 28.6 L RDW 18.3 H Plt Count 131 L Eos % (Auto) Lymph # (Auto) 1.2 L Carbon Dioxide 18 L BUN 46 H Creatinine 2.4 H Glucose 154 H Uric Acid Calcium 7.6 L Phosphorus 2.6 L ALT Troponin T Total Protein 5.4 L Albumin 2.5 L Albumin/Globulin Ratio 0.9 L HDL Cholesterol 15 L Vancomycin Trough Random Vancomycin 06/08/17 06/08/17 06/08/17 14:15 04:00 04:00 RBC Hgb Hct RDW Plt Count Eos % (Auto) Lymph # (Auto) Carbon Dioxide 19 L BUN 56 H Creatinine 3.1 H Glucose 117 H Uric Acid 8.1 H Calcium 8.1 L Phosphorus ALT Troponin T 0.06 H* Total Protein Albumin 3.0 L Albumin/Globulin Ratio HDL Cholesterol Vancomycin Trough Random Vancomycin 15.0 H 06/08/17 06/07/17 06/07/17 04:00 14:00 04:00 RBC 3.39 L Hgb 9.7 L Hct 29.4 L RDW 17.6 H Plt Count 138 L Eos % (Auto) 8.0 H Lymph # (Auto) 1.2 L Carbon Dioxide 20 L BUN 55 H Creatinine 3.3 H Glucose 124 H Uric Acid 9.0 H Calcium 8.2 L Phosphorus ALT 42 H Troponin T Total Protein Albumin 2.8 L Albumin/Globulin Ratio 0.9 L HDL Cholesterol Vancomycin Trough 16.0 H Random Vancomycin 06/07/17 06/06/17 04:00 13:55 RBC 3.37 L Hgb 9.6 L Hct 29.6 L RDW 18.3 H Plt Count 124 L Eos % (Auto) Lymph # (Auto) 1.2 L Carbon Dioxide BUN Creatinine Glucose Uric Acid Calcium Phosphorus ALT Troponin T Total Protein Albumin Albumin/Globulin Ratio HDL Cholesterol Vancomycin Trough Random Vancomycin 11.0 H June 08: Echocardiogram: Left ventricle is moderately dilated, with severely reduced ejection fraction of 22%. The mid to basal anteroseptal wall is dyskinetic. LV diastolic function is consistent with grade 3 diastolic dysfunction. He has biatrial enlargement. Moderate to severe mitral calcification. Mild to moderate mitral regurgitation. Probable severe pulmonary hypertension. June 07: Left foot wound Gram stain: Shows a few polys, no organisms. June 06: Blood cultures are negative so far. June 05: CBC: White blood cell count 14,900, hemoglobin 11, hematocrit 33.8, RDW 17, absolute granulocyte count 13,400, lymphocyte count 600 Venous blood gas: PH 7.45 CO2 25, PO2 122, lactic acid normal at 2.0 Chemistry panel: Bicarb is low at 18, anion gap elevated at 20, BUN 41, creatinine 1.8, glucose 355, ionized calcium low at 1.15 Troponin is elevated at 0.05, 0.07, 0.10 Urinalysis: Shows greater than 500 mg of protein, greater than 500 glucose, negative nitrites and negative leukocyte esterase. Chest x-ray shows mild cardiomegaly. CHF seen on June 03, shows near complete resolution. EKG: Is probable atrial fibrillation at a rate of 72, left axis deviation, probable old anteroseptal MA, PVCs noted, no significant ST-T changes when compared to his last EKG from March 30, 2017. Frequent ventricular ectopy was noted on arrival to the emergency room. Meds: Medications Acetaminophen (Tylenol) 650 mg PO Q6HP PRN PRN Reason: PAIN/FEVER > 101 Last Admin: 06/09/17 09:03 Dose: 650 mg Hydrocodone Bitart/Acetaminophen ([place] 5/325mg) 1 tab PO Q4HP PRN PRN Reason: Pain Last Admin: 06/09/17 05:03 Dose: 1 tab Albuterol Sulfate (Ventolin) 2.5 mg NEB Q4HRT PRN PRN Reason: Shortness Of Breath Or Wheezing Aspirin (Aspirin) 81 mg PO DAILY [facility] Last Admin: 06/09/17 09:02 Dose: 81 mg Atorvastatin Calcium (Lipitor) 40 mg PO HS [facility] Last Admin: 06/08/17 21:05 Dose: 40 mg Clopidogrel Bisulfate (Plavix) 75 mg PO QHS [facility] Last Admin: 06/08/17 20:31 Dose: 75 mg Collagenase (Santyl Top Oint) 1 dose TOPICAL DAILY [facility] Last Admin: 06/08/17 11:30 Dose: 1 dose Dextrose (Dextrose 50%) 0 ml IV UD PRN PRN Reason: Hypoglycemia Diagnostic Test (Pha) (Accu-Chek) 1 each FS ACHS [facility] Last Admin: 06/09/17 07:25 Dose: 1 each Docusate Sodium (Colace) 100 mg PO BID PRN PRN Reason: Constipation Ferrous Sulfate (Ferrous Sulfate) 325 mg PO QAC [facility] Last Admin: 06/09/17 09:02 Dose: 325 mg Finasteride (Proscar) 5 mg PO QDAY [facility] Last Admin: 06/09/17 09:04 Dose: 5 mg Furosemide (Lasix) 40 mg IV BIDD [facility] Last Admin: 06/09/17 09:02 Dose: 40 mg Gabapentin (Neurontin) 100 mg PO BID [facility] Last Admin: 06/09/17 09:03 Dose: 100 mg Glucose (Insta-Glucose) 15 gm PO PRN PRN PRN Reason: Hypoglycemia Heparin Sodium (Porcine) (Heparin) 5,000 unit SQ Q12 [facility] Last Admin: 06/09/17 09:03 Dose: 5,000 unit Piperacillin Sod/Tazobactam (Sod 2.25 gm/ Dextrose) 50 mls @ 100 mls/hr IV Q6H [facility] Last Infusion: 06/09/17 06:00 Dose: Infused Potassium Chloride/Sodium Chloride (Nacl 0.9% W/Kcl 20meq 1000ml) 1,000 mls @ 50 mls/hr IV .Q20H [facility] Last Admin: 06/09/17 09:05 Dose: Not Given Vancomycin HCl 500 mg/ Sodium (Chloride) 100 mls @ 100 mls/hr IV DAILY [facility] Last Infusion: 06/08/17 19:55 Dose: Infused Insulin Glargine (Lantus) 35 unit SQ QDAY [facility] Last Admin: 06/09/17 09:05 Dose: 35 unit Insulin Human Lispro (Humalog) 0 unit SQ ACHS [facility] PRN Reason: Protocol Last Admin: 06/09/17 07:30 Dose: 4 unit Iron Carb/Multivit/Whitecone/Folic Acid (Multivitamin W/Minerals) 1 tab PO DAILY [facility] Last Admin: 06/09/17 09:02 Dose: 1 tab Levothyroxine Sodium (Synthroid) 50 mcg PO QAMAC [facility] Last Admin: 06/09/17 06:53 Dose: 50 mcg Magnesium Hydroxide (Milk Of Magnesia) 30 ml PO DAILYP PRN PRN Reason: Constipation Morphine Sulfate (Morphine) 1 mg IV Q1HP PRN PRN Reason: Pain Last Admin: 06/09/17 06:54 Dose: 1 mg Naloxone HCl (Narcan) 0.1 mg IV Q2MIN PRN PRN Reason: Opiate Reversal Nitroglycerin (Nitrostat) 0.4 mg SL Q5MIN PRN PRN Reason: chest pain Last Admin: 06/05/17 17:30 Dose: 0.4 mg Ondansetron HCl (Zofran) 4 mg IV Q4HP PRN PRN Reason: Nausea And Vomiting Last Admin: 06/06/17 06:14 Dose: 4 mg Pantoprazole Sodium (Protonix) 40 mg PO ACB [facility] Last Admin: 06/09/17 06:53 Dose: 40 mg Sitagliptin Phosphate (Januvia) 25 mg PO DAILY [facility] Last Admin: 06/09/17 09:04 Dose: 25 mg Sodium Chloride (Saline Flush) 10 ml IV Q12 [facility] Last Admin: 06/09/17 09:04 Dose: 10 ml Tamsulosin HCl (Flomax) 0.4 mg PO QDAY [facility] Last Admin: 06/09/17 09:02 Dose: 0.4 mg Vancomycin HCl (Vancomycin Per Pharmacy) 1 order IV UD [facility] Vitamin D (Vitamin D3) 1,000 unit PO DAILY [facility] Last Admin: 06/09/17 09:04 Dose: 1,000 unit Medical - PN: A/P - Time Spent With Patient Total time spent is greater than 50% in coordination of care (as documented) at patient's floor/unit and/or counseling patient: Greater than 35 minutes - Narrative A/P Narrative: #1. Infectious disease. Patient presents with signs and symptoms of SIRS syndrome, presumably due to ongoing left diabetic foot infection. He also presented with medical delirium. -Clinically he much better. Confusion seems to be mostly cleared. Fever resolved. -Continue IV Zosyn and vancomycin. total of 14 days of ABX as per Dr Michael. - of wound care is following as well. We are to continue with local wound care for now. Infection is likely due to ongoing wounds of both lower extremities, complicated by peripheral vascular disease and diabetes. 2. Neurologic. Medical delirium is clearing. 3. Endocrine. History of type 2 diabetes. Patient presents with hyperglycemia. -IV fluids. Accu-Cheks continue to run rather high, ranging from 225. Increase sliding scale to medium. Continue Lantus and Januvia. -hypothyroidism. Continue levothyroxine. 4. Cardiac. -Coronary artery disease. Patient had chest pain on arrival. This resolved after 2 sublingual nitroglycerin. Second and third troponin did trend upwards, but again is unclear how to interpret this in the setting of his renal failure. A follow-up troponin yesterday was trending back down. . He will continue with aspirin and Plavix. -Echocardiogram from yesterday shows significant systolic dysfunction. I reviewed his case today with his manager workers compensation, Dr. Villa. He feels that the patient probably has had an MA recently, causing the decrease in ejection fraction. He says the patient would likely benefit from a pacemaker, as the bradycardia on top of the heart failure is likely making things worse. He suggests that the Abelino-Miranda breathing pattern may be a result of significant heart failure. He does not believe, however, that a manager workers compensation would accept the patient at this time to do a pacemaker, given that the patient has an active infection. He suggested we continue to treat his infection and otherwise treat him supportively, before deciding. He thinks that given the patient's multiple comorbidities, that he would be unlikely to benefit from aggressive cardiac intervention, and suggested we discussed this with his brother and caregiver. Dr. Villa also offered to talk with the patient's brother himself. He is not currently on a beta-ilia, apparently had some difficulties with bradycardia in the past. He continues to have bradycardia, particularly during sleep. Once the patient is more stable, we could consider a pacemaker, so that we could then add back a beta-ilia to help prevent coronary ischemia. -Discuss his overall poor prognosis with his brother, as further aggressive cardiac intervention may be inappropriate. -He is having an abnormal breathing pattern during sleep. It is unclear if he might have occult sleep apnea, or if he is having Abelino-Miranda in response to severe heart failure. I have asked respiratory therapy to give him a trial of BiPAP with sleep, to see if that improves oxygenation, and then improves both cardiac function and recurrent bradycardia. -Hypertension. Continue aspirin. Lasix resumed. 5. Vascular. Known vascular disease, likely contributing to poor wound healing. Continue Plavix and aspirin. 6. Renal. History of Chronic kidney disease stage III kidney disease, followed by Dr. Brown. Renal function looks somewhat better today monitor renal function Consult dr Brown if worsneing renal function. 7. . History of urine retention. Also history of UTI. Colvin catheter is in place, and patient requests that we leave it in place, so that he does not have to get up and down to urinate. He would like to keep his foot elevated, and I suspect would prefer that he stay nonweightbearing. 8. DVT prophylaxis: Continue aspirin and Plavix. Added low-dose heparin until more mobile. 9. CODE STATUS: The patient's brother apparently signed a polst form asking for DNR . 10. GI. Status post recent laparoscopic cholecystectomy March 29, 2017. . Medical - PN: Qual - VTE Deep Vein Thrombosis/Pulmonary Embolism Present on Admission: No
[2017-06-09] MEDS: VANCOMYCIN 500 MG in 0.9 % SODIUM CHLORIDE 100 ML IV SCH (14:04)
--- NOTE | 2017-06-09 16:40 | General Surgery Progress Note ---
Subjective Narrative: Note initiated : 06/09/17 at 4:36 pm Service Date, if different from initiated Date: [] Patient: Doni Ramirez 77 y/o M admitted on 06/05/17 for Altered Mental/Left Diabetic Foot Infection. Chief Complaint: [] Patient seen with Purnima RN and Isabel RN. ICU progress noted, Left foot wounds reexamined, whilst he was undergoing MIST treatment. Spoke with Dr. 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 Objective Temp Pulse Resp BP Pulse Ox 97.9 F 60 20 136/57 100 06/09/17 16:28 06/09/17 08:00 06/09/17 16:28 06/09/17 16:28 06/09/17 16:28 H/o CARLOS with bradycardia. ECHO cardiogram results pending. Left leg wounds stable , getting MIST therapy as instructed. MRI of LEFT foot is awaited . will come by later to Check / change his RIGHT BKA post operative dressing - Additional Data Intake & Output - Last 24 hours: Intake & Output 06/07/17 06/08/17 06/09/17 06/10/17 05:59 05:59 05:59 05:59 Intake Total 2890 / 2890 2130 / 2130 3491 / 3491 320 / 320 Output Total 475 / 475 1025 / 1025 6200 / 6200 2500 / 2500 Balance 2415 / 2415 1105 / 1105 -2709 / -2709 -2180 / -2180 Weight 204 lb 213 lb 7.2 oz 215 lb 1.6 oz 206 lb 8 oz - Labs 06/09/17 03:45 06/09/17 03:45 Diabetes panel 06/09/17 06/09/17 Range/Units 03:45 04:00 Sodium 140 (133-145) mmol/L Potassium 4.1 (3.3-5.1) mmol/L Chloride 107 (96-108) mmol/L Carbon Dioxide 18 L (22-30) mmol/L BUN 46 H (8-23) mg/dl Creatinine 2.4 H (0.7-1.2) mg/dl Glucose 154 H (70-105) mg/dL Calcium 7.6 L (8.6-10.4) mg/dl AST 18 (0-37) U/l ALT 28 (0-40) U/l Alkaline Phosphatase 44 (39-117) U/L Total Protein 5.4 L (5.9-8.4) gm/dL Albumin 2.5 L (3.2-5.2) gm/dL Triglycerides 137 134 (<150) mg/dl HDL Cholesterol 15 L (>40) mg/dl Calcium panel 06/09/17 Range/Units 03:45 Calcium 7.6 L (8.6-10.4) mg/dl Phosphorus 2.6 L (2.7-4.5) mg/dL Albumin 2.5 L (3.2-5.2) gm/dL Pituitary panel 06/09/17 Range/Units 03:45 Sodium 140 (133-145) mmol/L Potassium 4.1 (3.3-5.1) mmol/L Chloride 107 (96-108) mmol/L Carbon Dioxide 18 L (22-30) mmol/L BUN 46 H (8-23) mg/dl Creatinine 2.4 H (0.7-1.2) mg/dl Glucose 154 H (70-105) mg/dL Calcium 7.6 L (8.6-10.4) mg/dl Adrenal panel 06/09/17 Range/Units 03:45 Sodium 140 (133-145) mmol/L Potassium 4.1 (3.3-5.1) mmol/L Chloride 107 (96-108) mmol/L Carbon Dioxide 18 L (22-30) mmol/L BUN 46 H (8-23) mg/dl Creatinine 2.4 H (0.7-1.2) mg/dl Glucose 154 H (70-105) mg/dL Calcium 7.6 L (8.6-10.4) mg/dl Total Bilirubin 0.3 (0.0-1.0) mg/dL AST 18 (0-37) U/l ALT 28 (0-40) U/l Alkaline Phosphatase 44 (39-117) U/L Total Protein 5.4 L (5.9-8.4) gm/dL Albumin 2.5 L (3.2-5.2) gm/dL Assessment and Plan (1) SIRS (systemic inflammatory response syndrome) Problem details: SIRS, OPEN wounds Left foot DM Velazquez 2 TMA stump and dorsal surfqce of left foot and ulcer up to sub cuatneous adipoe tissue anterior lower leg . CELLULITIS foot and leg Status: Acute Current Visit: Yes - Time Spent With Patient Total time spent is greater than 50% in coordination of care (as documented) at patient's floor/unit and/or counseling patient: Assessment: NO acute changes. Await input from Cardiology and from Dr. Lilly about wound status Right RLE. Spoke with Doni at length about wound care and complications of Left forefoot amputation Possibility of RIGHT BKA in future has to be considered Plan: Continue current treatment and wound care, 15 - 24 minutes
[2017-06-09] MEDS: COLLAGENASE TOP OINT TUBE 30GM TOPICAL SCH (18:08)
[2017-06-09] MEDS ORDERED: LORazepam 2 MG/ML VIAL IV PRN (19:16)
[2017-06-09] MEDS: CLOPIDOGREL 75 MG TABLET PO SCH (20:57)
[2017-06-09] MEDS: ATORVASTATIN 20 MG TABLET PO SCH (20:57)
[2017-06-10] MEDS: NACL 0.9% W/KCL 20MEQ 1,000 ML IV SCH (04:24)
[2017-06-10 04:58] LABS: Basophils # (Auto) 0 K/mcL (0.0-0.3); Basophils % (Auto) 0.9 % (0.0-2.0); Eosinophils # (Auto) 0.3 K/mcL (0.0-0.7); Granulocytes % (Auto) 56.2 % (38.0-78.0); Lymphocytes # (Auto) 1.6 K/mcL (1.5-4.8); Lymphocytes % (Auto) 29.6 % (15.5-49.0); Mean Cell Volume 86.1 fL (80.0-100.0); Mean Corpuscular HGB Conc 32.9 g/dL (31.0-36.0); Mean Corpuscular Hemoglobin 28.3 pg (26.0-34.0); Monocytes # (Auto) 0.4 K/mcL (0.1-0.9); Monocytes % (Auto) 7.3 % (1.0-12.0); Platelet Count 134 K/mcL (140-440); RBC 3.49 M/mcL (4.50-5.90)
[2017-06-10] MEDS: PIPERACILLIN SODIUM/TAZOBACTAM 2.25 GM in DEXTROSE 5% IN WATER 50 ML IV SCH ×3 (05:19→20:27)
[2017-06-10 05:27] LABS: ALT/SGPT 28 U/l (0-40); Albumin 2.9 gm/dL (3.2-5.2); Alkaline Phosphatase 41 U/L (39-117); Bilirubin,Direct < 0.2 mg/dL (0.0-0.3); Blood Urea Nitrogen 45 mg/dl (8-23); Gamma Glutamyl Transpeptidase 20 U/L (8-61); Magnesium 1.9 mg/dL (1.6-2.5); Uric Acid 7.4 mg/dL (2.5-8.0)
[2017-06-10] MEDS: INSULIN LISPRO 1 UNIT/0.01 ML UNIT SQ SCH ×4 (08:57→21:38)
[2017-06-10] MEDS: PANTOPRAZOLE 40 MG TABLET PO SCH (08:58)
[2017-06-10] MEDS: LEVOTHYROXINE 50 MCG TABLET PO SCH (08:58)
--- NOTE | 2017-06-10 09:36 | Internal Med Progress Note ---
Medical - PN: Subj Patient information: Note initiated : 06/10/17 at 9:36 am Patient: Doni Ramirez 77 y/o M admitted on 06/05/17 for Altered Mental/Left Diabetic Foot Infection. Interval history: June 05, 2017: History of present illness: Mr. Ramirez is a 77 year old with a history of type 2 diabetes, hypertension, chronic kidney disease, peripheral vascular disease, coronary disease who was treated recently for cellulitis. He also had a laparoscopic cholecystectomy in March. He has a chronic right knee ulcer as well as a left foot plantar neuropathic ulcer. He is generally followed at wound care. Today, his brother had him brought to the emergency room, for increasing confusion and high fever. ER evaluation showed leukocytosis, confusion, fever, consistent with SIRS syndrome. Patient is now admitted for further evaluation and treatment. By the time I got to see the patient, his brother had unfortunately gone home. The patient remains fairly lethargic and unable to answer most questions. On arrival, he was complaining of left-sided chest discomfort, which she could not really describe very well. He was given 2 sublingual nitroglycerin, after which he said the pain resolved. He is unable otherwise to tell me if he has recently had fever or chills, cough , chest pain or palpitations, shortness of breath, GI or symptoms. While he was in the emergency room he was noted to have lots of ectopy on his heart monitor. June 06: This morning, the patient is much more awake and alert. He says he is feeling much better. His brother is in the room with him, and says he seems almost back to normal. The brother tells me that at home the patient was running a fever, had poor appetite, and became quite confused yesterday. He tells me that they have been fighting ulcers on his right knee as well as his left foot for several months. The right knee ulcer is being managed by plastic surgery, and is now casted with a compression dressing. The brother says that has been looking really good lately. The left foot, has an ulcer of the foot stump, at the site of the previous amputation. This ulcer has had more drainage and redness lately. There is also a shallow ulcer on the foot dorsum as well as a shallow ulcer on the craig, which have been clean, but also not healing. The patient's brother states that the patient uses this left foot to bear all of his weight to stand and pivot, to help him with transfers. He agrees that this is probably preventing healing. The brother acts as the full-time caregiver. Today, the patient is awake and alert. He says he is feeling much better, and is hungry. He denies headaches or dizziness, sore throat or cough, chest pain or palpitations, shortness of breath, GI or symptoms. June 07: Today, the patient says he is feeling quite well. He denies significant pain in his foot. He has not had any further chest pain. He otherwise denies fever chills, chest pain or cough, palpitations, abdominal pain, nausea or vomiting, diarrhea or constipation. He still has his Colvin catheter in place, and says he would like to keep that in place, so he does not have to get in and out of bed so often, regarding his foot ulcer. June 08: Patient seen examined, no acute compalints, no acute ovenight events, patient does get intermittently cofused and agitated. The patient today denies any chest pain, no shortness of breath, no headache, no GI symptoms Discussed care plan with surgery who has advised local wound treatment and IV antibiotics, will need antibiotics x 2 weeks Patient can do this at home as per his brother, but we will have to tailor the antibiotics to once dailyu regimes. Patient trop is trending down to 0.06 echo done result pending. His creat is better, but he seems to have some fluid overload. IV lasix x 1 given. June 09: The patient has had some confusion intermittently. This morning, he is awake and alert, but still seems a bit confused. Nurses are noting that when he falls asleep, he tends to develop Abelino-Miranda respirations, and then significant bradycardia follows, with heart rates down into the 30s. This resolves if he awakens. At this time, he is awake. He does not entirely recall why he is here. He denies fever chills, chest pain or palpitations, shortness of breath, abdominal pain, nausea or vomiting, diarrhea or constipation. He continues with a Colvin catheter, more for his convenience, so he can stay off of his foot. He denies significant foot pain. June 10: The patient was placed on BiPAP overnight, to see if improved breathing pattern would help with his nighttime bradycardia. He was given IV Ativan to help him tolerate the mask. This morning he is still quite somnolent. When he does wake up, he insists on taking off the mask. I reviewed his case today with who is also reviewed it with the plastic surgeon. I also talked to his master craftsman, Dr. Gan last night. All of us feel that this patient is too frail to undergo any major procedures. His echocardiogram shows severely depressed LV function, with known underlying coronary disease. His mental status is still not entirely back to normal. He does not appear to be perfusing his left lower extremity well enough to heal his ulcers. Dr. Gan says that if the patient is going to have aggressive care, that he would likely need a pacemaker, so that he could then tolerate a beta-ilia for his coronary ischemia. He does not feel though that anyone would want to put one in in this patient who probably has active wound infections. - Constitutional Vitals: Vital Signs Temp Pulse Resp BP Pulse Ox 97.8 F 47 L 21 130/54 99 06/09/17 20:00 06/10/17 07:15 06/10/17 07:15 06/10/17 03:35 06/10/17 07:15 Period Temp Pulse Resp BP Sys/Dixon Pulse Ox Last 24 Hr 97.8 F-98.1 F 36-48 12-21 127-170/53-142 87-100 Intake and Output 06/09/17 06/10/17 06/10/17 21:59 05:59 13:59 Intake Total 1249 / 1249 50 / 50 150 / 150 Output Total 1240 / 1240 3025 / 3025 Balance -2975 / -2975 150 / 150 Weight 200 lb 6.4 oz Intake & Output: Intake & Output 06/09/17 06/10/17 06/10/17 21:59 05:59 13:59 Intake Total 1249 / 1249 50 / 50 150 / 150 Output Total 1240 / 1240 3025 / 3025 Balance -2975 / -2975 150 / 150 Weight 200 lb 6.4 oz Intake: IV 949 / 949 50 / 50 150 / 150 NaCl 0.9% W/KCl 20Meq 899 / 899 1000ML 1,000 ml @ 50 mls/ hr IV .Q20H [facility] Rx#: [id number] Zosyn 2.25 gm In Dextrose 50 / 50 50 / 50 50 / 50 5% in Water 50 ml @ 100 mls/hr IV Q6H [facility] Rx#: [id number] Vancomycin 500 mg In 100 / 100 Sodium Chloride 0.9% 100 ml @ 100 mls/hr IV DAILY [facility] Rx#:[id number] Oral 300 / 300 Output: Urine Catheter Amount 1240 / 1240 3025 / 3025 Other: Meal Dinner Percent of Meal Consumed 75% Feeding Ability Assist with Tray Set Up # Bowel Movements 0 Heart rate is ranging from 37-52. Patient is afebrile. Pressure 130/54. O2 saturation 97% on 2 L. Neck is supple without obvious lymphadenopathy or JVD. Cardiac exam shows a somewhat irregularly irregular rhythm. Lungs: Clear to auscultation. Abdomen is soft and nontender. Extremities: Right lower extremity remains casted. Distal stump looks fine. Left foot is undressed this morning. The distal foot wound as well as the dorsal foot wound do not have active drainage, but also do not have a clear wound bed. The more proximal leg wound does have a clean base. There is no obvious erythema. The foot is rather cool. Neurologic: The patient is still quite groggy this morning, while waiting for the Ativan to wear off. Medical - PN: Obj Da - Labs CBC & Chem 7: 06/10/17 03:40 06/10/17 03:40 Labs: Abnormal Lab Results 06/10/17 06/10/17 06/09/17 03:40 03:40 04:00 RBC 3.49 L Hgb 9.9 L Hct 30.0 L RDW 18.0 H Plt Count 134 L Eos % (Auto) Lymph # (Auto) Carbon Dioxide BUN 45 H Creatinine 2.2 H Glucose Uric Acid Calcium Phosphorus Troponin T Total Protein 5.8 L Albumin 2.9 L Albumin/Globulin Ratio HDL Cholesterol 15 L Vancomycin Trough Random Vancomycin 06/09/17 06/09/17 06/08/17 03:45 03:45 14:15 RBC 3.30 L Hgb 9.4 L Hct 28.6 L RDW 18.3 H Plt Count 131 L Eos % (Auto) Lymph # (Auto) 1.2 L Carbon Dioxide 18 L BUN 46 H Creatinine 2.4 H Glucose 154 H Uric Acid Calcium 7.6 L Phosphorus 2.6 L Troponin T Total Protein 5.4 L Albumin 2.5 L Albumin/Globulin Ratio 0.9 L HDL Cholesterol Vancomycin Trough Random Vancomycin 15.0 H 06/08/17 06/08/17 06/08/17 04:00 04:00 04:00 RBC 3.39 L Hgb 9.7 L Hct 29.4 L RDW 17.6 H Plt Count 138 L Eos % (Auto) 8.0 H Lymph # (Auto) 1.2 L Carbon Dioxide 19 L BUN 56 H Creatinine 3.1 H Glucose 117 H Uric Acid 8.1 H Calcium 8.1 L Phosphorus Troponin T 0.06 H* Total Protein Albumin 3.0 L Albumin/Globulin Ratio HDL Cholesterol Vancomycin Trough Random Vancomycin 06/07/17 14:00 RBC Hgb Hct RDW Plt Count Eos % (Auto) Lymph # (Auto) Carbon Dioxide BUN Creatinine Glucose Uric Acid Calcium Phosphorus Troponin T Total Protein Albumin Albumin/Globulin Ratio HDL Cholesterol Vancomycin Trough 16.0 H Random Vancomycin June 08: Echocardiogram: Left ventricle is moderately dilated, with severely reduced ejection fraction of 22%. The mid to basal anteroseptal wall is dyskinetic. LV diastolic function is consistent with grade 3 diastolic dysfunction. He has biatrial enlargement. Moderate to severe mitral calcification. Mild to moderate mitral regurgitation. Probable severe pulmonary hypertension. June 07: Left foot wound Gram stain: Shows a few polys, no organisms. Culture is now growing a gram-negative bacillus. ID to follow. June 06: Blood cultures are negative so far. June 05: CBC: White blood cell count 14,900, hemoglobin 11, hematocrit 33.8, RDW 17, absolute granulocyte count 13,400, lymphocyte count 600 Venous blood gas: PH 7.45 CO2 25, PO2 122, lactic acid normal at 2.0 Chemistry panel: Bicarb is low at 18, anion gap elevated at 20, BUN 41, creatinine 1.8, glucose 355, ionized calcium low at 1.15 Troponin is elevated at 0.05, 0.07, 0.10 Urinalysis: Shows greater than 500 mg of protein, greater than 500 glucose, negative nitrites and negative leukocyte esterase. Chest x-ray shows mild cardiomegaly. CHF seen on June 03, shows near complete resolution. EKG: Is probable atrial fibrillation at a rate of 72, left axis deviation, probable old anteroseptal DE, PVCs noted, no significant ST-T changes when compared to his last EKG from March 30, 2017. Frequent ventricular ectopy was noted on arrival to the emergency room. Meds: Medications Acetaminophen (Tylenol) 650 mg PO Q6HP PRN PRN Reason: PAIN/FEVER > 101 Last Admin: 06/09/17 09:03 Dose: 650 mg Hydrocodone Bitart/Acetaminophen ([place]road 5/325mg) 1 tab PO Q4HP PRN PRN Reason: Pain Last Admin: 06/09/17 19:19 Dose: 1 tab Albuterol Sulfate (Ventolin) 2.5 mg NEB Q4HRT PRN PRN Reason: Shortness Of Breath Or Wheezing Aspirin (Aspirin) 81 mg PO DAILY [facility] Last Admin: 06/09/17 09:02 Dose: 81 mg Atorvastatin Calcium (Lipitor) 40 mg PO HS [facility] Last Admin: 06/09/17 20:57 Dose: 40 mg Clopidogrel Bisulfate (Plavix) 75 mg PO QHS [facility] Last Admin: 06/09/17 20:57 Dose: 75 mg Collagenase (Santyl Top Oint) 1 dose TOPICAL DAILY [facility] Last Admin: 06/09/17 18:08 Dose: 1 dose Dextrose (Dextrose 50%) 0 ml IV UD PRN PRN Reason: Hypoglycemia Diagnostic Test (Pha) (Accu-Chek) 1 each FS ACHS [facility] Last Admin: 06/10/17 08:57 Dose: 1 each Docusate Sodium (Colace) 100 mg PO BID PRN PRN Reason: Constipation Ferrous Sulfate (Ferrous Sulfate) 325 mg PO QAC [facility] Last Admin: 06/09/17 09:02 Dose: 325 mg Finasteride (Proscar) 5 mg PO QDAY [facility] Last Admin: 06/09/17 09:04 Dose: 5 mg Furosemide (Lasix) 40 mg IV BIDD [facility] Last Admin: 06/09/17 17:44 Dose: 40 mg Gabapentin (Neurontin) 100 mg PO BID [facility] Last Admin: 06/09/17 20:57 Dose: 100 mg Glucose (Insta-Glucose) 15 gm PO PRN PRN PRN Reason: Hypoglycemia Heparin Sodium (Porcine) (Heparin) 5,000 unit SQ Q12 [facility] Last Admin: 06/09/17 20:55 Dose: 5,000 unit Piperacillin Sod/Tazobactam (Sod 2.25 gm/ Dextrose) 50 mls @ 100 mls/hr IV Q6H [facility] Last Infusion: 06/10/17 07:51 Dose: Infused Potassium Chloride/Sodium Chloride (Nacl 0.9% W/Kcl 20meq 1000ml) 1,000 mls @ 50 mls/hr IV .Q20H [facility] Last Admin: 06/10/17 04:24 Dose: Not Given Vancomycin HCl 500 mg/ Sodium (Chloride) 100 mls @ 100 mls/hr IV DAILY [facility] Last Infusion: 06/10/17 07:51 Dose: Infused Insulin Glargine (Lantus) 35 unit SQ QDAY [facility] Last Admin: 06/09/17 09:05 Dose: 35 unit Insulin Human Lispro (Humalog) 0 unit SQ ACHS [facility] PRN Reason: Protocol Last Admin: 06/10/17 08:57 Dose: Not Given Iron Carb/Multivit/[place]/Folic Acid (Multivitamin W/Minerals) 1 tab PO DAILY [facility] Last Admin: 06/09/17 09:02 Dose: 1 tab Levothyroxine Sodium (Synthroid) 50 mcg PO QAMAC [facility] Last Admin: 06/10/17 08:58 Dose: 50 mcg Lorazepam (Ativan) 0.5 mg IV Q2-4HP PRN PRN Reason: ANXIETY/SEDATION Last Admin: 06/09/17 21:00 Dose: 0.5 mg Magnesium Hydroxide (Milk Of Magnesia) 30 ml PO DAILYP PRN PRN Reason: Constipation Morphine Sulfate (Morphine) 1 mg IV Q1HP PRN PRN Reason: Pain Last Admin: 06/09/17 17:35 Dose: 1 mg Naloxone HCl (Narcan) 0.1 mg IV Q2MIN PRN PRN Reason: Opiate Reversal Nitroglycerin (Nitrostat) 0.4 mg SL Q5MIN PRN PRN Reason: chest pain Last Admin: 06/05/17 17:30 Dose: 0.4 mg Ondansetron HCl (Zofran) 4 mg IV Q4HP PRN PRN Reason: Nausea And Vomiting Last Admin: 06/06/17 06:14 Dose: 4 mg Pantoprazole Sodium (Protonix) 40 mg PO ACB [facility] Last Admin: 06/10/17 08:58 Dose: 40 mg Sitagliptin Phosphate (Januvia) 25 mg PO DAILY [facility] Last Admin: 06/09/17 09:04 Dose: 25 mg Sodium Chloride (Saline Flush) 10 ml IV Q12 [facility] Last Admin: 06/09/17 20:58 Dose: 10 ml Tamsulosin HCl (Flomax) 0.4 mg PO QDAY [facility] Last Admin: 06/09/17 09:02 Dose: 0.4 mg Vancomycin HCl (Vancomycin Per Pharmacy) 1 order IV UD [facility] Vitamin D (Vitamin D3) 1,000 unit PO DAILY [facility] Last Admin: 06/09/17 09:04 Dose: 1,000 unit Medical - PN: A/P - Time Spent With Patient Total time spent is greater than 50% in coordination of care (as documented) at patient's floor/unit and/or counseling patient: Greater than 35 minutes - Narrative A/P Narrative: #1. Infectious disease. Patient presents with signs and symptoms of SIRS syndrome, presumably due to ongoing left diabetic foot infection. He also presented with medical delirium. -Clinically he much better. Confusion seems to be mostly cleared. Fever resolved. -Continue IV Zosyn and vancomycin. total of 14 days of ABX as per Dr Michael. I reviewed his case again today with he was also been in touch with the plastic surgeon. After reviewing his echocardiogram, all of us feel that this patient would not tolerate aggressive, invasive care, such as an amputation. -The corrections caseworker and I then met with the patient's brother and POA, and reviewed the situation. He is in agreement that the patient would be unlikely to tolerate aggressive care. He is willing to go with 's suggestion of continued IV antibiotics and local wound care for now. He otherwise would like the patient to be kept comfortable. He understands our opinion about why we probably should proceed with pacemaker or cardiac angiogram at this point. The patient's CODE STATUS remains DNR. Infection is likely due to ongoing wounds of both lower extremities, complicated by peripheral vascular disease and diabetes. 2. Neurologic. Medical delirium waxes and wanes a bit, likely due to illness and also to medications. Given his severe CHF, poor perfusion is likely playing a role as well. 3. Endocrine. -History of type 2 diabetes. Glucoses are ranging from 133-210. Continue Lantus plus sliding scale. -hypothyroidism. Continue levothyroxine. 4. Cardiac. -Coronary artery disease. Patient had chest pain on arrival. This resolved after 2 sublingual nitroglycerin. Second and third troponin did trend upwards, but again is unclear how to interpret this in the setting of his renal failure. A follow-up troponin yesterday was trending back down. . He will continue with aspirin and Plavix. -Echocardiogram from shows significant systolic dysfunction. I reviewed his case with his master craftsman, Dr. Gan. He suggests that the Abelino-Miranda breathing pattern may be a result of significant heart failure. He does not believe, however, that a master craftsman would accept the patient at this time to do a pacemaker, given that the patient has an active infection. He suggested we continue to treat his infection and otherwise treat him supportively, before deciding. He thinks that given the patient's multiple comorbidities, that he would be unlikely to benefit from aggressive cardiac intervention, and suggested we discussed this with his brother and caregiver. Dr. Gan also offered to talk with the patient's brother himself. -All of these issues were reviewed with the patient's brother/POA today. At this time we are going to continue with current medications and supportive care. Our current plan is not to pursue any invasive measures, such as a pacemaker or an angiogram. -BiPAP did not seem to help with the patient's nighttime bradycardia or Abelino- Miranda breathing pattern. Continue supplemental oxygen as needed. -Hypertension. Continue aspirin. Lasix resumed. 5. Vascular. Known vascular disease, likely contributing to poor wound healing. Continue Plavix and aspirin. 6. Renal. History of Chronic kidney disease stage III kidney disease, followed by Dr. Brown. Renal function looks somewhat better today monitor renal function Consult dr Brown if worsneing renal function. 7. . History of urine retention. Also history of UTI. Colvin catheter is in place, and patient requests that we leave it in place, so that he does not have to get up and down to urinate. He would like to keep his foot elevated, and I suspect would prefer that he stay nonweightbearing. 8. DVT prophylaxis: Continue aspirin and Plavix. Added low-dose heparin until more mobile. 9. CODE STATUS: The patient's brother signed a polst form asking for DNR . 10. GI. Status post recent laparoscopic cholecystectomy March 29, 2017. . Medical - PN: Qual - VTE Deep Vein Thrombosis/Pulmonary Embolism Present on Admission: No
[2017-06-10] MEDS: HEPARIN 5,000 UNIT/ML VIAL SQ SCH ×2 (10:14→21:24)
[2017-06-10] MEDS: FERROUS SULFATE 325 MG TABLET PO SCH (10:14)
[2017-06-10] MEDS: TAMSULOSIN 0.4 MG CAPSULE PO SCH (10:14)
[2017-06-10] MEDS: ASPIRIN 81 MG TAB.CHEW PO SCH (10:14)
[2017-06-10] MEDS: FUROSEMIDE 40 MG/4 ML VIAL IV SCH ×2 (10:14→17:23)
[2017-06-10] MEDS: sitaGLIPtin 50 MG TABLET PO SCH (10:15)
[2017-06-10] MEDS: INSULIN GLARGINE, HUMAN 1 UNIT/0.01 ML SQ SCH (10:15)
[2017-06-10] MEDS: GABAPENTIN 100 MG CAPSULE PO SCH ×2 (10:16→21:24)
[2017-06-10] MEDS: MULTIVIT,THER IRON,CA,FA & MIN 1 TABLET PO SCH (10:16)
[2017-06-10] MEDS: FINASTERIDE 5 MG TABLET PO SCH (10:16)
[2017-06-10] MEDS: VANCOMYCIN 500 MG in 0.9 % SODIUM CHLORIDE 100 ML IV SCH (10:16)
[2017-06-10] MEDS: VITAMIN D3 1,000 UNIT TABLET PO SCH (10:16)
[2017-06-10] MEDS: COLLAGENASE TOP OINT TUBE 30GM TOPICAL SCH (10:17)
[2017-06-10] MEDS: 0.9 % SODIUM CHLORIDE 10 ML SYRINGE IV SCH ×2 (10:17→21:24)
[2017-06-10 12:15] LABS: CK Total 51 U/L (44-196)
--- NOTE | 2017-06-10 16:37 | General Surgery Progress Note ---
Subjective Patient reports: feels better, tolerating a regular diet, afebrile, other ( Hungry and wants to eat ice cream) Narrative: Note initiated : 06/10/17 at 4:31 pm Service Date, if different from initiated Date: [] Patient: Doni Ramirez 77 y/o M admitted on 06/05/17 for Altered Mental/Left Diabetic Foot Infection. Chief Complaint: [] Objective Temp Pulse Resp BP Pulse Ox 97.6 F 53 L 18 132/51 100 06/10/17 12:00 06/10/17 12:00 06/10/17 12:00 06/10/17 12:00 06/10/17 12:00 AVSS. Bradycardia. NO ectopic beats. HD stable. Lucid, hungry and conversational wants to eat ice cream No acute changes HERMAN . Dressings CDI. Lab results reviewed. Leucocytosis resolved. Hct and plt are stable. BUN / Cr Elevated but stable. Anion gap is normal. Wound c/s GNB on IV antibiotics. Vancomycin dose adjusted per pharmacy. ECHO severly depressed EF Right BKA posterior splint and primary dressing is CDI. Seen with Dr. Lilly, plastic Surgeon yesterday. Left foot and lower leg wounds are stable with DEMARCATING eschar and adherent slough. On Collagenase treatment. - Additional Data Intake & Output - Last 24 hours: Intake & Output 06/08/17 06/09/17 06/10/17 06/11/17 05:59 05:59 05:59 05:59 Intake Total 2130 / 2130 3491 / 3491 1619 / 1619 690 / 690 Output Total 1025 / 1025 6200 / 6200 5765 / 5765 1500 / 1500 Balance 1105 / 1105 -2709 / -2709 -4146 / -4146 -810 / -810 Weight 213 lb 7.2 oz 215 lb 1.6 oz 200 lb 6.4 oz - Labs 06/10/17 03:40 06/10/17 03:40 Diabetes panel 06/10/17 Range/Units 03:40 Sodium 138 (133-145) mmol/L Potassium 4.2 (3.3-5.1) mmol/L Chloride 103 (96-108) mmol/L Carbon Dioxide 23 (22-30) mmol/L BUN 45 H (8-23) mg/dl Creatinine 2.2 H (0.7-1.2) mg/dl Glucose 93 (70-105) mg/dL Calcium 8.6 (8.6-10.4) mg/dl AST 20 (0-37) U/l ALT 28 (0-40) U/l Alkaline Phosphatase 41 (39-117) U/L Total Protein 5.8 L (5.9-8.4) gm/dL Albumin 2.9 L (3.2-5.2) gm/dL Triglycerides 80 (<150) mg/dl Calcium panel 06/10/17 Range/Units 03:40 Calcium 8.6 (8.6-10.4) mg/dl Phosphorus 3.8 (2.7-4.5) mg/dL Albumin 2.9 L (3.2-5.2) gm/dL Pituitary panel 06/10/17 Range/Units 03:40 Sodium 138 (133-145) mmol/L Potassium 4.2 (3.3-5.1) mmol/L Chloride 103 (96-108) mmol/L Carbon Dioxide 23 (22-30) mmol/L BUN 45 H (8-23) mg/dl Creatinine 2.2 H (0.7-1.2) mg/dl Glucose 93 (70-105) mg/dL Calcium 8.6 (8.6-10.4) mg/dl Adrenal panel 06/10/17 Range/Units 03:40 Sodium 138 (133-145) mmol/L Potassium 4.2 (3.3-5.1) mmol/L Chloride 103 (96-108) mmol/L Carbon Dioxide 23 (22-30) mmol/L BUN 45 H (8-23) mg/dl Creatinine 2.2 H (0.7-1.2) mg/dl Glucose 93 (70-105) mg/dL Calcium 8.6 (8.6-10.4) mg/dl Total Bilirubin 0.4 (0.0-1.0) mg/dL AST 20 (0-37) U/l ALT 28 (0-40) U/l Alkaline Phosphatase 41 (39-117) U/L Total Protein 5.8 L (5.9-8.4) gm/dL Albumin 2.9 L (3.2-5.2) gm/dL Assessment and Plan (1) SIRS (systemic inflammatory response syndrome) Problem details: SIRS, OPEN wounds Left foot DM Velazquez 2 TMA stump and dorsal surfqce of left foot and ulcer up to sub cuatneous adipoe tissue anterior lower leg . CELLULITIS foot and leg Status: Acute Current Visit: Yes - Narrative A/P Narrative: Assessment: SIRS, csssi, NON healing wounds Left TNA tump and pressure related traumatic ulceration, Left lower anterior leg ulcer with cellulitis, MDRO, CP, CHF partly compensated LOW flow states and orthostatic symptoms.) Elevated troponin, now stabilizing or trending down. LOW EF on ECHO Chronic wounds with periwound edema and dermatitis versus cellulitis improved with daily wound care and IV antibiotics. Case reviewed at length with Dr. Harrison, Hospitalist and patient and his brother ROLY also a CG. Cardiology input from Dr. Gan appreciated and discussed at length with ICU nursing staff and Hospitalist Physician . Plan: Conservative management at this time in a SNF setting, Continuation of ongoing wound care and anabiotics. Out patient care under supervision at a SNF. Out Patient f/u with ISAAK Gimenez at a later date. Out patient referral to EULOGIO hernández f/u at wound center at [facility] [place] - Time Spent With Patient Total time spent is greater than 50% in coordination of care (as documented) at patient's floor/unit and/or counseling patient: 25 - 35 minutes
[2017-06-10] MEDS: CLOPIDOGREL 75 MG TABLET PO SCH (21:24)
[2017-06-10] MEDS: ATORVASTATIN 20 MG TABLET PO SCH (21:24)
[2017-06-11] MEDS: PIPERACILLIN SODIUM/TAZOBACTAM 2.25 GM in DEXTROSE 5% IN WATER 50 ML IV SCH ×2 (00:35→05:44)
[2017-06-11] MEDS: NACL 0.9% W/KCL 20MEQ 1,000 ML IV SCH (00:38)
[2017-06-11] MEDS: PANTOPRAZOLE 40 MG TABLET PO SCH (07:02)
[2017-06-11] MEDS: LEVOTHYROXINE 50 MCG TABLET PO SCH (07:02)
[2017-06-11] MEDS ORDERED: FUROSEMIDE 40 MG TABLET PO SCH (08:00)
[2017-06-11] MEDS: FERROUS SULFATE 325 MG TABLET PO SCH (08:26)
[2017-06-11] MEDS: ASPIRIN 81 MG TAB.CHEW PO SCH (08:26)
[2017-06-11] MEDS: INSULIN LISPRO 1 UNIT/0.01 ML UNIT SQ SCH (08:26)
[2017-06-11] MEDS: VITAMIN D3 1,000 UNIT TABLET PO SCH (08:27)
[2017-06-11] MEDS: INSULIN GLARGINE, HUMAN 1 UNIT/0.01 ML SQ SCH (08:27)
[2017-06-11] MEDS: sitaGLIPtin 50 MG TABLET PO SCH (08:27)
[2017-06-11] MEDS: HEPARIN 5,000 UNIT/ML VIAL SQ SCH (08:27)
[2017-06-11] MEDS: FINASTERIDE 5 MG TABLET PO SCH (08:27)
[2017-06-11] MEDS: TAMSULOSIN 0.4 MG CAPSULE PO SCH (08:27)
[2017-06-11] MEDS: MULTIVIT,THER IRON,CA,FA & MIN 1 TABLET PO SCH (08:27)
[2017-06-11] MEDS: GABAPENTIN 100 MG CAPSULE PO SCH (08:27)
[2017-06-11] MEDS: COLLAGENASE TOP OINT TUBE 30GM TOPICAL SCH (08:29)
[2017-06-11] MEDS: 0.9 % SODIUM CHLORIDE 10 ML SYRINGE IV SCH (08:29)
[2017-06-11] MEDS: VANCOMYCIN 500 MG in 0.9 % SODIUM CHLORIDE 100 ML IV SCH (09:59)
--- NOTE | 2017-06-11 10:31 | Discharge Summary ---
Medical - DS: Prov Patient information: Note initiated : 06/11/17 at 10:31 am Patient: Doni Ramirez 77 y/o M admitted on 06/05/17 for Altered Mental/Left Diabetic Foot Infection. Date of admission: 06/05/17 17:15 Discharge date: 06/11/17 Primary care physician: Regan Cannon Admitting clinician: Amaya Garcia Consults: , wound care. He also reviewed the case with Dr. Lilly of plastic surgery Also telephone consultation, with Dr. Gan of cardiology Attending physician on discharge: Amaya Garcia Medical - DS: Meds - Discharge Medications Prescriptions: HYDROcodone/APAP 5/325MG [[place] 5/325Mg] 1 - 2 tab PO Q4HP PRN #30 tab PRN Reason: Pain Active and Home Medications: Discharge medications: Vancomycin 500 mg IV daily, 14 days Zosyn 2.25 g IV every 6 hours 14 days Tylenol 650 mg every 6 hours as needed Albuterol 2.5 mg nebulizer treatments every 4 hours as needed wheezing or shortness of breath Aspirin 81 mg daily Lipitor 40 mg nightly Plavix 75 mg nightly Collagenase ointment applied to wounds as directed. Colace 100 mg twice daily as needed constipation Iron 325 mg every morning for anemia Proscar 5 mg daily Lasix 40 mg p.o. twice daily Gabapentin 100 mg p.o. twice daily Heparin 5000 units subcu every 12 hours [place] 5/325 one every 4 hours as needed pain Lantus 35 units every morning NovoLog 8 units subcu with meals Multivitamin with minerals Levothyroxine 50 mcg daily Milk of magnesia 30 mL daily as needed constipation Nitroglycerin 0.4 mg sublingual every 5 minutes as needed anginal chest pain Zofran 4 mg sublingual every 4 hours as needed nausea Protonix 40 mg p.o. daily Januvia 25 mg daily Flomax 0.4 mg daily Vitamin D 1000 units daily Oxygen via nasal cannula, as needed, to maintain sats between 88 and 92%. Previous home Medications: aspirin 81 mg tablet,delayed release 81 mg PO QDAY tab 03/06/15 [History Confirmed 06/05/17 Last Taken 10/21/16] cholecalciferol (vitamin D3) 1,000 unit capsule 1,000 unit PO QDAY cap [History Confirmed 06/05/17 Last Taken 10/21/16] clopidogrel 75 mg tablet 75 mg PO QHS tab 03/06/15 [History Confirmed 06/05/17 Last Taken 10/21/16] finasteride 5 mg tablet 5 mg PO QDAY tab 03/06/15 [History Confirmed 06/05/17 Last Taken 10/21/16] levothyroxine 50 mcg capsule 50 mcg PO QDAY cap 03/06/15 [History Confirmed Last Taken 10/21/16] multivitamin tablet 1 tab PO QDAY tab 03/06/15 [History Confirmed 06/05/17 Last Taken 10/21/16] nitroglycerin 0.4 mg sublingual tablet 0.4 mg SUBLINGUAL Q5MIN PRN tab [History Confirmed 06/05/17 Last Taken 10/21/16] sitagliptin 100 mg tablet 100 mg PO QDAY tab 03/06/15 [History Confirmed Last Taken 10/21/16] tamsulosin 0.4 mg capsule 0.4 mg PO QDAY cap 03/06/15 [History Confirmed Last Taken 10/21/16] gabapentin 100 mg capsule 100 mg PO BID cap 05/14/15 [History Confirmed Last Taken 10/21/16] insulin aspart 100 unit/mL subcutaneous solution 8 unit SUB-Q ACHS ml 05/14/15 [History Confirmed 06/05/17 Last Taken 10/21/16] insulin glargine 100 unit/mL subcutaneous solution 35 unit SUB-Q QDAY ml [History Confirmed 06/05/17 Last Taken 10/21/16] HYDROcodone/APAP 5/325MG [[place] 5/325Mg] 1 - 2 tab PO Q4HP PRN #30 tab 09/22/15 [Rx Confirmed 06/05/17 Last Taken 10/21/16] furosemide 40 mg tablet 40 mg PO BID #180 tab 12/22/16 [Rx Confirmed 06/05/17 Last Taken Unknown] pantoprazole 40 mg tablet,delayed release 40 mg PO QDAY 90 Days 12/22/16 [ History Confirmed 06/05/17 Last Taken Unknown] ferrous sulfate 325 mg (65 mg iron) tablet 325 mg PO QDAY 04/14/17 [History Confirmed 06/05/17 Last Taken Unknown] Medical - DS: Hosp Hospital course: Mr. Ramirez is a 77 year old M June 05, 2017: History of present illness: Mr. Ramirez is a 77 year old with a history of type 2 diabetes, hypertension, chronic kidney disease, peripheral vascular disease, coronary disease who was treated recently for cellulitis. He also had a laparoscopic cholecystectomy in March. He has a chronic right knee ulcer as well as a left foot plantar neuropathic ulcer. He is generally followed at wound care. Today, his brother had him brought to the emergency room, for increasing confusion and high fever. ER evaluation showed leukocytosis, confusion, fever, consistent with SIRS syndrome. Patient is now admitted for further evaluation and treatment. By the time I got to see the patient, his brother had unfortunately gone home. The patient remains fairly lethargic and unable to answer most questions. On arrival, he was complaining of left-sided chest discomfort, which she could not really describe very well. He was given 2 sublingual nitroglycerin, after which he said the pain resolved. He is unable otherwise to tell me if he has recently had fever or chills, cough , chest pain or palpitations, shortness of breath, GI or symptoms. While he was in the emergency room he was noted to have lots of ectopy on his heart monitor. June 06: This morning, the patient is much more awake and alert. He says he is feeling much better. His brother is in the room with him, and says he seems almost back to normal. The brother tells me that at home the patient was running a fever, had poor appetite, and became quite confused yesterday. He tells me that they have been fighting ulcers on his right knee as well as his left foot for several months. The right knee ulcer is being managed by plastic surgery, and is now casted with a compression dressing. The brother says that has been looking really good lately. The left foot, has an ulcer of the foot stump, at the site of the previous amputation. This ulcer has had more drainage and redness lately. There is also a shallow ulcer on the foot dorsum as well as a shallow ulcer on the craig, which have been clean, but also not healing. The patient's brother states that the patient uses this left foot to bear all of his weight to stand and pivot, to help him with transfers. He agrees that this is probably preventing healing. The brother acts as the full-time caregiver. Today, the patient is awake and alert. He says he is feeling much better, and is hungry. He denies headaches or dizziness, sore throat or cough, chest pain or palpitations, shortness of breath, GI or symptoms. ...... June 11, 2017: Hospital course: -This patient was admitted with diarrhea syndrome, ongoing left diabetic foot infection, and medical delirium. His symptoms cleared fairly quickly once he was started on IV Zosyn and vancomycin. He is followed by of the wound care team. There is some concern for underlying osteomyelitis, but his MRI was canceled, as it was decided that his cardiac issues would not allow for amputation, even if that was indicated. At this time recommends continued IV antibiotics and local wound care, to see if we can make any headway. -On the day of admission, the patient did have recurrent angina, with upper trending troponins. Follow-up echocardiogram does show significant LV dysfunction with ejection fraction of 22%. This was reviewed with his chief technician, Dr. Gan, who felt that given this patient's multiple comorbidities, aggressive cardiac care was probably not indicated. The patient also often becomes bradycardic with sleep, down into the 30s, but remains generally asymptomatic. We did try him on BiPAP, as sometimes his respirations appear to be a Abelino-Miranda rhythm. Oxygen levels were fine with BiPAP, but it did not seem to change the breathing pattern or the heart rates. Dr. Gan has suggested the cardia may be in response to the CHF. -For his history of urine retention, Colvin catheter was placed. This also allowed for better wound care. The patient requested we leave this in place, given the difficulties he has getting in and out of bed to use a urinal. also wanted him to be nonweightbearing on his left foot. Today, the patient is annoyed, as he would really would like to get out of bed. He is waiting for a recliner to be brought to his room. Otherwise, he still seems a bit confused. He did pull out his PICC line this morning, saying "it was in my way". He otherwise denies fever chills, chest pain or palpitations, shortness of breath, abdominal pain, nausea or vomiting, diarrhea or constipation. On exam, he is awake and alert. He is a little bit irritable this morning. Heart rate is ranging from 46-51. Temperature is 98.3. Respiratory rate 20. Blood pressures range from 141-177/43-84. O2 saturation is 94% on room air. Neck is supple without JVD or lymphadenopathy. Cardiac exam shows slightly irregular rhythm. Lungs are essentially clear to auscultation. Abdomen is soft and nontender. Extremities:Extremities: Right lower extremity remains casted. Distal stump looks fine. Left foot is recently bandaged, and is not undressed. Dressings are clean and dry. Yesterday's exam showed: The distal foot wound as well as the dorsal foot wound do not have active drainage, but also do not have a clear wound bed. The more proximal leg wound does have a clean base. There is no obvious erythema. The foot is rather cool. Neurologic: The patient is awake, and cooperative, but mildly confused at times. Her exam is grossly nonfocal. A/P Narrative: #1. Infectious disease. Patient presented with signs and symptoms of SIRS syndrome, presumably due to ongoing left diabetic foot infection. He also presented with medical delirium. -Clinically he much better. Confusion seems to be mostly cleared. Fever resolved. -Continue IV Zosyn and vancomycin. total of 14 days of ABX as per Dr Michael. (I reviewed his case again with he was also been in touch with the plastic surgeon. After reviewing his echocardiogram, all of us feel that this patient would not tolerate aggressive, invasive care, such as an amputation. -The bottle caser and I then met with the patient's brother and POA, and reviewed the situation. He is in agreement that the patient would be unlikely to tolerate aggressive care. He is willing to go with 's suggestion of continued IV antibiotics and local wound care for now. He otherwise would like the patient to be kept comfortable. He understands our opinion about why we probably should proceed with pacemaker or cardiac angiogram at this point.) The patient's CODE STATUS remains DNR. Infection is likely due to ongoing wounds of both lower extremities, complicated by peripheral vascular disease and diabetes. -Continue wound care per instructions from Dr. Lentz. Continue IV antibiotics for at least 2 weeks. 2. Neurologic. Medical delirium waxes and wanes a bit, likely due to illness and also to medications. Given his severe CHF, poor perfusion is likely playing a role as well. 3. Endocrine. -History of type 2 diabetes. Glucoses are ranging from 133-210. Continue Lantus plus sliding scale. -hypothyroidism. Continue levothyroxine. 4. Cardiac. -Coronary artery disease. Patient had chest pain on arrival. This resolved after 2 sublingual nitroglycerin. Second and third troponin did trend upwards, but again is unclear how to interpret this in the setting of his renal failure. A follow-up troponin was trending back down. . He will continue with aspirin and Plavix. -Echocardiogram from shows significant systolic dysfunction. ( I reviewed his case with his chief technician, Dr. Gan. He suggests that the Abelino-Miranda breathing pattern may be a result of significant heart failure. He does not believe, however, that a chief technician would accept the patient at this time to do a pacemaker, given that the patient has an active infection. He suggested we continue to treat his infection and otherwise treat him supportively, before deciding. He thinks that given the patient's multiple comorbidities, that he would be unlikely to benefit from aggressive cardiac intervention, and suggested we discusse this with his brother and caregiver. Dr. Gan also offered to talk with the patient's brother himself.) -All of these issues were reviewed with the patient's brother/POA . At this time we are going to continue with current medications and supportive care. Our current plan is not to pursue any invasive measures, such as a pacemaker or an angiogram. -BiPAP did not seem to help with the patient's nighttime bradycardia or Abelino- Miranda breathing pattern. Continue supplemental oxygen as needed. -Hypertension. Continue aspirin. Lasix resumed. 5. Vascular. Known vascular disease, likely contributing to poor wound healing. Continue Plavix and aspirin. 6. Renal. History of Chronic kidney disease stage III kidney disease, followed by Dr. Brown. Renal function looks somewhat better today monitor renal function Consult dr Brown if worsneing renal function. 7. . History of urine retention. Also history of UTI. Colvin catheter is in place, and patient requests that we leave it in place, so that he does not have to get up and down to urinate. He would like to keep his foot elevated, and I suspect would prefer that he stay nonweightbearing. 8. DVT prophylaxis: Continue aspirin and Plavix. Added low-dose heparin until more mobile. 9. CODE STATUS: The patient's brother signed a polst form asking for DNR . 10. GI. Status post recent laparoscopic cholecystectomy March 29, 2017. Discharge diagnosis: SIRS. Infected diabetic foot ulcer. Coronary disease, status post unstabl Secondary discharge diagnosis: Type 2 diabetes. Severe CHF. - Time Spent with Patient Total time spent providing and/or coordinating discharge services: Greater than 30 minutes Medical - DS: Exam - Constitutional Vitals: Vital Signs Temp Pulse Pulse Resp BP BP BP 06/11/17 08:00 98.3 F 50 L 20 174/82 06/11/17 04:00 98.3 F 51 L 16 177/84 06/11/17 00:02 167/76 06/10/17 20:12 141/43 06/10/17 20:00 98.4 F 56 L 22 141/43 06/10/17 16:42 169/64 06/10/17 16:00 98.6 F 64 18 169/64 06/10/17 12:00 97.6 F 53 L 18 132/51 06/10/17 11:30 132/51 Pulse Ox 06/11/17 08:00 94 06/11/17 04:00 97 06/11/17 00:02 06/10/17 20:12 06/10/17 20:00 96 06/10/17 16:42 06/10/17 16:00 100 06/10/17 12:00 100 06/10/17 11:30 Intake and Output 06/10/17 06/11/17 06/11/17 21:59 05:59 13:59 Intake Total 220 / 220 250 / 250 150 / 150 Output Total 475 / 475 1825 / 1825 Balance -255 / -255 -1575 / -1575 150 / 150 Intake: IV 100 / 100 50 / 50 150 / 150 Zosyn 2.25 gm In Dextrose 100 / 100 50 / 50 50 / 50 5% in Water 50 ml @ 100 mls/hr IV Q6H [facility] Rx#: [id number] Vancomycin 500 mg In 100 / 100 Sodium Chloride 0.9% 100 ml @ 100 mls/hr IV DAILY [facility] Rx#:[id number] Oral 120 / 120 200 / 200 Output: Void Amount 475 / 475 1825 / 1825 Other: Weight 200 lb 11.2 oz Medical - DS: Data Labs on day of discharge: Labs from last 24 hours 06/05/17 20:04 Creatine Kinase 51 CK-MM (CK-3) 100 CK-MB (CK-2) 0 CK-BB (CK-1) CK Isoenzymes Interp Not Reportable June 10: Vancomycin trough is a little bit high at 12 White blood cell count 5000, hemoglobin 9.9, hematocrit 30, platelets 134,000. Differential is normal. Chemistry panel shows sodium 138, potassium 4.2, chloride 103, CO2 23, anion gap 12, BUN 45, creatinine 2.2 Total protein is low at 5.8, albumin low at 2.9. Otherwise LFTs are within normal limits. Total cholesterol: 105, triglycerides 134, LDL 64, HDL 15 June 08: Echocardiogram: Left ventricle is moderately dilated, with severely reduced ejection fraction of 22%. The mid to basal anteroseptal wall is dyskinetic. LV diastolic function is consistent with grade 3 diastolic dysfunction. He has biatrial enlargement. Moderate to severe mitral calcification. Mild to moderate mitral regurgitation. Probable severe pulmonary hypertension. June 07: Left foot wound Gram stain: Shows a few polys, no organisms. Culture is now growing a stenotrophomonas maltophilia, scant growth, sensitive to Levaquin, minocycline, Bactrim June 06: Blood cultures are negative so far. June 05: CBC: White blood cell count 14,900, hemoglobin 11, hematocrit 33.8, RDW 17, absolute granulocyte count 13,400, lymphocyte count 600 Venous blood gas: PH 7.45 CO2 25, PO2 122, lactic acid normal at 2.0 Chemistry panel: Bicarb is low at 18, anion gap elevated at 20, BUN 41, creatinine 1.8, glucose 355, ionized calcium low at 1.15 Troponin is elevated at 0.05, 0.07, 0.10 Urinalysis: Shows greater than 500 mg of protein, greater than 500 glucose, negative nitrites and negative leukocyte esterase. Chest x-ray shows mild cardiomegaly. CHF seen on June 03, shows near complete resolution. EKG: Is probable atrial fibrillation at a rate of 72, left axis deviation, probable old anteroseptal CA, PVCs noted, no significant ST-T changes when compared to his last EKG from March 30, 2017. Frequent ventricular ectopy was noted on arrival to the emergency room. Medical - DS: A/P - Patient/Caregiver Discharge Instructions Activity: as per physical therapy Diet: Consistent Carbohydrate Prescriptions: HYDROcodone/APAP 5/325MG [[place] 5/325Mg] 1 - 2 tab PO Q4HP PRN #30 tab PRN Reason: Pain Other Amb Orders: Aspiration Precautions Location: Determined By Patient Fall Risk Location: Determined By Patient OT Discharge Order Location: Determined By Patient Physical Therapy at Discharge - General Location: Determined By Patient Outpatient PICC Care Location: Determined By Patient Wound Care/Dressings Location: Determined By Patient Wound Care Instructions Location: Determined By Patient Basic Metabolic Panel Time Frame: 2 Days, Location: Determined By Patient Complete Blood Count Time Frame: 2 Days, Location: Determined By Patient - Follow up Plan Follow up with: Regan Cannon MD [Primary Care Provider] - Disposition: Xfer SNF Prognosis: Fair Rehab Potential: Fair I certify that the patient requires SNF services: Yes Overall status at discharge: patient is progressing back to baseline Medical - DS: Qual - VTE Deep Vein Thrombosis/Pulmonary Embolism Present on Admission: No
== END 2017-06-11 13:45 | DRG 602 ==
LOC: ED 09:29 → ICU 17:10
PROVIDERS: ADMIT Internal Medicine; ATTEND Internal Medicine